=== PATIENT | male | born 1960 | race Caucasian/White ===

== ENCOUNTER 2017-10-14 10:36 | Inpatient (IN) | payer OTHER ==
[2017-10-14] MEDS ORDERED: RX INFO: IV CONTRAST WAS GIVEN 1 EACH MISC MISCELLANE PRN (13:31)
[2017-10-14 14:24] LABS: Basophils % (A) 0 %; Eosinophils # (A) 0.1 k/uL (0-0.7); Eosinophils % (A) 1 %; Hypochromasia Moderate; Lymphocytes % (A) 23 %; MCHC 31.2 g/dL (31.0-37.0); MCV 92.7 fL (80.0-100.0); Mean Platelet Volume 8.2; Monocytes # (A) 0.7 k/uL (0-1.0); Monocytes % (A) 8 %; Neutrophils # (A) 5.7 k/uL (1.3-7.7); Neutrophils % (A) 66 %; Platelet Count 235 k/uL (150-450); RBC 6.23 m/uL (4.30-5.90); RDW 14.4 % (11.5-15.5); WBC 8.7 k/uL (3.8-10.6)
[2017-10-14 14:26] LABS: HCT 57.7 % (39.0-53.0)
--- NOTE | 2017-10-14 15:08 | CT ---
EXAMINATION TYPE: CT chest w con DATE OF EXAM: 10/14/2017 COMPARISON: NONE HISTORY: SOB CT DLP: 818 mGycm Automated exposure control for dose reduction was used. CONTRAST: CT scan of the chest is performed with IV Contrast, patient injected with 100 mL of Isovue 300. FINDINGS: LUNGS: Scattered areas of patchy infiltrate within the right upper lobe as well as the lingula. Scatt ered groundglass infiltrates seen. Basilar compressive atelectasis. No pleural effusion or mass. MEDIASTINUM: 1.2 cm prevascular space lymph node noted. AP window lymph node measuring 9 mm. Low righ t paratracheal lymph node measuring 1.2 cm. Bilateral hilar adenopathy measuring 1.3 cm on the right and 1.1 cm on the left. Thoracic aorta is of normal caliber. The heart is not enlarged. UPPER ABDOMEN: No significant abnormality appreciated. OTHER: Adrenal glandular thickening noted on the left. IMPRESSION: 1. Scattered areas of infiltrate may reflect pneumonia. Correlate clinically. 2. Mediastinal and hilar adenopathy may be reactive in nature. Correlate clinically and consider prog ress studies. 3. Sliding-type hiatal hernia. 4. Nonspecific Adrenal glandular thickening on the left.
--- NOTE | 2017-10-14 16:00 | P.CNPUL ---
<Xiomara Montemayor E - Last Filed: 10/14/17 15:49> History of Present Illness Consult date: 10/14/17 Requesting physician: Irineo Mukherjee Reason for consult: pneumonia Chief complaint: shortness of breath History of present illness: This is a 57-year-old male patient being seen examined and evaluated for consultation. This patient is well-known to to our services. This patient comes in after direction from Dr. Tejada's office for having some significant hypoxia satting 72% on room air. He also has been complaining of a congested cough with yellow sputum. He is a half a pack to 1 pack per day smoker for approximately 25-30 years. Patient said on Saturday he also noticed some bilateral lower extremity swelling however denies any pain. Upon examination the patient's resting up in bed on 4 L of supplemental oxygen via nasal cannula. He is noted to have an elevated d-dimer of 0.61 and an elevated troponin of 0.042. BNP is 925. WBC is 8.7 and hemoglobin of 18. Patient is currently being transferred to the selective care unit. He did undergo a CT of the chest which did reveal scattered areas of infiltrates which may reflect pneumonia, mediastinal and hilar adenopathy which may be reactive nature, sliding type hiatal hernia and a nonspecific adrenal granular thickening on the left. Bilateral lower extremity Doppler has been ordered. A stat CMP has been ordered if the patient's kidney function is in normal range we will order a CTA at that time. Review of Systems 14 point review of systems was completed and is negative unless noted above in the HPI Past Medical History Past Medical History: COPD, Pneumonia Additional Past Medical History / Comment(s): Pt states prior to today, he was never diagnosed with copd, pneumonia 20 yrs ago, chronic back pain, R arm numbness/tingling and also involves R shoulder. History of Any Multi-Drug Resistant Organisms: None Reported Additional Past Surgical History / Comment(s): Colonoscopies with benign polypectomy, back injections. Past Anesthesia/Blood Transfusion Reactions: No Reported Reaction Smoking Status: Current every day smoker - Past Family History Father Family Medical History: COPD Additional Family Medical History / Comment(s): Father of copd at the age of 69yrs. He was a smoker. Mother Family Medical History: COPD, Hypertension Additional Family Medical History / Comment(s): Mother at the age of 78yrs. Medications and Allergies Home Medications Medication Instructions Recorded Confirmed Type Gabapentin [Neurontin] 300 mg PO BID 10/14/17 10/14/17 History Hydrocodone/Acetaminophen [[place] 1 tab PO TID PRN 10/14/17 10/14/17 History 10-325] Allergies Allergy/AdvReac Type Severity Reaction Status Date / Time No Known Allergies Allergy Verified 10/14/17 15:40 Physical Exam Vitals: Vital Signs Temp Pulse Resp BP Pulse Ox 10/14/17 14:15 97.9 F 81 18 130/78 90 L 10/14/17 12:31 98.0 F 73 18 141/85 91 L 10/14/17 12:22 98.0 F 91 18 141/85 91 L Intake and Output 10/14/17 10/14/17 10/14/17 06:59 14:59 22:59 Other: Weight 126.552 kg GENERAL EXAM: Alert, active, comfortable in no apparent distress. HEAD: Normocephalic. EYES: Normal reaction of pupils, equal size. NOSE: Clear with pink turbinates. THROAT: No erythema or exudates. NECK: No masses, no JVD. CHEST: No chest wall deformity. LUNGS: Poor air entry noted throughout with scattered end expiratory wheezes CVS: S1 and S2 normal with no audible mumurs, regular rhythm. ABDOMEN: No hepatosplenomegaly, normal bowel sounds, no guarding or rigidity. EXTREMITIES: +1 edema noted, pedal pulses palpable. CENTRAL NERVOUS SYSTEM: No focal deficits, tone is normal in all 4 extremities. Results - Laboratory Findings CBC and BMP: 10/14/17 13:45 PT/INR, D-dimer D-Dimer 0.61 mg/L FEU (<0.60) H 10/14/17 13:45 Abnormal lab findings: Abnormal Labs 10/14/17 10/14/17 10/14/17 13:45 13:45 13:45 RBC 6.23 H Hgb 18.0 H Hct 57.7 H D-Dimer 0.61 H Troponin I 0.042 H* - Diagnostic Findings CT scan - chest: report reviewed, image reviewed Assessment and Plan Assessment: Assessment Pneumonia Polycythemia likely related to chronic hypoxemia Elevated troponins Acute hypoxic respiratory failure requiring supplemental oxygen Nicotine dependence Bilateral lower extremity edema Mediastinal and hilar adenopathy on CT of the chest Sliding-type hiatal hernia on CT Suspect NOLA Plan Medications have been reviewed and will be continued as ordered. Antibiotics and steroids Mucinex, and Singulair DuoNeb and budesonide nebulizer treatments Smoking cessation Initiate and encourage incentive spirometer and flutter valve Obtain sputum culture Stat Doppler of the bilateral lower extremities Stat CMP if his kidney function within normal limits may obtain a CTA Labs: IgE, [place] ALLERGY panel, hypersensitivity pneumonitis, alpha-1 antitrypsin Continue with pulmonary hygiene, coughing and deep breathing exercises, and supportive care. Supplemental oxygen to maintain oxygen saturations of 92% or better. Continue nebulizer treatments. GI and DVT prophylaxis. Patient would benefit from a sleep study in the outpatient setting Cardiology on consult, echocardiogram will be obtained We will continue to monitor labs/results and adjust treatment as necessary. Further recommendations pending. Thank you for this consultation we will continue to follow this patient with you I performed an examination of the patient and discussed their management with the nurse practitioner. I have reviewed the nurse practitioner's note and agree with the documented findings and plan of care. <María Borjas - Last Filed: 10/14/17 16:29> Physical Exam Osteopathic Statement: *. No significant issues noted on an osteopathic structural exam other than those noted in the History and Physical/Consult. Vitals: Vital Signs Temp Pulse Resp BP Pulse Ox 10/14/17 14:15 97.9 F 81 18 130/78 90 L 10/14/17 12:31 98.0 F 73 18 141/85 91 L 10/14/17 12:22 98.0 F 91 18 141/85 91 L Intake and Output 10/14/17 10/14/17 10/14/17 06:59 14:59 22:59 Other: Weight 126.552 kg Results - Laboratory Findings CBC and BMP: 10/14/17 13:45 10/14/17 15:46 PT/INR, D-dimer D-Dimer 0.61 mg/L FEU (<0.60) H 10/14/17 13:45 Abnormal lab findings: Abnormal Labs 10/14/17 10/14/17 10/14/17 13:45 13:45 13:45 RBC 6.23 H Hgb 18.0 H Hct 57.7 H D-Dimer 0.61 H Carbon Dioxide BUN Creatinine Troponin I 0.042 H* LDL Cholesterol, Calc HDL Cholesterol 10/14/17 15:46 RBC Hgb Hct D-Dimer Carbon Dioxide 36 H BUN 8 L Creatinine 0.58 L Troponin I LDL Cholesterol, Calc 121 H HDL Cholesterol 34 L Assessment and Plan Assessment: Patient seen and examined. Patient with hypoxia. This is likely chronic as the patient does have polycythemia as well. Concern for underlying COPD as well as obstructive sleep apnea. CTA of the chest. IgE, ALLERGY panel, hypersensitivity pneumonitis panel, alpha-1 antitrypsin. Smoking cessation is highly recommended. Pulmicort and duo nebs. Singulair. Concern for possible HP as the patient did not have any signs or symptoms of pneumonia. Lower extremity Dopplers. Cardiology recommendations for elevated troponin. Echocardiogram pending. ~María Borjas DO
[2017-10-14 16:14] LABS: ALT 39 U/L (21-72); AST 18 U/L (17-59); Albumin 3.6 g/dL (3.5-5.0); Alkaline Phosphatase 48 U/L (38-126); Anion Gap 9 mmol/L; Blood Urea Nitrogen 8 mg/dL (9-20); Calcium 8.7 mg/dL (8.4-10.2); Carbon Dioxide 36 mmol/L (22-30); Chloride 100 mmol/L (98-107); Cholesterol 171 mg/dL (<200); Glucose 85 mg/dL (74-99); HDL Cholesterol 34 mg/dL (40-60); LDL Cholesterol,Calculated 121 mg/dL (0-99); Potassium 4.4 mmol/L (3.5-5.1); Sodium 145 mmol/L (137-145); Total Bilirubin 0.5 mg/dL (0.2-1.3); Total Protein 6.4 g/dL (6.3-8.2); Triglycerides 78 mg/dL (<150)
[2017-10-14] MEDS: LEVOFLOXACIN 500 MG TAB PO SCH (16:39)
--- NOTE | 2017-10-14 17:22 | US ---
EXAMINATION TYPE: US venous doppler duplex LE BI DATE OF EXAM: 10/14/2017 5:12 PM COMPARISON: NONE CLINICAL HISTORY: edema. Difficult exam due to patient body habitus SIDE PERFORMED: Bilateral TECHNIQUE: The lower extremity deep venous system is examined utilizing real time linear array sonog quinten with graded compression, doppler sonography and color-flow sonography. VESSELS IMAGED: External Iliac Vein (EIV) Common Femoral Vein Deep Femoral Vein Greater Saphenous Vein * Femoral Vein Popliteal Vein Small Saphenous Vein * Proximal Calf Veins (* superficial vessels) FINDINGS: Grayscale, color doppler, spectral doppler imaging performed of the deep veins of the lower extremities. There is normal flow, compressibility, vascular waveforms. IMPRESSION: RIGHT LOWER EXTREMITY: NEGATIVE FOR DVT. LEFT LOWER EXTREMITY: NEGATIVE FOR DVT.
[2017-10-14] MEDS: methylPREDNISolone SOD SUCCI 125 MG/2 ML VIAL IV SCH ×2 (17:45→23:22)
[2017-10-14] MEDS: HEPARIN SODIUM,PORCINE 5,000 UNIT/ML 1 ML VIAL SQ SCH ×2 (17:47→23:24)
[2017-10-14] MEDS: PANTOPRAZOLE 40 MG TABLET PO SCH (17:47)
[2017-10-14] MEDS: BUDESONIDE 0.5 MG/2 ML NEBU INHALATION SCH (19:24)
[2017-10-14] MEDS: IPRATROPIUM-ALBUTEROL 3 ML NEB INHALATION SCH (19:24)
[2017-10-14] MEDS: MONTELUKAST 10 MG TAB PO SCH (20:34)
[2017-10-14] MEDS: guaiFENesin 600 MG TABLET.ER PO SCH (20:34)
[2017-10-14 21:09] LABS: Glucose,Whole Blood 102 mg/dL (75-99)
[2017-10-14 22:59] LABS: Hemoglobin A1C 5.8 % (4.0-6.0)
[2017-10-14 23:00] LABS: Glucose,Whole Blood 112 mg/dL (75-99)
[2017-10-14 23:30] LABS: ABG Base Excess 8.5 mmol/L; ABG HCO3 35 mmol/L (21-25); ABG Oxygen Saturation 86.1 % (94-97); ABG PO2 55 mmHg (83-108); ABG TCO2 37 mmol/L (19-24)
[2017-10-14 23:37] LABS: ABG PCO2 71 mmHg (35-45)
[2017-10-15 02:48] LABS: Basophils % (A) 0 %; Eosinophils % (A) 0 %; HCT 54.5 % (39.0-53.0); HGB 16.8 gm/dL (13.0-17.5); Hypochromasia Marked; Lymphocytes # (A) 0.8 k/uL (1.0-4.8); Lymphocytes % (A) 9 %; MCH 29.1 pg (25.0-35.0); MCHC 30.8 g/dL (31.0-37.0); MCV 94.3 fL (80.0-100.0); Mean Platelet Volume 7.8; Monocytes # (A) 0.3 k/uL (0-1.0); Monocytes % (A) 3 %; Neutrophils # (A) 7.7 k/uL (1.3-7.7); Neutrophils % (A) 87 %; Platelet Count 235 k/uL (150-450); RBC 5.78 m/uL (4.30-5.90); RDW 14.2 % (11.5-15.5); WBC 8.8 k/uL (3.8-10.6)
[2017-10-15 02:49] LABS: ALT 37 U/L (21-72); AST 28 U/L (17-59); Albumin 3.7 g/dL (3.5-5.0); Alkaline Phosphatase 47 U/L (38-126); Anion Gap 11 mmol/L; Blood Urea Nitrogen 9 mg/dL (9-20); Carbon Dioxide 31 mmol/L (22-30); Chloride 100 mmol/L (98-107); Glucose 102 mg/dL (74-99); Potassium 5.5 mmol/L (3.5-5.1); Sodium 142 mmol/L (137-145); Total Bilirubin 0.7 mg/dL (0.2-1.3); Total Protein 6.5 g/dL (6.3-8.2)
[2017-10-15 06:09] LABS: Glucose,Whole Blood 101 mg/dL (75-99)
[2017-10-15] MEDS: PANTOPRAZOLE 40 MG TABLET PO SCH (06:23)
[2017-10-15] MEDS: methylPREDNISolone SOD SUCCI 125 MG/2 ML VIAL IV SCH ×4 (06:23→23:37)
[2017-10-15] MEDS: BUDESONIDE 0.5 MG/2 ML NEBU INHALATION SCH ×2 (07:53→20:37)
[2017-10-15] MEDS: IPRATROPIUM-ALBUTEROL 3 ML NEB INHALATION SCH ×3 (07:53→20:37)
[2017-10-15] MEDS: guaiFENesin 600 MG TABLET.ER PO SCH ×2 (09:03→20:09)
[2017-10-15] MEDS: HEPARIN SODIUM,PORCINE 5,000 UNIT/ML 1 ML VIAL SQ SCH ×3 (09:03→23:37)
--- NOTE | 2017-10-15 09:09 | HP ---
HISTORY AND PHYSICAL CHIEF COMPLAINT: This is a 57-year-old white male admitted for severe hypoxemia 72% on room air to 78% with cough with yellow sputum, half a pack of cigarettes for 25 to 30 years. He has gained 16 pounds in the last 2 months. He normally walks around on room air. He has never been saturating below 90% ever before. Never had shortness of breath like this before or swelling like this before. He had elevated D-dimer 0.61 and elevated troponin. BNP was 925. White count is 8.7, hemoglobin is 18. CT of the chest shows pneumonia, adenopathy, hiatal hernia. Dopplers of the lower legs were negative for blood clot. Will start him on some IV Lasix at this time as well as broad-spectrum antibiotics. REVIEW OF SYSTEM: Fourteen-point review is negative except for as mentioned in HPI. PAST MEDICAL HISTORY: Nicotine addiction, COPD, pneumonia, 20 years chronic back pain, right arm numbness, tingling. SURGERIES: Colonoscopy with benign polypectomy, back injections. FAMILY HISTORY: Father COPD, age 69, smoker. Mother has COPD, hypertension. HOME MEDICINES: Neurontin and [place]. ALLERGIES: No known drug allergies. PHYSICAL EXAMINATION: VITAL SIGNS: Temp 97.9, pulse 81, respiratory 16 to 18, blood pressure 130s over 80s, O2 is 90% on 4 L, on room air. Generally, he looks swollen, puffy everywhere. HEMATOLOGY: 2 to 3+ pedal edema bilaterally. ABDOMEN: Distended due to obesity. No hepatosplenomegaly. CARDIOVASCULAR: S1, S2. Lungs shows decreased breath sounds x4. CHEST: No chest wall abnormalities. Neck showed no JVD. Nose, clear picture of THROAT: No erythema, no exudate. [id number], hematocrit 57.7. D-dimer 0.61. Troponin 0.042. ASSESSMENT: 1. Community-acquired pneumonia secondary polycythemia secondary to chronic hypoxemia. 2. Elevated troponin, rule out myocardial infarction. 3. Nicotine addiction. 4. Acute hypoxemic respiratory distress. 5. Suspect right-sided heart failure secondary to chronic obstructive pulmonary disease. 6. Mediastinal hilar adenopathy on CAT scan of the chest. 7. Sliding hiatal hernia. 8. Suspect sleep apnea. Start him on IV antibiotics, IV steroids, IV Lasix. Echo was ordered. IV Lasix will be needed. Please see further orders. MMODL / IJN: [id number] /
[2017-10-15] MEDS: FUROSEMIDE 10 MG/ML 4 ML VIAL IV SCH ×2 (09:10→20:09)
--- NOTE | 2017-10-15 09:53 | P.PN ---
Subjective Progress Note Date: 10/15/17 HPI: This is a 57-year-old male patient being seen examined and evaluated for consultation. This patient is well-known to to our services. This patient comes in after direction from Dr. Tejada's office for having some significant hypoxia satting 72% on room air. He also has been complaining of a congested cough with yellow sputum. He is a half a pack to 1 pack per day smoker for approximately 25-30 years. Patient said on Saturday he also noticed some bilateral lower extremity swelling however denies any pain. Upon examination the patient's resting up in bed on 4 L of supplemental oxygen via nasal cannula. He is noted to have an elevated d-dimer of 0.61 and an elevated troponin of 0.042. BNP is 925. WBC is 8.7 and hemoglobin of 18. Patient is currently being transferred to the selective care unit. He did undergo a CT of the chest which did reveal scattered areas of infiltrates which may reflect pneumonia, mediastinal and hilar adenopathy which may be reactive nature, sliding type hiatal hernia and a nonspecific adrenal granular thickening on the left. Bilateral lower extremity Doppler has been ordered. A stat CMP has been ordered if the patient's kidney function is in normal range we will order a CTA at that time. Interval history 10/15/17- patient is being seen examined and evaluated today on rounds. Patient did undergo bilateral lower extremity Doppler yesterday which was negative. Overnight the patient did have some episodes of hypoxia and the nurse noted that the patient was blue. He was awoken and ABGs were drawn stat his pH was 7.3 pCO2 of 71, O2 55 and HCO3 was 35. BiPAP was ordered and the patient refused at that time and wanted to just use nasal cannula. His oxygen saturations did come up nicely while awake on supplemental oxygen. This was discussed with the patient that he could possibly be doing this chronically at home. And the importance of his sleep study is reiterated. Patient states he understands the risk of untreated severe sleep apnea and he would like to trial the BiPAP tonight. Upon examination is resting up in bed on supplemental oxygen via nasal cannula. States he does have some shortness of breath with exertion however feels better since admission. We'll obtain a CTA of the chest to rule out PE this is discussed with the patient and he is agreeable. Objective - Vital Signs Vital signs: Vital Signs Temp 97.4 F L 10/15/17 09:14 Pulse 90 10/15/17 09:15 Resp 20 10/15/17 09:15 BP 152/70 10/15/17 09:14 Pulse Ox 91 L 10/15/17 09:14 Intake & Output 10/14/17 10/15/17 10/15/17 18:59 06:59 18:59 Intake Total 240 150 100 Output Total 200 Balance 240 150 -100 Weight 126.552 kg 133.5 kg Intake: Oral 240 150 100 Output: Urine 200 Other: Voiding Method Toilet Toilet Toilet # Voids 1 1 - Exam GENERAL EXAM: Alert, active, comfortable in no apparent distress. HEAD: Normocephalic. EYES: Normal reaction of pupils, equal size. NOSE: Clear with pink turbinates. THROAT: No erythema or exudates. NECK: No masses, no JVD. CHEST: No chest wall deformity. LUNGS: Poor air entry noted throughout with scattered end expiratory wheezes CVS: S1 and S2 normal with no audible mumurs, regular rhythm. ABDOMEN: No hepatosplenomegaly, normal bowel sounds, no guarding or rigidity. EXTREMITIES: +1 edema noted, pedal pulses palpable. CENTRAL NERVOUS SYSTEM: No focal deficits, tone is normal in all 4 extremities. - Labs CBC & Chem 7: 10/15/17 01:02 10/15/17 01:02 Labs: Abnormal Lab Results - Last 24 Hours (Table) 10/14/17 10/14/17 10/14/17 Range/Units 13:45 13:45 13:45 RBC 6.23 H (4.30-5.90) m/uL Hgb 18.0 H (13.0-17.5) gm/dL Hct 57.7 H (39.0-53.0) % MCHC (31.0-37.0) g/dL Lymphocytes # (1.0-4.8) k/uL D-Dimer 0.61 H (<0.60) mg/L FEU ABG pH (7.35-7.45) ABG pCO2 (35-45) mmHg ABG pO2 (83-108) mmHg ABG HCO3 (21-25) mmol/L ABG Total CO2 (19-24) mmol/L ABG O2 Saturation (94-97) % Potassium (3.5-5.1) mmol/L Carbon Dioxide (22-30) mmol/L BUN (9-20) mg/dL Creatinine (0.66-1.25) mg/dL Glucose (74-99) mg/dL POC Glucose (mg/dL) (75-99) mg/dL Troponin I 0.042 H* (0.000-0.034) ng/mL LDL Cholesterol, Calc (0-99) mg/dL HDL Cholesterol (40-60) mg/dL 10/14/17 10/14/17 10/14/17 Range/Units 15:46 21:07 22:57 RBC (4.30-5.90) m/uL Hgb (13.0-17.5) gm/dL Hct (39.0-53.0) % MCHC (31.0-37.0) g/dL Lymphocytes # (1.0-4.8) k/uL D-Dimer (<0.60) mg/L FEU ABG pH (7.35-7.45) ABG pCO2 (35-45) mmHg ABG pO2 (83-108) mmHg ABG HCO3 (21-25) mmol/L ABG Total CO2 (19-24) mmol/L ABG O2 Saturation (94-97) % Potassium (3.5-5.1) mmol/L Carbon Dioxide 36 H (22-30) mmol/L BUN 8 L (9-20) mg/dL Creatinine 0.58 L (0.66-1.25) mg/dL Glucose (74-99) mg/dL POC Glucose (mg/dL) 102 H 112 H (75-99) mg/dL Troponin I (0.000-0.034) ng/mL LDL Cholesterol, Calc 121 H (0-99) mg/dL HDL Cholesterol 34 L (40-60) mg/dL 10/14/17 10/15/17 10/15/17 Range/Units 23:26 01:02 01:02 RBC (4.30-5.90) m/uL Hgb (13.0-17.5) gm/dL Hct 54.5 H (39.0-53.0) % MCHC 30.8 L (31.0-37.0) g/dL Lymphocytes # 0.8 L (1.0-4.8) k/uL D-Dimer (<0.60) mg/L FEU ABG pH 7.30 L (7.35-7.45) ABG pCO2 71 H* (35-45) mmHg ABG pO2 55 L (83-108) mmHg ABG HCO3 35 H (21-25) mmol/L ABG Total CO2 37 H (19-24) mmol/L ABG O2 Saturation 86.1 L (94-97) % Potassium 5.5 H (3.5-5.1) mmol/L Carbon Dioxide 31 H (22-30) mmol/L BUN (9-20) mg/dL Creatinine 0.60 L (0.66-1.25) mg/dL Glucose 102 H (74-99) mg/dL POC Glucose (mg/dL) (75-99) mg/dL Troponin I (0.000-0.034) ng/mL LDL Cholesterol, Calc (0-99) mg/dL HDL Cholesterol (40-60) mg/dL 10/15/17 Range/Units 06:07 RBC (4.30-5.90) m/uL Hgb (13.0-17.5) gm/dL Hct (39.0-53.0) % MCHC (31.0-37.0) g/dL Lymphocytes # (1.0-4.8) k/uL D-Dimer (<0.60) mg/L FEU ABG pH (7.35-7.45) ABG pCO2 (35-45) mmHg ABG pO2 (83-108) mmHg ABG HCO3 (21-25) mmol/L ABG Total CO2 (19-24) mmol/L ABG O2 Saturation (94-97) % Potassium (3.5-5.1) mmol/L Carbon Dioxide (22-30) mmol/L BUN (9-20) mg/dL Creatinine (0.66-1.25) mg/dL Glucose (74-99) mg/dL POC Glucose (mg/dL) 101 H (75-99) mg/dL Troponin I (0.000-0.034) ng/mL LDL Cholesterol, Calc (0-99) mg/dL HDL Cholesterol (40-60) mg/dL Microbiology - Last 24 Hours (Table) 10/14/17 20:41 Gram Stain - Preliminary Sputum Sputum Culture - Preliminary Assessment and Plan Assessment: Assessment Possible Pneumonia, vs possible hypersensitivity pneumonitis Polycythemia likely related to chronic hypoxemia Elevated troponins Acute hypoxic respiratory failure requiring supplemental oxygen Suspect underlying COPD Nicotine dependence Bilateral lower extremity edema Mediastinal and hilar adenopathy on CT of the chest Sliding-type hiatal hernia on CT Suspect [place] Plan Medications have been reviewed and will be continued as ordered. Antibiotics and steroids Mucinex, and Singulair DuoNeb and budesonide nebulizer treatments Smoking cessation Initiate and encourage incentive spirometer and flutter valve Obtain sputum culture Stat Doppler of the bilateral lower extremities, negative Obtain a CTA of the chest Labs: IgE, [place] ALLERGY panel, hypersensitivity pneumonitis, alpha-1 antitrypsin, pending Continue with pulmonary hygiene, coughing and deep breathing exercises, and supportive care. Supplemental oxygen to maintain oxygen saturations of 92% or better. Continue nebulizer treatments. GI and DVT prophylaxis. Patient would benefit from a sleep study in the outpatient setting Cardiology on consult, echocardiogram will be obtained We will continue to monitor labs/results and adjust treatment as necessary. Further recommendations pending. Thank you for this consultation we will continue to follow this patient with you I performed an examination of the patient and discussed their management with the nurse practitioner. I have reviewed the nurse practitioner's note and agree with the documented findings and plan of care.
--- NOTE | 2017-10-15 12:01 | ECHOF ---
Referral Reason:Sinus Arrhythmia on EKG MEASUREMENTS -------- HEIGHT: 175.3 cm WEIGHT: 126.6 kg BP: 141/85 RVIDd: 3.4 cm (< 3.3) IVSd: 1.5 cm (0.6 - 1.1) LVIDd: 3.3 cm (3.9 - 5.3) LVPWd: 1.3 cm (0.6 - 1.1) IVSs: 1.9 cm LVIDs: 2.3 cm LVPWs: 1.6 cm LAESV Index (A-L): 22.74 ml/m Ao Diam: 3.8 cm (2.0 - 3.7) AV Cusp: 1.8 cm (1.5 - 2.6) LA Diam: 3.4 cm (2.7 - 3.8) MV E [place]: 1.01 m/s MV DecT: 198 ms MV A [place]: 0.88 m/s MV E/A Ratio: 1.14 RAP: 15.00 mmHg RVSP: 24.93 mmHg FINDINGS -------- Sinus rhythm. This was a technically adequate study. The left ventricular size is normal. There is moderate concentric left ventricular hypertrophy. O verall left ventricular systolic function is normal with, an EF between 55 - 60 %. The right ventricle is mildly enlarged. Normal LA size by volume 22+/-6 ml/m2. The right atrium is normal in size. The aortic valve was not well visualized. The mitral valve is normal. Mild mitral regurgitation is present. Trace tricuspid regurgitation present. Right ventricular systolic pressure is normal at < 35 mmHg. There is no evidence of pulmonary hypertension. The pulmonic valve was not well visualized. There is no pulmonic regurgitation present. The aortic root size is normal. The inferior vena cava is dilated with no significant inspiratory collapse which is consistent estima carmine right atrial pressure of >20 mmHg. There is no pericardial effusion. CONCLUSIONS -------- 1. Sinus rhythm. 2. This was a technically adequate study. 3. The left ventricular size is normal. 4. There is moderate concentric left ventricular hypertrophy. 5. Overall left ventricular systolic function is normal with, an EF between 55 - 60 %. 6. The right ventricle is mildly enlarged. 7. Normal LA size by volume 22+/-6 ml/m2. 8. The aortic valve was not well visualized. 9. Mild mitral regurgitation is present. 10. Trace tricuspid regurgitation present. 11. Right ventricular systolic pressure is normal at < 35 mmHg. 12. The pulmonic valve was not well visualized. 13. There is no pulmonic regurgitation present. 14. The aortic root size is normal. 15. The inferior vena cava is dilated with no significant inspiratory collapse which is consistent es timated right atrial pressure of >20 mmHg. 16. There is no pericardial effusion. DIE KEEPER: Paco Hampton RDCS
[2017-10-15 12:07] LABS: Glucose,Whole Blood 108 mg/dL (75-99)
--- NOTE | 2017-10-15 16:02 | P.CRDCN ---
History of Present Illness History of present illness: Mr. Russell is a pleasant 57-year-old male with no significant past medical history. He states he has never been diagnosed with COPD in the past. He has chronic nicotine dependence. He denies history of coronary artery disease and has never seen a lottery manager for any reason. We've been asked to see him in consultation secondary to sinus arrhythmia. He apparently went to see him PCP for symptoms of cough and lower extremity swelling. He states over the previous few months he has noticed his legs swelling more and more which has become increasing uncomfortable to tolerate. His oxygen saturation at the office a 70% to percent on room air. For this reason he was sent to the hospital. Upon arrival a CT of his chest was ordered and revealed scattered areas of infiltrate reflective of pneumonia, mediastinal and hilar adenopathy possibly reactive in nature, sliding hiatal hernia and nonspecific adrenal glandular thickening on the left. An echocardiogram was obtained which revealed preserved left ventricular systolic function with ejection fraction 55- 60%, mildly enlarged right ventricle, mild MR, no evidence of pulmonary hypertension with an RVSP of less than 35 mmHg. Bilateral lower extremity Dopplers were negative for DVT. He is currently being treated with IV Lasix, Mucinex, breathing treatment, IV levofloxacin and IV steroids. Last night he had an acute Hypoxic event in which time the nurses checked on him and is coloring was blue, ABG was obtained and BiPAP was ordered. He refused to wear the BiPAP. Pulmonary has seen the patient and has highly recommended a sleep study. He states his breathing seems mildly better since admission. He denies ever having had symptoms of chest pain, palpitations, dizziness, nausea, vomiting or diaphoresis. He denies PND or orthopnea. There is no EKG to evaluate, one will be ordered now. Laboratory data reviewed, hemoglobin 16.8, platelets 235, sodium 142, potassium 5.5, troponin on admission 0.042, 0.030, 0.020, TSH 1.33, proBNP 925. Review of Systems At the time my exam: CONSTITUTIONAL: Denies fever. Denies chills. EYES: Denies blurred vision. Denies vision changes. Denies eye pain. EARS, NOSE, MOUTH & THROAT: Denies headache. Denies sore throat. Denies ear pain. CARDIOVASCULAR: Denies chest pain. Denies shortness of breath. Denies orthopnea. Denies PND. Denies palpitations. RESPIRATORY: Denies cough. GASTROINTESTINAL: Denies abdominal pain. Denies diarrhea. Denies constipation. Denies nausea. Denies vomiting. MUSCULOSKELETAL: Denies myalgias. INTEGUMENTARY: Denies pruitis. Denies rash. NEUROLOGIC: Denies numbness. Denies tingling. Denies weakness. PSYCHIATRIC: Denies anxiety. Denies depression. ENDOCRINE: Denies fatigue. Denies weight change. Denies polydipsia. Denies polyurina. GENITOURINARY: Denies burning, hematuria or urgency with micturation. HEMATOLOGIC: Denies history of anemia. Denies bleeding. Past Medical History Past Medical History: COPD, Pneumonia Additional Past Medical History / Comment(s): Pt states prior to today, he was never diagnosed with copd, pneumonia 20 yrs ago, chronic back pain, R arm numbness/tingling and also involves R shoulder. History of Any Multi-Drug Resistant Organisms: None Reported Additional Past Surgical History / Comment(s): Colonoscopies with benign polypectomy, back injections. Past Anesthesia/Blood Transfusion Reactions: No Reported Reaction Smoking Status: Current every day smoker - Past Family History Father Family Medical History: COPD Additional Family Medical History / Comment(s): Father of copd at the age of 69yrs. He was a smoker. Mother Family Medical History: COPD, Hypertension Additional Family Medical History / Comment(s): Mother at the age of 78yrs. Medications and Allergies Home Medications Medication Instructions Recorded Confirmed Type Gabapentin [Neurontin] 300 mg PO BID 10/14/17 10/14/17 History Hydrocodone/Acetaminophen [[place] 1 tab PO TID PRN 10/14/17 10/14/17 History 10-325] Allergies Allergy/AdvReac Type Severity Reaction Status Date / Time No Known Allergies Allergy Verified 10/14/17 15:40 Physical Exam Vitals: Vital Signs Temp Pulse Pulse Resp BP Pulse Ox 10/15/17 12:56 76 10/15/17 12:50 76 10/15/17 11:24 97.3 F L 72 20 138/69 92 L 10/15/17 09:15 90 20 10/15/17 09:14 97.4 F L 90 20 152/70 91 L 10/15/17 08:15 62 10/15/17 07:55 63 91 L 10/15/17 03:53 98.2 F 76 20 146/70 91 L 10/15/17 00:00 97.3 F L 71 20 140/70 92 L 10/14/17 20:00 97.3 F L 70 20 148/68 91 L 10/14/17 19:43 72 10/14/17 19:27 72 10/14/17 17:33 73 22 10/14/17 17:32 97.0 F L 73 22 160/78 93 L Intake and Output 10/15/17 10/15/17 10/15/17 06:59 14:59 22:59 Intake Total 150 340 Output Total 200 Balance 150 140 Intake: Oral 150 340 Output: Urine 200 Other: Voiding Method Toilet Toilet # Voids 1 Weight 133.5 kg Blood pressure 138/69 heart rate 72 afebrile maintaining oxygen saturation on nasal cannula GENERAL: This is a 57-year-old male in no apparent distress at the time of my examination. HEENT: Head is atraumatic, normocephalic. Pupils are equal, round. Sclerae anicteric. Conjunctivae are clear. Mucous membranes of the mouth are moist. Neck is supple. There is no jugular venous distention. No carotid bruit is heard. LUNGS: Diminished bilaterally with expiratory wheezes noted. No rales or rhonchi. No chest wall tenderness is noted on palpation or with deep breathing. HEART: Regular rate and rhythm without murmurs, rubs or gallops. S1 and S2 heard. ABDOMEN: Soft, nontender. Bowel sounds are heard. No organomegaly noted. EXTREMITIES: 1+ bilateral lower extremity pitting edema and no calf tenderness noted. VASCULAR: Radial and dorsalis pedis pulses palpated, no evidence of clubbing. NEUROLOGIC: Patient is awake, alert and oriented x3. Results 10/15/17 01:02 10/15/17 01:02 Cardiac Enzymes 10/14/17 10/14/17 10/15/17 Range/Units 15:46 19:21 01:02 AST 18 (17-59) U/L Troponin I 0.030 0.020 (0.000-0.034) ng/mL 10/15/17 Range/Units 01:02 AST 28 (17-59) U/L Troponin I (0.000-0.034) ng/mL Lipids 10/14/17 Range/Units 15:46 Triglycerides 78 (<150) mg/dL Cholesterol 171 (<200) mg/dL HDL Cholesterol 34 L (40-60) mg/dL CBC 10/15/17 Range/Units 01:02 WBC 8.8 (3.8-10.6) k/uL RBC 5.78 (4.30-5.90) m/uL Hgb 16.8 (13.0-17.5) gm/dL Hct 54.5 H (39.0-53.0) % Plt Count 235 (150-450) k/uL Comprehensive Metabolic Panel 10/14/17 10/15/17 Range/Units 15:46 01:02 Sodium 145 142 (137-145) mmol/L Potassium 4.4 5.5 H (3.5-5.1) mmol/L Chloride 100 100 (98-107) mmol/L Carbon Dioxide 36 H 31 H (22-30) mmol/L BUN 8 L 9 (9-20) mg/dL Creatinine 0.58 L 0.60 L (0.66-1.25) mg/dL Glucose 85 102 H (74-99) mg/dL Calcium 8.7 9.0 (8.4-10.2) mg/dL AST 18 28 (17-59) U/L ALT 39 37 (21-72) U/L Alkaline Phosphatase 48 47 (38-126) U/L Total Protein 6.4 6.5 (6.3-8.2) g/dL Albumin 3.6 3.7 (3.5-5.0) g/dL Current Medications Generic Name Dose Route Start Last Admin Trade Name Freq PRN Reason Stop Dose Admin Albuterol/Ipratropium 3 ml 10/14/17 20:00 10/15/17 12:48 Duoneb 0.5 Mg-3 Mg/3 Ml Soln INHALATION 3 ml RT-TID ARY Administration Budesonide 0.5 mg 10/14/17 20:00 10/15/17 07:53 Pulmicort INHALATION 0.5 mg RT-BID ARY Administration Furosemide 40 mg 10/15/17 09:00 10/15/17 09:10 Lasix IV 40 mg Q12HR ARY Administration Guaifenesin 1,200 mg 10/14/17 21:00 10/15/17 09:03 Mucinex PO 1,200 mg Q12HR ARY Administration Heparin Sodium (Porcine) 5,000 unit 10/14/17 16:15 10/15/17 09:03 Heparin SQ 5,000 unit Q8HR ARY Administration Levofloxacin 500 mg 10/14/17 17:00 10/14/17 16:39 Levaquin PO 500 mg Q24H ARY Administration Methylprednisolone Sodium Succinate 60 mg 10/14/17 18:00 10/15/17 11:57 Solu-Medrol IV 60 mg Q6HR ARY Administration Miscellaneous Information 1 each 10/14/17 13:31 Rx Info: Iv Contrast Was Given MISCELLANE 10/16/17 13:31 DAILY PRN Per Protocol Montelukast Sodium 10 mg 10/14/17 21:00 10/14/17 20:34 Singulair PO 10 mg HS ARY Administration Pantoprazole Sodium 40 mg 10/14/17 16:15 10/15/17 06:23 Protonix PO 40 mg [id number] ARY Administration Intake and Output 10/15/17 10/15/17 10/15/17 06:59 14:59 22:59 Intake Total 150 340 Output Total 200 Balance 150 140 Intake: Oral 150 340 Output: Urine 200 Other: Voiding Method Toilet Toilet # Voids 1 Weight 133.5 kg 10/15/17 01:02 10/15/17 01:02 Assessment and Plan Assessment: ASSESSMENT 1. Pneumonia, community acquired. On IV antibiotics and steroids. 2. Acute hypoxic respiratory failure secondary to COPD 3. Mild troponin leak not indicative of an acute coronary event possibly secondary to an acute oxygen supply and demand mismatch 4. Mild diastolic heart failure, acute. Elevated proBNP and b/l lower extremity swelling with shortness of breath. 5. Chronic nicotine dependence 6. Suspect COPD 7. Suspect sleep apnea PLAN CT angio of the chest is pending to rule out pulmonary embolism. Mild troponin leak not indicative of an acute coronary event. We will obtain an EKG to evaluate for sinus arrhythmia. Continue with diuresis, follow kidney function and electrolytes daily. Daily weights and intake and output to accurately assess diuresis. Further recommendations to follow based on clinical course. Thank you kindly for this consultation. Nurse Practitioner note has been reviewed, I agree with a documented findings and plan of care. Patient was seen and examined.
[2017-10-15 16:32] LABS: Glucose,Whole Blood 231 mg/dL (75-99)
[2017-10-15] MEDS: INSULIN ASPART 100 UNIT/ML 1 ML 10 ML VIAL SQ SCH ×2 (17:19→21:50)
[2017-10-15] MEDS: LEVOFLOXACIN 500 MG TAB PO SCH (17:20)
[2017-10-15] MEDS: MONTELUKAST 10 MG TAB PO SCH (20:09)
[2017-10-15 20:53] LABS: Glucose,Whole Blood 91 mg/dL (75-99)
--- NOTE | 2017-10-15 21:53 | CT ---
CT CHEST FOR PULMONARY EMBOLISM. EXAMINATION TYPE: CT angio chest DATE OF EXAM: 10/15/2017 INDICATION: R/O PE CT DLP: 767.4 mGycm, Automated exposure control for dose reduction was used. CONTRAST: Patient injected with 70 mL of Isovue 370. COMPARISON: NONE TECHNIQUE: CT of the chest is performed on a spiral scan at 2 mm thick sections. Study is performed with intravenous contrast timed for evaluation for pulmonary embolism. This will limit additional po rtions of the evaluation. 3-D MIP images reconstructed by the technologist are reviewed on the compu ter in the coronal and sagittal planes. FINDINGS: No persistent filling defects are evident to suggest an acute pulmonary embolism. Scattered small lymph nodes are present. Enlarged lymph nodes by CT criteria are not evident. The as cending aorta diameter at the level of the main pulmonary artery is 3.9 cm. The main pulmonary arter y diameter at the bifurcation is 3.5 cm. Emphysematous changes are present. Pneumonitis changes within the lingula. Correlate for atelectasis. There is some linear opacities to the right middle lobe. Correlate for atelectasis. Bibasilar infilt rates are present most likely atelectasis. Follow-up chest studies can be performed to confirm resolu tion. There is some compressive atelectasis dependent portions of the lung bases bilaterally. Limited CT sections are obtained through the upper abdomen. Left adrenal gland is slightly prominent at 1.5 cm. Consider follow-up. IMPRESSIONS: 1. No acute pulmonary embolism. 2. Probable atelectasis within the lung bases. Follow-up chest CT in 6 months can be performed to con firm resolution. 3. Mild diffuse prominence through the left adrenal gland. Consider follow-up.
[2017-10-16 06:01] LABS: Glucose,Whole Blood 120 mg/dL (75-99)
[2017-10-16] MEDS: INSULIN ASPART 100 UNIT/ML 1 ML 10 ML VIAL SQ SCH ×4 (06:19→21:05)
[2017-10-16] MEDS: methylPREDNISolone SOD SUCCI 125 MG/2 ML VIAL IV SCH (06:25)
[2017-10-16] MEDS: PANTOPRAZOLE 40 MG TABLET PO SCH (06:25)
[2017-10-16 06:27] LABS: Basophils % (A) 0 %; Eosinophils # (A) 0.1 k/uL (0-0.7); Eosinophils % (A) 1 %; HCT 54.9 % (39.0-53.0); HGB 17.3 gm/dL (13.0-17.5); Hypochromasia Slight; Lymphocytes # (A) 0.8 k/uL (1.0-4.8); Lymphocytes % (A) 7 %; MCH 28.9 pg (25.0-35.0); MCHC 31.5 g/dL (31.0-37.0); MCV 91.6 fL (80.0-100.0); Mean Platelet Volume 7.1; Monocytes # (A) 0.4 k/uL (0-1.0); Monocytes % (A) 4 %; Neutrophils # (A) 11.3 k/uL (1.3-7.7); Neutrophils % (A) 89 %; Platelet Count 248 k/uL (150-450); RBC 5.99 m/uL (4.30-5.90); RDW 14.3 % (11.5-15.5); WBC 12.8 k/uL (3.8-10.6)
[2017-10-16 06:39] LABS: ALT 35 U/L (21-72); AST 17 U/L (17-59); Albumin 3.8 g/dL (3.5-5.0); Alkaline Phosphatase 46 U/L (38-126); Anion Gap 11 mmol/L; Blood Urea Nitrogen 16 mg/dL (9-20); Calcium 9.3 mg/dL (8.4-10.2); Carbon Dioxide 35 mmol/L (22-30); Chloride 94 mmol/L (98-107); Glucose 130 mg/dL (74-99); Potassium 4.8 mmol/L (3.5-5.1); Sodium 140 mmol/L (137-145); Total Bilirubin 0.6 mg/dL (0.2-1.3); Total Protein 6.6 g/dL (6.3-8.2)
[2017-10-16] MEDS: IPRATROPIUM-ALBUTEROL 3 ML NEB INHALATION SCH ×3 (08:07→20:32)
[2017-10-16] MEDS: BUDESONIDE 0.5 MG/2 ML NEBU INHALATION SCH ×2 (08:07→20:31)
[2017-10-16] MEDS: guaiFENesin 600 MG TABLET.ER PO SCH ×2 (08:52→21:09)
[2017-10-16] MEDS: HEPARIN SODIUM,PORCINE 5,000 UNIT/ML 1 ML VIAL SQ SCH ×3 (08:52→23:45)
[2017-10-16] MEDS: FUROSEMIDE 10 MG/ML 4 ML VIAL IV SCH ×2 (08:53→21:09)
--- NOTE | 2017-10-16 11:28 | P.PN ---
<Xiomara Montemayor E - Last Filed: 10/16/17 11:24> Subjective Progress Note Date: 10/16/17 HPI: This is a 57-year-old male patient being seen examined and evaluated for consultation. This patient is well-known to to our services. This patient comes in after direction from Dr. Tejada's office for having some significant hypoxia satting 72% on room air. He also has been complaining of a congested cough with yellow sputum. He is a half a pack to 1 pack per day smoker for approximately 25-30 years. Patient said on Saturday he also noticed some bilateral lower extremity swelling however denies any pain. Upon examination the patient's resting up in bed on 4 L of supplemental oxygen via nasal cannula. He is noted to have an elevated d-dimer of 0.61 and an elevated troponin of 0.042. BNP is 925. WBC is 8.7 and hemoglobin of 18. Patient is currently being transferred to the selective care unit. He did undergo a CT of the chest which did reveal scattered areas of infiltrates which may reflect pneumonia, mediastinal and hilar adenopathy which may be reactive nature, sliding type hiatal hernia and a nonspecific adrenal granular thickening on the left. Bilateral lower extremity Doppler has been ordered. A stat CMP has been ordered if the patient's kidney function is in normal range we will order a CTA at that time. Interval history 10/15/17- patient is being seen examined and evaluated today on rounds. Patient did undergo bilateral lower extremity Doppler yesterday which was negative. Overnight the patient did have some episodes of hypoxia and the nurse noted that the patient was blue. He was awoken and ABGs were drawn stat his pH was 7.3 pCO2 of 71, O2 55 and HCO3 was 35. BiPAP was ordered and the patient refused at that time and wanted to just use nasal cannula. His oxygen saturations did come up nicely while awake on supplemental oxygen. This was discussed with the patient that he could possibly be doing this chronically at home. And the importance of his sleep study is reiterated. Patient states he understands the risk of untreated severe sleep apnea and he would like to trial the BiPAP tonight. Upon examination is resting up in bed on supplemental oxygen via nasal cannula. States he does have some shortness of breath with exertion however feels better since admission. We'll obtain a CTA of the chest to rule out PE this is discussed with the patient and he is agreeable. 10/16/17- patient is being seen examined and evaluated today on rounds. He is resting up in bed on 2 L of supplemental oxygen via nasal cannula. The patient did utilize his BiPAP overnight and did very well with it. The patient states he felt up feeling like a new man. He has been using his incentive spirometer. Feels his breathing is getting better. We will start to taper down the steroids. CTA was completed yesterday and was negative for any PE. Objective - Vital Signs Vital signs: Vital Signs Temp 97.8 F 10/16/17 08:00 Pulse 72 10/16/17 08:29 Resp 18 10/16/17 08:00 BP 143/74 10/16/17 08:00 Pulse Ox 91 L 10/16/17 08:00 Intake & Output 10/15/17 10/16/17 10/16/17 18:59 06:59 18:59 Intake Total 930 180 Output Total 575 650 Balance 355 -470 Weight 132.2 kg Intake: Oral 930 180 Output: Urine 575 650 Other: Voiding Method Toilet Toilet # Voids 1 1 - Exam GENERAL EXAM: Alert, active, comfortable in no apparent distress. HEAD: Normocephalic. EYES: Normal reaction of pupils, equal size. NOSE: Clear with pink turbinates. THROAT: No erythema or exudates. NECK: No masses, no JVD. CHEST: No chest wall deformity. LUNGS: Poor air entry noted throughout with scattered end expiratory wheezes CVS: S1 and S2 normal with no audible mumurs, regular rhythm. ABDOMEN: No hepatosplenomegaly, normal bowel sounds, no guarding or rigidity. EXTREMITIES: +1 edema noted, pedal pulses palpable. CENTRAL NERVOUS SYSTEM: No focal deficits, tone is normal in all 4 extremities. - Labs CBC & Chem 7: 10/16/17 06:12 10/16/17 06:12 Labs: Abnormal Lab Results - Last 24 Hours (Table) 10/15/17 10/15/17 10/16/17 Range/Units 11:30 16:15 05:59 WBC (3.8-10.6) k/uL RBC (4.30-5.90) m/uL Hct (39.0-53.0) % Neutrophils # (1.3-7.7) k/uL Lymphocytes # (1.0-4.8) k/uL Chloride (98-107) mmol/L Carbon Dioxide (22-30) mmol/L Glucose (74-99) mg/dL POC Glucose (mg/dL) 108 H 231 H 120 H (75-99) mg/dL 18 10/16/17 Range/Units 06:12 06:12 WBC 12.8 H (3.8-10.6) k/uL RBC 5.99 H (4.30-5.90) m/uL Hct 54.9 H (39.0-53.0) % Neutrophils # 11.3 H (1.3-7.7) k/uL Lymphocytes # 0.8 L (1.0-4.8) k/uL Chloride 94 L (98-107) mmol/L Carbon Dioxide 35 H (22-30) mmol/L Glucose 130 H (74-99) mg/dL POC Glucose (mg/dL) (75-99) mg/dL Assessment and Plan Assessment: Assessment Possible Pneumonia, vs possible hypersensitivity pneumonitis Polycythemia likely related to chronic hypoxemia Elevated troponins Acute hypoxic respiratory failure requiring supplemental oxygen Suspect underlying COPD Nicotine dependence Bilateral lower extremity edema Mediastinal and hilar adenopathy on CT of the chest Sliding-type hiatal hernia on CT Suspect [place] Plan Medications have been reviewed and will be continued as ordered. BiPAP at night and when necessary Antibiotics and steroids tapered Mucinex, and Singulair DuoNeb and budesonide nebulizer treatments Smoking cessation Initiate and encourage incentive spirometer and flutter valve Obtain sputum culture Stat Doppler of the bilateral lower extremities, negative CTA of the chest, reviewed negative for PE Labs: IgE, [place] ALLERGY panel, hypersensitivity pneumonitis, alpha-1 antitrypsin, pending Continue with pulmonary hygiene, coughing and deep breathing exercises, and supportive care. Supplemental oxygen to maintain oxygen saturations of 92% or better. Patient will need a home oxygen assessment prior to discharge Continue nebulizer treatments. GI and DVT prophylaxis. Patient would benefit from a sleep study in the outpatient setting Cardiology on consult, echocardiogram will be obtained We will continue to monitor labs/results and adjust treatment as necessary. Further recommendations pending. Thank you for this consultation we will continue to follow this patient with you I performed an examination of the patient and discussed their management with the nurse practitioner. I have reviewed the nurse practitioner's note and agree with the documented findings and plan of care. <María Borjas A - Last Filed: 10/16/17 11:40> Objective - Vital Signs Vital signs: Vital Signs Temp 97.8 F 10/16/17 08:00 Pulse 72 10/16/17 08:29 Resp 18 10/16/17 08:00 BP 143/74 10/16/17 08:00 Pulse Ox 91 L 10/16/17 08:00 Intake & Output 10/15/17 10/16/17 10/16/17 18:59 06:59 18:59 Intake Total 930 180 Output Total 575 650 Balance 355 -470 Weight 132.2 kg Intake: Oral 930 180 Output: Urine 575 650 Other: Voiding Method Toilet Toilet # Voids 1 1 - Labs CBC & Chem 7: 10/16/17 06:12 10/16/17 06:12 Labs: Abnormal Lab Results - Last 24 Hours (Table) 10/15/17 10/15/17 10/16/17 Range/Units 11:30 16:15 05:59 WBC (3.8-10.6) k/uL RBC (4.30-5.90) m/uL Hct (39.0-53.0) % Neutrophils # (1.3-7.7) k/uL Lymphocytes # (1.0-4.8) k/uL Chloride (98-107) mmol/L Carbon Dioxide (22-30) mmol/L Glucose (74-99) mg/dL POC Glucose (mg/dL) 108 H 231 H 120 H (75-99) mg/dL 10/16/17 10/16/17 Range/Units 06:12 06:12 WBC 12.8 H (3.8-10.6) k/uL RBC 5.99 H (4.30-5.90) m/uL Hct 54.9 H (39.0-53.0) % Neutrophils # 11.3 H (1.3-7.7) k/uL Lymphocytes # 0.8 L (1.0-4.8) k/uL Chloride 94 L (98-107) mmol/L Carbon Dioxide 35 H (22-30) mmol/L Glucose 130 H (74-99) mg/dL POC Glucose (mg/dL) (75-99) mg/dL Assessment and Plan Assessment: No PE. Elevated IgE. RAST and HP panel pending. Would benefit from home bipap. Will consult case management to help arrange. AM ABG and over night pulse ox study to qualify patient before discharge. Steroid taper. Outpatient PFT and PSG. ~María Borjas DO
[2017-10-16 11:54] LABS: Glucose,Whole Blood 99 mg/dL (75-99)
[2017-10-16 13:19] LABS: Alt. alternata IgE Class CLASS 0; Alternaria alternata IgE <0.35 kU/L (<0.35); Asperg. fumagatus IgE <0.35 kU/L (<0.35); Asperg. fumagatus IgE Class CLASS 0; Bermuda Grass IgE <0.35 kU/L (<0.35); Birch(Com.Silvr) IgE <0.35 kU/L (<0.35); Birch(Com.Silvr) IgE Class CLASS 0; Cat Epith & Dander IgE <0.35 kU/L (<0.35); Cat Epith & Dander IgE Class CLASS 0; Clad herbarum IgE <0.35 kU/L (<0.35); Cockroach IgE <0.35 kU/L (<0.35); Cottonwood IgE <0.35 kU/L (<0.35); Dermato. Pteronyssinus IgE <0.35 kU/L (<0.35); Dermato. farinae IgE <0.35 kU/L (<0.35); Dermato. farinae IgE Class CLASS 0; Dog Dander IgE <0.35 kU/L (<0.35); Elm IgE <0.35 kU/L (<0.35); Maple (Box Elder) IgE <0.35 kU/L (<0.35); Maple (Box Elder) IgE Class CLASS 0; Mountain Cedar IgE <0.35 kU/L (<0.35); Mountain Cedar IgE Class CLASS 0; Mouse Urine IgE Class CLASS 0; Nettle IgE <0.35 kU/L (<0.35); Nettle IgE Class CLASS 0; Oak IgE <0.35 kU/L (<0.35); Penicillium notatum IgE Class CLASS 0; Rough Marshelder IgE <0.35 kU/L (<0.35); Rough Marshelder IgE Class CLASS 0; Timothy Grass IgE <0.35 kU/L (<0.35); White Ash IgE Class CLASS 0
[2017-10-16] MEDS: methylPREDNISolone SOD SUCCI 40 MG/ML 1 ML VIAL IV SCH ×2 (16:06→23:46)
[2017-10-16] MEDS: LEVOFLOXACIN 500 MG TAB PO SCH (16:07)
[2017-10-16 16:34] LABS: Glucose,Whole Blood 116 mg/dL (75-99)
--- NOTE | 2017-10-16 17:46 | PN ---
PROGRESS NOTE SUBJECTIVE: 57-year-old white male with COPD exacerbation, CHF, possible diastolic heart failure. Echocardiogram shows ejection fraction 55-60%, LVH stays pretty much as he is breathing better with a CPAP at night and 4 L of oxygen during the day. He has got right-sided heart failure and COPD/asthma exacerbation. We will switch him to oral medicines and possible discharge home tomorrow on oral medications, 2-4 days oxygen at home. Long-term care. CPAP at night. Wean off his oxygen at home over the next few weeks after this. MMODL / IJN: [id number] /
--- NOTE | 2017-10-16 18:16 | PN ---
PROGRESS NOTE Mr. Russell is doing much better today. This gentleman's breathing is very good. He has no chest pain or shortness of breath. He may have underlying sleep apnea syndrome, and this is going to be looked into by the iv technician involved. His laboratory data reveal unremarkable troponins. He is comfortable resting, has no chest pain or shortness of breath. The troponin elevation does not represent a myocardial injury. It may be related to some oxygen demand/supply mismatch. Vitals are stable. There is no JVD. S1, S2 heard normally. Heart sounds are distant. Lungs reveal improved air entry. Abdomen and lower extremity exam unchanged. Plan is to continue current medications, and we will see him as needed from a cardiac standpoint. MMODL / IJN: [id number] /
[2017-10-16 20:31] LABS: Glucose,Whole Blood 124 mg/dL (75-99)
[2017-10-16] MEDS: MONTELUKAST 10 MG TAB PO SCH (21:09)
[2017-10-17 06:33] VITALS: BP 180/97; RESP 24; TEMP 98.5
[2017-10-17] MEDS: INSULIN ASPART 100 UNIT/ML 1 ML 10 ML VIAL SQ SCH ×2 (07:59→12:25)
[2017-10-17 08:05] LABS: Glucose,Whole Blood 103 mg/dL (75-99)
[2017-10-17] MEDS: methylPREDNISolone SOD SUCCI 40 MG/ML 1 ML VIAL IV SCH (08:23)
[2017-10-17] MEDS: guaiFENesin 600 MG TABLET.ER PO SCH (08:23)
[2017-10-17] MEDS: PANTOPRAZOLE 40 MG TABLET PO SCH (08:23)
[2017-10-17] MEDS: HEPARIN SODIUM,PORCINE 5,000 UNIT/ML 1 ML VIAL SQ SCH (08:23)
[2017-10-17] MEDS: FUROSEMIDE 10 MG/ML 4 ML VIAL IV SCH (08:23)
[2017-10-17] MEDS: IPRATROPIUM-ALBUTEROL 3 ML NEB INHALATION SCH ×2 (08:30→12:41)
[2017-10-17] MEDS: BUDESONIDE 0.5 MG/2 ML NEBU INHALATION SCH (08:30)
[2017-10-17 08:56] LABS: Basophils # (A) 0.1 k/uL (0-0.2); Basophils % (A) 1 %; Eosinophils % (A) 0 %; Hypochromasia Moderate; Lymphocytes # (A) 1.4 k/uL (1.0-4.8); Lymphocytes % (A) 10 %; MCHC 31.4 g/dL (31.0-37.0); MCV 92.3 fL (80.0-100.0); Mean Platelet Volume 7.2; Monocytes # (A) 0.8 k/uL (0-1.0); Monocytes % (A) 6 %; Neutrophils # (A) 10.9 k/uL (1.3-7.7); Neutrophils % (A) 82 %; Platelet Count 264 k/uL (150-450); RBC 6.22 m/uL (4.30-5.90); RDW 14.3 % (11.5-15.5); WBC 13.2 k/uL (3.8-10.6)
[2017-10-17 08:59] LABS: HCT 57.4 % (39.0-53.0)
[2017-10-17 09:13] LABS: ALT 33 U/L (21-72); AST 21 U/L (17-59); Albumin 3.9 g/dL (3.5-5.0); Alkaline Phosphatase 44 U/L (38-126); Blood Urea Nitrogen 17 mg/dL (9-20); Calcium 9.3 mg/dL (8.4-10.2); Chloride 90 mmol/L (98-107); Glucose 121 mg/dL (74-99); Potassium 4.7 mmol/L (3.5-5.1); Sodium 138 mmol/L (137-145); Total Bilirubin 0.7 mg/dL (0.2-1.3); Total Protein 6.9 g/dL (6.3-8.2)
[2017-10-17 09:20] LABS: Anion Gap 7 mmol/L
[2017-10-17 09:36] LABS: Carbon Dioxide 41 mmol/L (22-30)
--- NOTE | 2017-10-17 11:13 | P.PN ---
Subjective Progress Note Date: 10/17/17 HPI: This is a 57-year-old male patient being seen examined and evaluated for consultation. This patient is well-known to to our services. This patient comes in after direction from Dr. Tejada's office for having some significant hypoxia satting 72% on room air. He also has been complaining of a congested cough with yellow sputum. He is a half a pack to 1 pack per day smoker for approximately 25-30 years. Patient said on Saturday he also noticed some bilateral lower extremity swelling however denies any pain. Upon examination the patient's resting up in bed on 4 L of supplemental oxygen via nasal cannula. He is noted to have an elevated d-dimer of 0.61 and an elevated troponin of 0.042. BNP is 925. WBC is 8.7 and hemoglobin of 18. Patient is currently being transferred to the selective care unit. He did undergo a CT of the chest which did reveal scattered areas of infiltrates which may reflect pneumonia, mediastinal and hilar adenopathy which may be reactive nature, sliding type hiatal hernia and a nonspecific adrenal granular thickening on the left. Bilateral lower extremity Doppler has been ordered. A stat CMP has been ordered if the patient's kidney function is in normal range we will order a CTA at that time. Interval history 10/15/17- patient is being seen examined and evaluated today on rounds. Patient did undergo bilateral lower extremity Doppler yesterday which was negative. Overnight the patient did have some episodes of hypoxia and the nurse noted that the patient was blue. He was awoken and ABGs were drawn stat his pH was 7.3 pCO2 of 71, O2 55 and HCO3 was 35. BiPAP was ordered and the patient refused at that time and wanted to just use nasal cannula. His oxygen saturations did come up nicely while awake on supplemental oxygen. This was discussed with the patient that he could possibly be doing this chronically at home. And the importance of his sleep study is reiterated. Patient states he understands the risk of untreated severe sleep apnea and he would like to trial the BiPAP tonight. Upon examination is resting up in bed on supplemental oxygen via nasal cannula. States he does have some shortness of breath with exertion however feels better since admission. We'll obtain a CTA of the chest to rule out PE this is discussed with the patient and he is agreeable. 10/16/17- patient is being seen examined and evaluated today on rounds. He is resting up in bed on 2 L of supplemental oxygen via nasal cannula. The patient did utilize his BiPAP overnight and did very well with it. The patient states he felt up feeling like a new man. He has been using his incentive spirometer. Feels his breathing is getting better. We will start to taper down the steroids. CTA was completed yesterday and was negative for any PE. 10/17/17- patient is being seen examined and evaluated today on rounds and he is resting up in bed on supplemental oxygen via nasal cannula. States he has been told he is being discharged today. He did have a home oxygen evaluation and will qualify for home oxygen at 2 L. He did utilize the BiPAP overnight and states it works very well for him. He is being set up for possible home BiPAP. Outpatient sleep study to be completed Objective - Vital Signs Vital signs: Vital Signs Temp 98.5 F 10/17/17 06:32 Pulse 92 10/17/17 09:44 Resp 24 10/17/17 06:32 BP 180/97 10/17/17 06:32 Pulse Ox 94 L 10/17/17 09:44 Intake & Output 10/16/17 10/17/17 10/17/17 18:59 06:59 18:59 Intake Total 600 240 Output Total 650 Balance -50 240 Weight 130.5 kg Intake: Oral 600 240 Output: Urine 650 Other: Voiding Method Toilet - Exam GENERAL EXAM: Alert, active, comfortable in no apparent distress. HEAD: Normocephalic. EYES: Normal reaction of pupils, equal size. NOSE: Clear with pink turbinates. THROAT: No erythema or exudates. NECK: No masses, no JVD. CHEST: No chest wall deformity. LUNGS: Poor air entry noted throughout with scattered end expiratory wheezes, improved CVS: S1 and S2 normal with no audible mumurs, regular rhythm. ABDOMEN: No hepatosplenomegaly, normal bowel sounds, no guarding or rigidity. EXTREMITIES: +1 edema noted, pedal pulses palpable. CENTRAL NERVOUS SYSTEM: No focal deficits, tone is normal in all 4 extremities. - Labs CBC & Chem 7: 10/17/17 08:24 10/17/17 08:24 Labs: Abnormal Lab Results - Last 24 Hours (Table) 10/16/17 10/16/17 10/17/17 Range/Units 16:32 20:30 07:21 WBC (3.8-10.6) k/uL RBC (4.30-5.90) m/uL Hgb (13.0-17.5) gm/dL Hct (39.0-53.0) % Neutrophils # (1.3-7.7) k/uL Chloride (98-107) mmol/L Carbon Dioxide (22-30) mmol/L Glucose (74-99) mg/dL POC Glucose (mg/dL) 116 H 124 H 103 H (75-99) mg/dL 18 10/17/17 Range/Units 08:24 08:24 WBC 13.2 H (3.8-10.6) k/uL RBC 6.22 H (4.30-5.90) m/uL Hgb 18.0 H (13.0-17.5) gm/dL Hct 57.4 H (39.0-53.0) % Neutrophils # 10.9 H (1.3-7.7) k/uL Chloride 90 L (98-107) mmol/L Carbon Dioxide 41 H* (22-30) mmol/L Glucose 121 H (74-99) mg/dL POC Glucose (mg/dL) (75-99) mg/dL Microbiology - Last 24 Hours (Table) 10/14/17 20:41 Gram Stain - Final Sputum Sputum Culture - Final Assessment and Plan Assessment: Assessment Possible Pneumonia, vs possible hypersensitivity pneumonitis Polycythemia likely related to chronic hypoxemia Elevated troponins Acute hypoxic respiratory failure requiring supplemental oxygen Suspect underlying COPD Nicotine dependence Bilateral lower extremity edema Mediastinal and hilar adenopathy on CT of the chest Sliding-type hiatal hernia on CT Suspect [place] Plan Patient cleared for discharge from pulmonary standpoint Medications have been reviewed and will be continued as ordered. BiPAP at night and when necessary Antibiotics and steroids tapered Mucinex, and Singulair DuoNeb and budesonide nebulizer treatments Smoking cessation Initiate and encourage incentive spirometer and flutter valve sputum culture, Stat Doppler of the bilateral lower extremities, negative CTA of the chest, reviewed negative for PE Labs: IgE, [place] ALLERGY panel, hypersensitivity pneumonitis, alpha-1 antitrypsin, pending Continue with pulmonary hygiene, coughing and deep breathing exercises, and supportive care. Supplemental oxygen to maintain oxygen saturations of 92% or better. Patient will need a home oxygen assessment prior to discharge Continue nebulizer treatments. GI and DVT prophylaxis. Patient would benefit from a sleep study in the outpatient setting Cardiology on consult, echocardiogram will be obtained We will continue to monitor labs/results and adjust treatment as necessary. Further recommendations pending. Thank you for this consultation we will continue to follow this patient with you I performed an examination of the patient and discussed their management with the nurse practitioner. I have reviewed the nurse practitioner's note and agree with the documented findings and plan of care.
[2017-10-17 12:22] LABS: Glucose,Whole Blood 105 mg/dL (75-99)
[2017-10-17 13:06] VITALS: PULSE 96
[2017-10-17 14:00] LABS: Alpha 1 Anti-Trypsin 145 mg/dL (90 - 200)
== END 2017-10-17 15:08 | disposition home or self-care (01) | DRG 193 ==
LOC: 5MS5E 11:05 → 6SEL 17:08 → 4MS4W 10-16 23:21
PROVIDERS: ADMIT Family Medicine; ATTEND Family Medicine
DX: J18.9 Pneumonia, unspecified organism (principal); I50.31 Acute diastolic (congestive) heart failure; J96.01 Acute respiratory failure with hypoxia; J96.02 Acute respiratory failure with hypercapnia; J44.0 Chronic obstructive pulmonary disease with (acute) lower respiratory infection; J44.1 Chronic obstructive pulmonary disease with (acute) exacerbation; J45.901 Unspecified asthma with (acute) exacerbation; D75.1 Secondary polycythemia; F17.210 Nicotine dependence, cigarettes, uncomplicated; K44.9 Diaphragmatic hernia without obstruction or gangrene; R79.1 Abnormal coagulation profile; Z79.899 Other long term (current) drug therapy; Z82.49 Family history of ischemic heart disease and other diseases of the circulatory system; Z82.5 Family history of asthma and other chronic lower respiratory diseases; Z99.81 Dependence on supplemental oxygen; R77.8 Other specified abnormalities of plasma proteins; G47.33 Obstructive sleep apnea (adult) (pediatric); R59.0 Localized enlarged lymph nodes
CPT/HCPCS: 36600; 71260; 71275; 80053; 80061; 82103; 82104; 82785; 82805; 83036; 83880; 84443; 84484; 85025; 85379; 86001; 86003; 86606; 86609; 87070; 87205; 93306; 93970; 94640; 94660; 94667; 94760; 94762

== ENCOUNTER 2020-08-17 17:54 | Inpatient (IN) | payer MEDICARE, OTHER ==
[2020-08-17 18:30] LABS: Basophils # (A) 0.1 k/uL (0-0.2); Basophils % (A) 1 %; Eosinophils # (A) 0.1 k/uL (0-0.7); Eosinophils % (A) 1 %; HCT 42.3 % (39.0-53.0); HGB 13.6 gm/dL (13.0-17.5); Hypochromasia Moderate; Lymphocytes % (A) 11 %; MCH 30.1 pg (25.0-35.0); MCHC 32.2 g/dL (31.0-37.0); MCV 93.5 fL (80.0-100.0); Mean Platelet Volume 7.4; Monocytes # (A) 0.7 k/uL (0-1.0); Monocytes % (A) 7 %; Neutrophils # (A) 7.3 k/uL (1.3-7.7); Neutrophils % (A) 79 %; Platelet Count 342 k/uL (150-450); RBC 4.53 m/uL (4.30-5.90); RDW 13.2 % (11.5-15.5); WBC 9.2 k/uL (3.8-10.6)
[2020-08-17 18:40] LABS: ALT 17 U/L (4-49); AST 24 U/L (17-59); African American GFR (CKD) >90 (>60 ml/min/1.73 sqM); Albumin 3.9 g/dL (3.5-5.0); Alkaline Phosphatase 59 U/L (38-126); Blood Urea Nitrogen 11 mg/dL (9-20); Calcium 8.9 mg/dL (8.4-10.2); Chloride 93 mmol/L (98-107); Glucose 128 mg/dL (74-99); Magnesium 2.2 mg/dL (1.6-2.3); Non-African American GFR(CKD) >90 (>60 ml/min/1.73 sqM); Potassium 5.4 mmol/L (3.5-5.1); Sodium 140 mmol/L (137-145); Total Bilirubin 0.4 mg/dL (0.2-1.3); Total Protein 7.2 g/dL (6.3-8.2)
[2020-08-17 18:46] LABS: Anion Gap 3 mmol/L
[2020-08-17 18:48] LABS: INR 0.9 (<1.2); Partial Thromboplastin Time 23.4 sec (22.0-30.0); Prothrombin Time 9.7 sec (9.0-12.0)
[2020-08-17 18:57] LABS: Carbon Dioxide 44 mmol/L (22-30)
[2020-08-17 19:10] LABS: D-Dimer 1.27 mg/L FEU (<0.60)
--- NOTE | 2020-08-17 19:46 | XR ---
EXAMINATION TYPE: XR chest 2V DATE OF EXAM: 08/17/2020 COMPARISON: 04/28/2020. HISTORY: Shortness of breath. TECHNIQUE: Frontal and lateral views of the chest are obtained. FINDINGS: The lung bases are partially obscured, limiting evaluation. There is moderate interstitial edema with associated hazy and streaky opacities, greater in the left lower. Small posterior pleural effusions. No pneumothorax seen. Cardiomegaly. The osseous structures are intact. IMPRESSION: CHF with superimposed infiltrates not excluded.
[2020-08-17] MEDS ORDERED: INSULIN REGULAR 100 UNIT/ML VIAL IV ONE (20:26)
[2020-08-17] MEDS ORDERED: ALBUTEROL NEBULIZED 2.5 MG/3 ML INHALATION STA (20:26)
[2020-08-17] MEDS ORDERED: DEXTROSE 50% SYRINGE 50 ML IVP STA (20:26)
--- NOTE | 2020-08-17 20:46 | ED ---
SOB HPI - General Chief Complaint: Shortness of Breath Stated Complaint: TRAVIS Time Seen by Provider: 08/17/20 18:00 Source: EMS Mode of arrival: EMS Limitations: no limitations - History of Present Illness Initial Comments: DD 10-year-old male past medical history of COPD presents emergency Department with reported worsening hypoxia. Patient is normally on 4 L of oxygen at home. Patient's family called Dr. Mukherjee as he was having increasing shortness of breath. No report of any fevers or chills. No productive cough. No cold exposure. Patient denies any chest pain. No previous history of cardiac disease. Denies any lower extremity swelling. Patient does have a nebulizer at home however did not use it today. Patient denies any nausea or vomiting. No other alleviating, precipitating or modifying factors - Related Data Home Medications Medication Instructions Recorded Confirmed Gabapentin [Neurontin] 300 mg PO DAILY 10/14/17 08/17/20 Hydrocodone/Acetaminophen [[place] 1 tab PO TID PRN 10/14/17 08/17/20 10-325] Diclofenac Sodium Gel [Voltaren 1 gm TOPICAL QID PRN 08/17/20 08/17/20 Gel] Otc Water Pill (Unknown) 1 dose PO DAILY 08/17/20 08/17/20 Sulfamethoxazole/Trimethoprim 1 tab PO BID 08/17/20 08/17/20 [Bactrim DS 800-160 mg] Tiotropium 2.5 Mcg/Puff [Spiriva 2 puff INHALATION RT-DAILY 08/17/20 08/17/20 Respimat 2.5 Mcg] Allergies Allergy/AdvReac Type Severity Reaction Status Date / Time No Known Allergies Allergy Verified 08/17/20 21:02 Review of Systems ROS Statement: Those systems with pertinent positive or pertinent negative responses have been documented in the HPI. ROS Other: All systems not noted in ROS Statement are negative. Past Medical History Past Medical History: COPD, Pneumonia Additional Past Medical History / Comment(s): Pt states prior to today, he was never diagnosed with copd, pneumonia 20 yrs ago, chronic back pain, R arm numbness/tingling and also involves R shoulder. History of Any Multi-Drug Resistant Organisms: None Reported Additional Past Surgical History / Comment(s): Colonoscopies with benign polypectomy, back injections. Past Anesthesia/Blood Transfusion Reactions: No Reported Reaction Past Psychological History: No Psychological Hx Reported Smoking Status: Former smoker Past Alcohol Use History: None Reported Past Drug Use History: None Reported - Past Family History Father Family Medical History: COPD Additional Family Medical History / Comment(s): Father of copd at the age of 69yrs. He was a smoker. Mother Family Medical History: COPD, Hypertension Additional Family Medical History / Comment(s): Mother at the age of 78yrs. General Exam Limitations: no limitations General appearance: alert, obese Head exam: Present: atraumatic, normocephalic, normal inspection Eye exam: Present: normal appearance, PERRL, EOMI. Absent: scleral icterus, conjunctival injection, periorbital swelling ENT exam: Present: normal exam, mucous membranes moist Neck exam: Present: normal inspection. Absent: tenderness, meningismus, lymphadenopathy Respiratory exam: Present: wheezes, decreased breath sounds, other (converstional dyspnea). Absent: respiratory distress, rales, rhonchi, stridor Cardiovascular Exam: Present: regular rate, normal rhythm, normal heart sounds. Absent: systolic murmur, diastolic murmur, rubs, gallop, clicks GI/Abdominal exam: Present: soft, normal bowel sounds. Absent: distended, tenderness, guarding, rebound, rigid Extremities exam: Present: normal inspection, full ROM, normal capillary refill. Absent: tenderness, pedal edema, joint swelling, calf tenderness Back exam: Present: normal inspection Neurological exam: Present: alert, oriented X3, CN II-XII intact Psychiatric exam: Present: normal affect, normal mood Skin exam: Present: warm, dry, intact, normal color. Absent: rash Course Vital Signs 08/17/20 08/17/20 08/17/20 18:02 19:09 21:10 Temperature 98.0 F Pulse Rate 75 79 85 Respiratory 19 18 Rate Blood Pressure 119/61 135/55 O2 Sat by Pulse 89 L 91 L Oximetry 08/17/20 08/17/20 21:35 22:20 Temperature Pulse Rate 88 80 Respiratory 18 Rate Blood Pressure 134/82 O2 Sat by Pulse 88 L Oximetry Medical Decision Making - Medical Decision Making Upon arrival patient is placed in a trauma bay 3. Patient is saturating 89% on 6 L. EMS did find the patient has house saturating 69%. Patient states that symptoms are chronic for him however the patient is notably hypoxic with increased work of breathing. IV is established. Laboratory studies were conducted, 12-lead EKG was performed in the patient for chest x-ray. Laboratory studies demonstrated potassium of 5.4. He was given 10 units of insulin, an amp of dextrose. potassium will be repeated at midnight. D-dimer is 1.27. Covid is not detected. CT is performed which demonstrates possible filling defect in the left upper lobe pulmonary artery for which acute embolus cannot be excluded however no central PE. Chronic appearing diffuse ground glass opacities with mild patchy areas. Pattern suggestive of underlying COPD. These results are discussed with the patient. He is given magnesium and Solu-Medrol. Because of the patient's significant hypoxia did recommend hospital admission for which the patient did agree to. Spoke with Dr. Mukherjee who agreed to admit the patient. Patient awaiting a bed on the floor - Lab Data Result diagrams: 08/18/20 04:30 08/18/20 20:09 Lab Results 08/17/20 08/17/20 08/17/20 Range/Units 18:18 18:18 18:18 WBC 9.2 (3.8-10.6) k/uL RBC 4.53 (4.30-5.90) m/uL Hgb 13.6 (13.0-17.5) gm/dL Hct 42.3 (39.0-53.0) % MCV 93.5 (80.0-100.0) fL MCH 30.1 (25.0-35.0) pg MCHC 32.2 (31.0-37.0) g/dL RDW 13.2 (11.5-15.5) % Plt Count 342 (150-450) k/uL MPV 7.4 Neutrophils % 79 % Lymphocytes % 11 % Monocytes % 7 % Eosinophils % 1 % Basophils % 1 % Neutrophils # 7.3 (1.3-7.7) k/uL Lymphocytes # 1.0 (1.0-4.8) k/uL Monocytes # 0.7 (0-1.0) k/uL Eosinophils # 0.1 (0-0.7) k/uL Basophils # 0.1 (0-0.2) k/uL Hypochromasia Moderate PT 9.7 (9.0-12.0) sec INR 0.9 (<1.2) APTT 23.4 (22.0-30.0) sec D-Dimer 1.27 H (<0.60) mg/L FEU Sodium 140 (137-145) mmol/L Potassium 5.4 H (3.5-5.1) mmol/L Chloride 93 L (98-107) mmol/L Carbon Dioxide 44 H* (22-30) mmol/L Anion Gap 3 mmol/L BUN 11 (9-20) mg/dL Creatinine 0.58 L (0.66-1.25) mg/dL Est GFR (CKD-EPI)AfAm >90 (>60 ml/min/1.73 sqM) Est GFR (CKD-EPI)NonAf >90 (>60 ml/min/1.73 sqM) Glucose 128 H (74-99) mg/dL Plasma Lactic Acid Km (0.7-2.0) mmol/L Calcium 8.9 (8.4-10.2) mg/dL Magnesium 2.2 (1.6-2.3) mg/dL Total Bilirubin 0.4 (0.2-1.3) mg/dL AST 24 (17-59) U/L ALT 17 (4-49) U/L Alkaline Phosphatase 59 (38-126) U/L Troponin I (0.000-0.034) ng/mL NT-Pro-B Natriuret Pep pg/mL Total Protein 7.2 (6.3-8.2) g/dL Albumin 3.9 (3.5-5.0) g/dL Coronavirus (PCR) (Not Detectd) 08/17/20 08/17/20 08/17/20 Range/Units 18:18 18:18 18:18 WBC (3.8-10.6) k/uL RBC (4.30-5.90) m/uL Hgb (13.0-17.5) gm/dL Hct (39.0-53.0) % MCV (80.0-100.0) fL MCH (25.0-35.0) pg MCHC (31.0-37.0) g/dL RDW (11.5-15.5) % Plt Count (150-450) k/uL MPV Neutrophils % % Lymphocytes % % Monocytes % % Eosinophils % % Basophils % % Neutrophils # (1.3-7.7) k/uL Lymphocytes # (1.0-4.8) k/uL Monocytes # (0-1.0) k/uL Eosinophils # (0-0.7) k/uL Basophils # (0-0.2) k/uL Hypochromasia PT (9.0-12.0) sec INR (<1.2) APTT (22.0-30.0) sec D-Dimer (<0.60) mg/L FEU Sodium (137-145) mmol/L Potassium (3.5-5.1) mmol/L Chloride (98-107) mmol/L Carbon Dioxide (22-30) mmol/L Anion Gap mmol/L BUN (9-20) mg/dL Creatinine (0.66-1.25) mg/dL Est GFR (CKD-EPI)AfAm (>60 ml/min/1.73 sqM) Est GFR (CKD-EPI)NonAf (>60 ml/min/1.73 sqM) Glucose (74-99) mg/dL Plasma Lactic Acid Km 1.7 (0.7-2.0) mmol/L Calcium (8.4-10.2) mg/dL Magnesium (1.6-2.3) mg/dL Total Bilirubin (0.2-1.3) mg/dL AST (17-59) U/L ALT (4-49) U/L Alkaline Phosphatase (38-126) U/L Troponin I 0.027 (0.000-0.034) ng/mL NT-Pro-B Natriuret Pep 123 pg/mL Total Protein (6.3-8.2) g/dL Albumin (3.5-5.0) g/dL Coronavirus (PCR) (Not Detectd) 08/17/20 Range/Units 18:18 WBC (3.8-10.6) k/uL RBC (4.30-5.90) m/uL Hgb (13.0-17.5) gm/dL Hct (39.0-53.0) % MCV (80.0-100.0) fL MCH (25.0-35.0) pg MCHC (31.0-37.0) g/dL RDW (11.5-15.5) % Plt Count (150-450) k/uL MPV Neutrophils % % Lymphocytes % % Monocytes % % Eosinophils % % Basophils % % Neutrophils # (1.3-7.7) k/uL Lymphocytes # (1.0-4.8) k/uL Monocytes # (0-1.0) k/uL Eosinophils # (0-0.7) k/uL Basophils # (0-0.2) k/uL Hypochromasia PT (9.0-12.0) sec INR (<1.2) APTT (22.0-30.0) sec D-Dimer (<0.60) mg/L FEU Sodium (137-145) mmol/L Potassium (3.5-5.1) mmol/L Chloride (98-107) mmol/L Carbon Dioxide (22-30) mmol/L Anion Gap mmol/L BUN (9-20) mg/dL Creatinine (0.66-1.25) mg/dL Est GFR (CKD-EPI)AfAm (>60 ml/min/1.73 sqM) Est GFR (CKD-EPI)NonAf (>60 ml/min/1.73 sqM) Glucose (74-99) mg/dL Plasma Lactic Acid Km (0.7-2.0) mmol/L Calcium (8.4-10.2) mg/dL Magnesium (1.6-2.3) mg/dL Total Bilirubin (0.2-1.3) mg/dL AST (17-59) U/L ALT (4-49) U/L Alkaline Phosphatase (38-126) U/L Troponin I (0.000-0.034) ng/mL NT-Pro-B Natriuret Pep pg/mL Total Protein (6.3-8.2) g/dL Albumin (3.5-5.0) g/dL Coronavirus (PCR) Not Detected (Not Detectd) - EKG Data EKG Comments: EKG demonstrates a sinus rhythm with a ventricular rate of 72.. 164. QRS 90. QTC of 400. No acute ST segment elevations or depressions Disposition Clinical Impression: COPD (chronic obstructive pulmonary disease), Hypoxia Disposition: ADMITTED IP TO THIS HOSP Condition: Stable Is patient prescribed a controlled substance at d/c from ED?: No Decision to Admit Reason: Admit from EC Decision Date: 08/17/20 Decision Time: 21:03
--- NOTE | 2020-08-17 20:55 | CT ---
EXAMINATION TYPE: CT chest angio for PE DATE OF EXAM: 08/17/2020 COMPARISON: CT 10/15/2017. Same-day radiographs. HISTORY: Shortness of breath x's years CT DLP: 1221.8 mGycm Automated exposure control for dose reduction was used. CONTRAST: CT Chest for pulmonary embolism performed with with IV Contrast, patient injected with 100 mL of Isov ue 370. FINDINGS: LUNGS: There is redemonstration of bilateral diffuse groundglass opacities with mild patchy areas in the upper lobes, similar to prior CT. There are small bilateral pleural effusions with adjacent small consolidations. No pneumothorax. The airways are patent. There is background of moderate centrilobul ar emphysema. MEDIASTINUM: There is suboptimal evaluation of the pulmonary artery subsegmental branches. There is q uestionable filling defects in the left upper lobe pulmonary artery subsegmental branches. No signifi cant filling defects elsewhere. There are scattered mildly enlarged mediastinal and hilar lymph nodes , may be reactive. No pericardial effusion is seen. OTHER: Stable left adrenal gland thickening. No acute osseous abnormality. IMPRESSION: Questionable filling defects in the left upper lobe pulmonary artery subsegmental branches, for which acute embolus cannot be excluded. However no evidence of central PE. Chronic appearing diffuse ground glass opacities with mild patchy areas, similar to 2018 CT. Pattern is suggestive of underlying COPD with acute exacerbation in the appropriate clinical setting. However superimposed infiltrate cannot be entirely excluded. Small pleural effusion with adjacent atelectasis. Findings were discussed with caring physician by me at the time of dictation.
[2020-08-17] MEDS ORDERED: IPRATROPIUM-ALBUTEROL 3 ML NEB INHALATION STA (21:00)
[2020-08-17] MEDS ORDERED: methylPREDNISolone SOD SUCCI 125 MG/2 ML VIAL IV STA (21:00)
[2020-08-17] MEDS ORDERED: MAGNESIUM SULFATE-D5W PMX 1 GM in DEXTROSE/WATER 1 100ML.BAG IVPB ONE (21:00)
[2020-08-17] MEDS ORDERED: NALOXONE 0.4 MG/ML 1 ML VIAL IV PRN (21:04)
[2020-08-17] MEDS ORDERED: IPRATROPIUM-ALBUTEROL 3 ML NEB INHALATION PRN (22:19)
--- NOTE | 2020-08-17 22:19 | HP ---
HISTORY AND PHYSICAL This is a 60-year-old white male who normally takes 3 L of oxygen at home. He came into the emergency room after being sent by myself due to altered mental status and confusion requiring high amounts of oxygen at home up to 6 L, saturating in the 70s to 80s, and he was acting weird with delirium, at which time we sent him to the emergency room. HOME MEDICATIONS: Home medications include [place] 10 [facility]d. [facility], Neurontin 300 b.i.d. from the [facility], Singulair 10 mg daily, Protonix 40 mg daily, Mucinex b.i.d., DuoNeb updrafts t.i.d., Pulmicort b.i.d. REVIEW OF SYSTEMS: Fourteen-point review of systems otherwise has been negative. PAST MEDICAL HISTORY: Pneumonia, COPD. He wears 3 L of oxygen at home all the time. He has morbid obesity, possibly right-sided heart failure. Former smoker. FAMILY HISTORY: Father with COPD in his 60s . Mother with COPD, hypertension, at 78. Temperature 98, pulse 75 to 79, respiratory rate 18 to 19, blood pressures 119 to 135 over 50s to 60s, O2 saturation 89% to 91% on 6 L. He has a CO2 of 44. Sodium 140, potassium 5.4, BUN 11, creatinine 0.38. EKG shows sinus rhythm. ASSESSMENT: 1. Chronic obstructive pulmonary disease exacerbation. 2. Hypoxemia. 3. Possible subsegmental pulmonary embolism. Wait for pulmonary consult. Put him on some subcutaneous heparin, steroids, updrafts. Please see further orders. Prognosis guarded. Unsure why he has required more oxygen except for his COPD exacerbation and possible subsegmental PE. Wait for Pulmonary. MMODL / IJN: [id number] /
[2020-08-17] MEDS: methylPREDNISolone SOD SUCCI 40 MG/ML 1 ML VIAL IV SCH (23:49)
[2020-08-17] MEDS: HEPARIN SODIUM,PORCINE/PF 5,000 UNIT/0.5 ML SYRINGE SQ SCH (23:49)
[2020-08-17] MEDS: GABAPENTIN 300 MG CAP PO SCH (23:50)
[2020-08-18] MEDS ORDERED: IPRATROPIUM-ALBUTEROL 3 ML NEB INHALATION SCH
[2020-08-18 05:31] LABS: Basophils % (A) 0 %; Eosinophils # (A) 0.1 k/uL (0-0.7); Eosinophils % (A) 1 %; HGB 13.9 gm/dL (13.0-17.5); Hypochromasia Marked; Lymphocytes # (A) 0.7 k/uL (1.0-4.8); Lymphocytes % (A) 7 %; MCH 29.8 pg (25.0-35.0); MCHC 31.6 g/dL (31.0-37.0); MCV 94.3 fL (80.0-100.0); Mean Platelet Volume 7.8; Monocytes # (A) 0.1 k/uL (0-1.0); Monocytes % (A) 1 %; Neutrophils % (A) 90 %; Platelet Count 319 k/uL (150-450); RBC 4.66 m/uL (4.30-5.90); RDW 13.2 % (11.5-15.5); WBC 8.9 k/uL (3.8-10.6)
[2020-08-18 05:43] LABS: African American GFR (CKD) >90 (>60 ml/min/1.73 sqM); Anion Gap 6 mmol/L; Blood Urea Nitrogen 11 mg/dL (9-20); Carbon Dioxide 39 mmol/L (22-30); Chloride 94 mmol/L (98-107); Glucose 186 mg/dL (74-99); Non-African American GFR(CKD) >90 (>60 ml/min/1.73 sqM); Potassium 5.7 mmol/L (3.5-5.1); Sodium 139 mmol/L (137-145)
[2020-08-18 07:04] LABS: Glucose,Whole Blood 145 mg/dL (75-99)
[2020-08-18] MEDS: IPRATROPIUM-ALBUTEROL 3 ML NEB INHALATION SCH ×4 (07:17→18:54)
[2020-08-18] MEDS: methylPREDNISolone SOD SUCCI 40 MG/ML 1 ML VIAL IV SCH ×3 (07:24→23:07)
[2020-08-18] MEDS: INSULIN ASPART (NovoLOG) 100 UNIT/ML VIAL SQ SCH ×4 (07:24→21:06)
[2020-08-18] MEDS: HEPARIN SODIUM,PORCINE/PF 5,000 UNIT/0.5 ML SYRINGE SQ SCH ×3 (07:24→23:08)
[2020-08-18] MEDS: GABAPENTIN 300 MG CAP PO SCH (07:25)
--- NOTE | 2020-08-18 11:01 | ECHOF ---
Referral Reason:dyspnea MEASUREMENTS -------- HEIGHT: 175.3 cm WEIGHT: 145.1 kg BP: 164/69 IVSd: 1.7 cm (0.6 - 1.1) LVIDd: 5.6 cm (3.9 - 5.3) LVPWd: 1.8 cm (0.6 - 1.1) EDV(Teich): 154 ml IVSs: 2.1 cm LVIDs: 3.6 cm LVPWs: 2.1 cm %IVS Thck: 23 % ESV(Teich): 55 ml EF(Teich): 64 % %FS: 35 % SV(Teich): 98 ml RVIDd: 3.7 cm (< 3.3) LALs A4C: 7.1 cm LAAs A4C: 30.3 cm LAESV A-L A4C: 110 ml LAESV MOD A4C: 104 ml Ao Diam: 3.9 cm (2.0 - 3.7) LA Diam: 4.7 cm (2.7 - 3.8) AV Cusp: 2.6 cm (1.5 - 2.6) MV E [place]: 1.09 m/s MV DecT: 207 ms MV Dec [place]: 5.3 m/s MV A [place]: 0.97 m/s MV E/A Ratio: 1.12 MV PHT: 60 ms LVOT Vmax: 0.63 m/s LVOT maxP.59 mmHg AV Vmax: 1.50 m/s AV maxP.05 mmHg TR Vmax: 2.76 m/s TR maxP.57 mmHg RAP: 5.00 mmHg RVSP: 35.57 mmHg FINDINGS -------- Sinus rhythm. This was a technically difficult study with suboptimal views. The left ventricular size is normal. There is moderate concentric left ventricular hypertrophy. O verall left ventricular systolic function is normal with, an EF between 55 - 60 %. The right ventricle is mildly enlarged. The left atrium is moderately dilated. The right atrium was not well visualized. 5.0mg of Lumason was utilized for enhancement of images Interatrial and interventricular septum intact. The aortic valve was not well visualized. There is no evidence of aortic regurgitation. There is no evidence of aortic stenosis. Mild mitral regurgitation is present. Mild tricuspid regurgitation present. There is mild pulmonary hypertension. The right ventricular systolic pressure, as measured by Doppler, is 35.57mmHg. The pulmonic valve was not well visualized. There is no pulmonic regurgitation present. The aortic root size is normal. IVC Not well visulized. There is no pericardial effusion. CONCLUSIONS -------- 1. The left ventricular size is normal. 2. There is moderate concentric left ventricular hypertrophy. 3. Overall left ventricular systolic function is normal with, an EF between 55 - 60 %. 4. The right ventricle is mildly enlarged. 5. The left atrium is moderately dilated. 6. Mild mitral regurgitation is present. 7. Mild tricuspid regurgitation present. 8. There is mild pulmonary hypertension. 9. The right ventricular systolic pressure, as measured by Doppler, is 35.57mmHg. CREDIT ADJUSTER: Abby Hong RDCS
[2020-08-18 11:40] LABS: Glucose,Whole Blood 131 mg/dL (75-99)
[2020-08-18] MEDS ORDERED: SODIUM POLYSTYRENE SULFONATE 15 GM/60 ML BOTTLE PO STA (16:23)
--- NOTE | 2020-08-18 16:25 | P.CNPUL ---
History of Present Illness Consult date: 08/18/20 Requesting physician: Maria Luisa Tai Reason for consult: dyspnea, hypoxemia Chief complaint: Acute on chronic hypoxia, shortness of breath History of present illness: This is 60-year-old white male patient was known to our practice from previous admissions related to complications secondary to COPD, underlying obstructive sleep apnea and chronic diastolic congestive heart failure, patient follows with Dr. Goff in the office. He normally wears 4 L of oxygen on a regular basis, he does have underlying history of obstructive sleep apnea, he recently received a new device 2 months ago however it is still sitting on his stable and he has not worn it. He states he is claustrophobic, he is trying to gradually start wearing it for several hours at a time. Denies any fever or chills, he was more confused at home, his having a mild cough, and at times producing some yellow phlegm. His chest x-ray showed bilateral infiltrates, his d-dimer was 1.27, and CTA chest was completed showing to multiple filling defects in the left upper lobe pulmonary artery subsegmental branches and acute embolus could not be entirely excluded. There were diffuse bilateral groundglass opacities with mild patchy areas in the upper lobes similar to the prior CT, and small bilateral pleural effusions with adjacent small consolidations. Patient has history of chronic diastolic CHF, however he denies any worsening swelling in his lower extremities, he takes Lasix on a regular basis 40 mg daily, however his states his abdomen seems to be more distended. His labs have been reviewed, CBC on admission was within normal limits, d-dimer was 1.7 as mentioned above, sodium is 140, potassium is 5.4, chloride was 93, CO2 is 44, B1 is 11 creatinine 0.58, LFTs were within normal limits, BNP was 123, troponin was 0.027. COVID 19 was negative. Patient was started on IV steroids, breathing treatments. Echocardiogram shows left ventricular systolic function with an EF of 55-60%, mildly enlarged right ventricle, mild MR, mild TR, mild pulmonary hypertension, and PA systolic of 35.5 mmHg. At the time of my evaluation he is up in the chair, is currently on 10 L of oxygen pulse ox is 90%, he seems to be comfortable, lung sounds reveal diffuse crackles bilaterally, mild swelling in his lower extremities. Review of Systems All systems: negative Constitutional: Denies chills, Denies fever Eyes: denies blurred vision, denies pain Ears, nose, mouth and throat: Denies headache, Denies sore throat Cardiovascular: Reports dyspnea on exertion, Reports edema, Reports leg edema, Denies chest pain, Denies shortness of breath Respiratory: Reports dyspnea, Reports home oxygen, Reports respiratory infections, Denies cough Gastrointestinal: Denies abdominal pain, Denies diarrhea, Denies nausea, Denies vomiting Musculoskeletal: Denies myalgias Integumentary: Denies pruritus, Denies rash Neurological: Denies numbness, Denies weakness Psychiatric: Denies anxiety, Denies depression Endocrine: Denies fatigue, Denies weight change Past Medical History Past Medical History: COPD, Pneumonia Additional Past Medical History / Comment(s): Pt states prior to today, he was never diagnosed with copd, pneumonia 20 yrs ago, chronic back pain, R arm numbness/tingling and also involves R shoulder. History of Any Multi-Drug Resistant Organisms: None Reported Additional Past Surgical History / Comment(s): Colonoscopies with benign polypectomy, back injections. Past Anesthesia/Blood Transfusion Reactions: No Reported Reaction Past Psychological History: No Psychological Hx Reported Smoking Status: Former smoker Past Alcohol Use History: None Reported Past Drug Use History: None Reported - Past Family History Father Family Medical History: COPD Additional Family Medical History / Comment(s): Father of copd at the age of 69yrs. He was a smoker. Mother Family Medical History: COPD, Hypertension Additional Family Medical History / Comment(s): Mother at the age of 78yrs. Medications and Allergies Home Medications Medication Instructions Recorded Confirmed Type Gabapentin [Neurontin] 300 mg PO DAILY 10/14/17 08/17/20 History Hydrocodone/Acetaminophen [[place] 1 tab PO TID PRN 10/14/17 08/17/20 History 10-325] Diclofenac Sodium Gel [Voltaren 1 gm TOPICAL QID PRN 08/17/20 08/17/20 History Gel] Otc Water Pill (Unknown) 1 dose PO DAILY 08/17/20 08/17/20 History Sulfamethoxazole/Trimethoprim 1 tab PO BID 08/17/20 08/17/20 History [Bactrim DS 800-160 mg] Tiotropium 2.5 Mcg/Puff [Spiriva 2 puff INHALATION RT-DAILY 08/17/20 08/17/20 History Respimat 2.5 Mcg] Allergies Allergy/AdvReac Type Severity Reaction Status Date / Time No Known Allergies Allergy Verified 08/17/20 21:02 Physical Exam Vitals: Vital Signs Temp Pulse Pulse Resp BP BP Pulse Ox 08/18/20 15:23 92 08/18/20 15:12 90 08/18/20 13:37 98.3 F 110 H 20 192/82 90 L 08/18/20 10:46 92 08/18/20 10:39 90 08/18/20 08:00 96 21 08/18/20 07:41 98.3 F 96 21 154/66 90 L 08/18/20 07:28 64 08/18/20 07:19 64 08/18/20 04:08 60 20 164/69 91 L 08/18/20 01:49 98.5 F 65 191/68 94 L 08/17/20 23:50 70 20 08/17/20 23:28 99 F 80 18 134/70 90 L 08/17/20 22:20 80 18 134/82 88 L 08/17/20 21:35 88 08/17/20 21:10 85 08/17/20 19:09 79 18 135/55 91 L 08/17/20 18:02 98.0 F 75 19 119/61 89 L Intake and Output 08/18/20 08/18/20 08/18/20 06:59 14:59 22:59 Other: Voiding Method Urinal Urinal # Voids 1 GENERAL EXAM: Alert, pleasant, 60-year-old white male, on 10 L of oxygen with a pulse ox of 90%, comfortable in no apparent distress. HEAD: Normocephalic/atraumatic. EYES: Normal reaction of pupils, equal size. Conjunctiva pink, sclera white. NOSE: Clear with pink turbinates. THROAT: No erythema or exudates. NECK: No masses, no JVD, no thyroid enlargement, no adenopathy. CHEST: No chest wall deformity. Symmetrical expansion. LUNGS: Equal air entry with diffuse crackles CVS: Regular rate and rhythm, normal S1 and S2, no gallops, no murmurs, no rubs ABDOMEN: Soft, nontender. No hepatosplenomegaly, normal bowel sounds, no guarding or rigidity. EXTREMITIES: No clubbing, mild lower extremity edema no cyanosis, 2+ pulses and upper and lower extremities. MUSCULOSKELETAL: Muscle strength and tone normal. SPINE: No scoliosis or deformity SKIN: No rashes CENTRAL NERVOUS SYSTEM: Alert and oriented -3. No focal deficits, tone is normal in all 4 extremities. PSYCHIATRIC: Alert and oriented -3. Appropriate affect. Intact judgment and insight. Results - Laboratory Findings CBC and BMP: 08/18/20 04:30 08/18/20 04:30 PT/INR, D-dimer PT 9.7 sec (9.0-12.0) 08/17/20 18:18 INR 0.9 (<1.2) 08/17/20 18:18 D-Dimer 1.27 mg/L FEU (<0.60) H 08/17/20 18:18 Abnormal lab findings: Abnormal Labs 08/17/20 08/17/20 08/18/20 18:18 18:18 04:30 Neutrophils # 8.0 H Lymphocytes # 0.7 L D-Dimer 1.27 H Potassium 5.4 H Chloride 93 L Carbon Dioxide 44 H* Creatinine 0.58 L Glucose 128 H POC Glucose (mg/dL) 08/18/20 08/18/20 08/18/20 04:30 07:03 11:36 Neutrophils # Lymphocytes # D-Dimer Potassium 5.7 H Chloride 94 L Carbon Dioxide 39 H Creatinine 0.60 L Glucose 186 H POC Glucose (mg/dL) 145 H 131 H - Diagnostic Findings Chest x-ray: report reviewed, image reviewed CT scan - chest: report reviewed, image reviewed Additional studies: EKG reviewed Assessment and Plan Plan: Assessment: #1. Acute on chronic hypoxemic respiratory failure related to acute exacerb ation of COPD, and possibly mild fluid overload, negative for COVID 19 #2. Elevated d-dimer with questionable filling defect in left upper lobe pulmonary artery subsegmental branches, possibly a small pulmonary embolism #3. History of COPD, on home oxygen usually wears 4 L on a regular basis #4. History of obstructive sleep apnea noncompliant with CPAP #5. Chronic cor pulmonale #6. Former smoker #7. Chronic back pain #8. Chronic hypercapnic respiratory failure related to underlying COPD #9. Hyperkalemia, potassium is 5.7 on today's labs, we'll give the patient dose of Kayexalate Plan: We'll give the patient Kayexalate, follow-up lab work in 4 hours, continue breathing treatments, IV Solu-Medrol, heparin for DVT prophylaxis, CTA chest has been reviewed showing questionable small pulmonary embolism in the left upper lobe. We'll check lower extremity Dopplers for possibility of DVT, for now continue with current dose subcu heparin. Patient was counseled on compliance w ith CPAP device, he states he is claustrophobic, he wants to start wearing his home device when he returns home, he is hoping to improve enough in the next couple days and return home and start wearing his CPAP for at least 4 hours every night as Dr. Goff recommended. I offered to order CPAP device from the hospital at bedtime but he refused it because he stated that he had previously a bad experience with the hospital CPAP. Wean FiO2, avoid sedatives and narcotics, which are patient's level of consciousness, will be placed on CPAP or BiPAP support should his breathing get worse or he becomes more lethargic. I performed a history & physical examination of the patient and discussed their management with my nurse practitioner, Sumaya Mohan. I reviewed the nurse practitioner's note and agree with the documented findings and plan of care. Lung sounds are positive for bilateral crackles. The findings and the impression was discussed with the patient. I attest to the documentation by the nurse practitioner. Time with Patient: Greater than 30
[2020-08-18 16:40] LABS: Glucose,Whole Blood 107 mg/dL (75-99)
[2020-08-18] MEDS: HYDROcodone/APAP 10-325MG 1 EACH TAB PO PRN (16:41)
[2020-08-18 20:38] LABS: Glucose,Whole Blood 137 mg/dL (75-99)
[2020-08-18 21:04] LABS: African American GFR (CKD) >90 (>60 ml/min/1.73 sqM); Blood Urea Nitrogen 21 mg/dL (9-20); Chloride 88 mmol/L (98-107); Glucose 146 mg/dL (74-99); Non-African American GFR(CKD) >90 (>60 ml/min/1.73 sqM); Potassium 4.7 mmol/L (3.5-5.1); Sodium 134 mmol/L (137-145)
[2020-08-18 21:19] LABS: Anion Gap 7 mmol/L
[2020-08-18 21:22] LABS: Carbon Dioxide 39 mmol/L (22-30)
[2020-08-19 07:12] LABS: Glucose,Whole Blood 123 mg/dL (75-99)
[2020-08-19] MEDS: INSULIN ASPART (NovoLOG) 100 UNIT/ML VIAL SQ SCH ×4 (07:29→20:39)
[2020-08-19] MEDS: HEPARIN SODIUM,PORCINE/PF 5,000 UNIT/0.5 ML SYRINGE SQ SCH ×3 (08:38→23:11)
[2020-08-19] MEDS: methylPREDNISolone SOD SUCCI 40 MG/ML 1 ML VIAL IV SCH ×2 (08:39→15:36)
[2020-08-19] MEDS: GABAPENTIN 300 MG CAP PO SCH ×2 (08:52→20:03)
[2020-08-19] MEDS: HYDROcodone/APAP 10-325MG 1 EACH TAB PO PRN ×2 (08:55→20:10)
[2020-08-19] MEDS: IPRATROPIUM-ALBUTEROL 3 ML NEB INHALATION SCH ×4 (09:30→22:31)
[2020-08-19 11:39] LABS: Glucose,Whole Blood 120 mg/dL (75-99)
[2020-08-19] MEDS ORDERED: FUROSEMIDE 10 MG/ML 4 ML VIAL IV STA (15:56)
--- NOTE | 2020-08-19 16:04 | P.PN ---
Subjective Progress Note Date: 08/19/20 Principal diagnosis: Acute on chronic hypoxic respiratory failure related to COPD This is 60-year-old white male patient was known to our practice from previous admissions related to complications secondary to COPD, underlying obstructive sleep apnea and chronic diastolic congestive heart failure, patient follows with Dr. Goff in the office. He normally wears 4 L of oxygen on a regular basis, he does have underlying history of obstructive sleep apnea, he recently received a new device 2 months ago however it is still sitting on his stable and he has not worn it. He states he is claustrophobic, he is trying to gradually start wearing it for several hours at a time. Denies any fever or chills, he was more confused at home, his having a mild cough, and at times producing some yellow phlegm. His chest x-ray showed bilateral infiltrates, his d-dimer was 1.27, and CTA chest was completed showing to multiple filling defects in the left upper lobe pulmonary artery subsegmental branches and acute embolus could not be entirely excluded. There were diffuse bilateral groundglass opacities with mild patchy areas in the upper lobes similar to the prior CT, and small bilateral pleural effusions with adjacent small consolidations. Patient has history of chronic diastolic CHF, however he denies any worsening swelling in his lower extremities, he takes Lasix on a regular basis 40 mg daily, however his states his abdomen seems to be more distended. His labs have been reviewed, CBC on admission was within normal limits, d-dimer was 1.7 as mentioned above, s odium is 140, potassium is 5.4, chloride was 93, CO2 is 44, B1 is 11 creatinine 0.58, LFTs were within normal limits, BNP was 123, troponin was 0.027. COVID 19 was negative. Patient was started on IV steroids, breathing treatments. Echocardiogram shows left ventricular systolic function with an EF of 55-60%, mildly enlarged right ventricle, mild MR, mild TR, mild pulmonary hypertension, and PA systolic of 35.5 mmHg. At the time of my evaluation he is up in the chair, is currently on 10 L of oxygen pulse ox is 90%, he seems to be comfortable, lung sounds reveal diffuse crackles bilaterally, mild swelling in his lower extremities. On 08/19/2020 patient seen in follow-up on medical surgical floor, still remains on high flow oxygen currently at 12 L, and pulse ox is 94% subsequently his FiO2 was cut back to 10 L. Patient is continuing to refuse CPAP, his states that she will not even bring it and because she knows for sure that the patient will not wear it. he is up to the bathroom, tolerated ambulation fairly well, he is awake and alert, no altered mentation, he is answering questions appropriately, he is afebrile, does get exertional dyspnea, recovers. No repeat chest x-ray today, echocardiogram of 55-60% LV function, with moderate concentric LVH. Mild pulmonary hypertension with right-sided pressures of 35.5 mmHg. Objective - Vital Signs Vital signs: Vital Signs Temp 98.5 F 08/19/20 08:00 Pulse 80 08/19/20 13:10 Resp 18 08/19/20 10:24 BP 131/84 08/19/20 08:00 Pulse Ox 94 L 08/19/20 08:00 Intake & Output 08/18/20 08/19/20 08/19/20 18:59 06:59 18:59 Intake Total 200 Balance 200 Intake: Oral 200 Other: Voiding Method Urinal Urinal Urinal # Voids 2 - Exam GENERAL EXAM: Alert, pleasant, 60-year-old white male, on 10 L of oxygen with a pulse ox of 90%, comfortable in no apparent distress. HEAD: Normocephalic/atraumatic. EYES: Normal reaction of pupils, equal size. Conjunctiva pink, sclera white. NOSE: Clear with pink turbinates. THROAT: No erythema or exudates. NECK: No masses, no JVD, no thyroid enlargement, no adenopathy. CHEST: No chest wall deformity. Symmetrical expansion. LUNGS: Equal air entry with diffuse crackles CVS: Regular rate and rhythm, normal S1 and S2, no gallops, no murmurs, no rubs ABDOMEN: Soft, nontender. No hepatosplenomegaly, normal bowel sounds, no guarding or rigidity. EXTREMITIES: No clubbing, mild lower extremity edema no cyanosis, 2+ pulses and upper and lower extremities. MUSCULOSKELETAL: Muscle strength and tone normal. SPINE: No scoliosis or deformity SKIN: No rashes CENTRAL NERVOUS SYSTEM: Alert and oriented -3. No focal deficits, tone is no rmal in all 4 extremities. PSYCHIATRIC: Alert and oriented -3. Appropriate affect. Intact judgment and insight. - Labs CBC & Chem 7: 08/18/20 04:30 08/18/20 20:09 Labs: Abnormal Lab Results - Last 24 Hours (Table) 08/18/20 08/18/20 08/18/20 Range/Units 16:39 20:09 20:37 Sodium 134 L (137-145) mmol/L Chloride 88 L (98-107) mmol/L Carbon Dioxide 39 H (22-30) mmol/L BUN 21 H (9-20) mg/dL Glucose 146 H (74-99) mg/dL POC Glucose (mg/dL) 107 H 137 H (75-99) mg/dL 08/19/20 08/19/20 Range/Units 07:11 11:38 Sodium (137-145) mmol/L Chloride (98-107) mmol/L Carbon Dioxide (22-30) mmol/L BUN (9-20) mg/dL Glucose (74-99) mg/dL POC Glucose (mg/dL) 123 H 120 H (75-99) mg/dL Assessment and Plan Plan: Assessment: #1. Acute on chronic hypoxemic respiratory failure related to acute exacerba tion of COPD, and possibly mild fluid overload, negative for COVID 19 #2. Elevated d-dimer with questionable filling defect in left upper lobe pulmonary artery subsegmental branches, possibly a small pulmonary embolism #3. History of COPD, on home oxygen usually wears 4 L on a regular basis #4. History of obstructive sleep apnea noncompliant with CPAP #5. Chronic cor pulmonale #6. Former smoker #7. Chronic back pain #8. Chronic hypercapnic respiratory failure related to underlying COPD #9. Hyperkalemia, potassium is 5.7 on today's labs, down to 4.7 after after Kayexalate today Plan: Continue current medical treatment, we will add Pulmicort and Perforomist, continue DuoNeb, increase IV Solu-Medrol to 60 every 6 hours, we'll give the patient a dose of IV Lasix, repeat chest x-ray in the morning, wean FiO2 to maintain O2 saturation between 89-90%, patient still refuses to wear CPAP. We'll continue to follow I performed a history & physical examination of the patient and discussed their management with my nurse practitioner, Sumaya Mohan. I reviewed the nurse practitioner's note and agree with the documented findings and plan of care. Lung sounds are positive for bilateral crackles. The findings and the impression was discussed with the patient. I attest to the documentation by the nurse practitioner. Time with Patient: Less than 30
[2020-08-19 16:46] LABS: Glucose,Whole Blood 122 mg/dL (75-99)
--- NOTE | 2020-08-19 16:48 | US ---
EXAMINATION TYPE: US venous doppler duplex LE BI DATE OF EXAM: 08/19/2020 4:40 PM COMPARISON: 10/14/2017 CLINICAL HISTORY: rule out DVt. SIDE PERFORMED: Bilateral TECHNIQUE: The lower extremity deep venous system is examined utilizing real time linear array sonog quinten with graded compression, doppler sonography and color-flow sonography. VESSELS IMAGED: Common Femoral Vein Deep Femoral Vein Greater Saphenous Vein * Femoral Vein Popliteal Vein Small Saphenous Vein * Proximal Calf Veins (* superficial vessels) Right Leg: Technical limitations due to patient's body habitus. unable to visualize lower femoral ve in for compression. no evidence of DVT as visualized. Anechoic area right popliteal fossa = 5.4cm, Ba ker's cyst Left Leg: Technical limitations due to patient's body habitus. unable to visualize lower femoral vei n for compression. no evidence of DVT as visualized IMPRESSION: 1. Examination is very limited due to body habitus. 2. No deep venous thrombosis lower extremities identified. 3. Popliteal cyst right popliteal space
[2020-08-19] MEDS: methylPREDNISolone SOD SUCCI 125 MG/2 ML VIAL IV SCH ×2 (17:02→23:10)
--- NOTE | 2020-08-19 17:57 | PN ---
PROGRESS NOTE This patient was admitted with COPD exacerbation, up to 6 L of oxygen. He is set up for BiPAP at home. He states his breathing is a little bit better today, even though he is on 6 L. He is refusing CPAP here, although he says he is going to at home. says he will not. Echo shows his heart is pumping normal with moderate LVH setting of 6-10 L of oxygen. Pulse ox is only 90. Head is normocephalic, atraumatic. Pupils equal, round, reactive. Lungs are fairly clear. GI: Soft. ENDOCRINE: Morbid obesity. NEUROLOGIC: Alert and oriented x3. BUN is 21, creatinine 0.69, sodium 134, potassium 4.7. ASSESSMENT: 1. Acute on chronic hypoxemic respiratory failure secondary to chronic obstructive pulmonary disease exacerbation, mild fluid overload. Negative for COVID. 2. Elevated D-dimer. 3. Questionable subsegmental pulmonary emboli. 4. Chronic obstructive pulmonary disease. 5. Sleep apnea. 6. Cor pulmonale. 7. Nicotine addiction. Continue Pulmicort, Perforomist, Medardo, Solu-Medrol IV, IV Lasix. Wean FiO2 to maintain O2 saturation between 89 and 90. Prognosis extremely guarded . MMODL / IJN: [id number] /
[2020-08-19 20:37] LABS: Glucose,Whole Blood 136 mg/dL (75-99)
[2020-08-19] MEDS: FORMOTEROL FUMARATE 20 MCG/2 ML NEBU INHALATION SCH (22:31)
[2020-08-19] MEDS: BUDESONIDE 1 MG/2 ML NEBU INHALATION SCH (22:31)
[2020-08-20] MEDS: methylPREDNISolone SOD SUCCI 125 MG/2 ML VIAL IV SCH ×4 (05:05→22:51)
[2020-08-20] MEDS: HYDROcodone/APAP 10-325MG 1 EACH TAB PO PRN ×2 (05:12→22:50)
[2020-08-20 07:32] LABS: Glucose,Whole Blood 153 mg/dL (75-99)
--- NOTE | 2020-08-20 07:35 | XR ---
EXAMINATION TYPE: XR chest 1V portable DATE OF EXAM: 08/20/2020 COMPARISON: 08/17/2020 INDICATION: Dyspnea TECHNIQUE: Single frontal view of the chest is obtained. FINDINGS: The heart size is enlarged. The pulmonary vasculature is normal. Bibasilar infiltrates are present, similar to comparison. Small pleural effusion may be present. IMPRESSION: 1. Cardiomegaly. 2. Bibasilar stable infiltrates. 3. Small pleural effusion
[2020-08-20] MEDS: INSULIN ASPART (NovoLOG) 100 UNIT/ML VIAL SQ SCH ×4 (08:03→22:49)
[2020-08-20] MEDS: HEPARIN SODIUM,PORCINE/PF 5,000 UNIT/0.5 ML SYRINGE SQ SCH (08:03)
[2020-08-20 08:14] LABS: Basophils % (A) 0 %; Eosinophils # (A) 0.1 k/uL (0-0.7); Eosinophils % (A) 1 %; HCT 43.5 % (39.0-53.0); HGB 14.3 gm/dL (13.0-17.5); Lymphocytes # (A) 0.9 k/uL (1.0-4.8); Lymphocytes % (A) 10 %; MCH 29.9 pg (25.0-35.0); MCHC 32.9 g/dL (31.0-37.0); MCV 90.8 fL (80.0-100.0); Mean Platelet Volume 7.5; Monocytes # (A) 0.2 k/uL (0-1.0); Monocytes % (A) 3 %; Neutrophils # (A) 7.6 k/uL (1.3-7.7); Neutrophils % (A) 86 %; Platelet Count 361 k/uL (150-450); RDW 13.5 % (11.5-15.5); WBC 8.9 k/uL (3.8-10.6)
[2020-08-20 08:34] LABS: ALT 18 U/L (4-49); AST 25 U/L (17-59); African American GFR (CKD) >90 (>60 ml/min/1.73 sqM); Albumin 4.3 g/dL (3.5-5.0); Albumin/Globulin Ratio 1.3; Alkaline Phosphatase 53 U/L (38-126); Anion Gap 8 mmol/L; Blood Urea Nitrogen 22 mg/dL (9-20); Calcium 9.3 mg/dL (8.4-10.2); Carbon Dioxide 36 mmol/L (22-30); Chloride 90 mmol/L (98-107); Globulin 3.4 g/dL; Glucose 183 mg/dL (74-99); Non-African American GFR(CKD) >90 (>60 ml/min/1.73 sqM); Potassium 4.9 mmol/L (3.5-5.1); Sodium 134 mmol/L (137-145); Total Bilirubin 0.5 mg/dL (0.2-1.3); Total Protein 7.7 g/dL (6.3-8.2)
[2020-08-20] MEDS: FORMOTEROL FUMARATE 20 MCG/2 ML NEBU INHALATION SCH ×2 (08:55→21:02)
[2020-08-20] MEDS: BUDESONIDE 1 MG/2 ML NEBU INHALATION SCH ×2 (08:55→21:02)
[2020-08-20] MEDS: IPRATROPIUM-ALBUTEROL 3 ML NEB INHALATION SCH ×4 (08:55→21:05)
[2020-08-20 11:31] LABS: Glucose,Whole Blood 127 mg/dL (75-99)
--- NOTE | 2020-08-20 11:49 | P.PN ---
Subjective Progress Note Date: 08/20/20 Principal diagnosis: Acute on chronic hypoxic respiratory failure secondary to acute exacerbation of COPD. This is 60-year-old white male patient was known to our practice from previous admissions related to complications secondary to COPD, underlying obstructive sleep apnea and chronic diastolic congestive heart failure, patient follows with Dr. Goff in the office. He normally wears 4 L of oxygen on a regular basis, he does have underlying history of obstructive sleep apnea, he recently received a new device 2 months ago however it is still sitting on his stable and he has not worn it. He states he is claustrophobic, he is trying to gradually start wearing it for several hours at a time. Denies any fever or chills, he was more confused at home, his having a mild cough, and at times producing some yellow phlegm. His chest x-ray showed bilateral infiltrates, his d-dimer was 1.27, and CTA chest was completed showing to multiple filling defects in the left upper lobe pulmonary artery subsegmental branches and acute embolus could not be entirely excluded. There were diffuse bilateral groundglass opacities with mild patchy areas in the upper lobes similar to the prior CT, and small bilateral pleural effusions with adjacent small consolidations. Patient has history of chronic diastolic CHF, however he denies any worsening swelling in his lower extremities, he takes Lasix on a regular basis 40 mg daily, however his states his abdomen seems to be more distended. His labs have been reviewed, CBC on admission was within normal limits, d-dimer was 1.7 as mentioned above, sodium is 140, potassium is 5.4, chloride was 93, CO2 is 44, B1 is 11 creatinine 0.58, LFTs were within normal limits, BNP was 123, troponin was 0.027. COVID 19 was negative. Patient was started on IV steroids, breathing treatments. Echocardiogram shows left ventricular systolic function with an EF of 55-60%, mildly enlarged right ventricle, mild MR, mild TR, mild pulmonary hypertension, and PA systolic of 35.5 mmHg. At the time of my evaluation he is up in the chair, is currently on 10 L of oxygen pulse ox is 90%, he seems to be comfortable, lung sounds reveal diffuse crackles bilaterally, mild swelling in his lower extremities. On 08/19/2020 patient seen in follow-up on medical surgical floor, still remains on high flow oxygen currently at 12 L, and pulse ox is 94% subsequently his FiO2 was cut back to 10 L. Patient is continuing to refuse CPAP, his states that she will not even bring it and because she knows for sure that the patient will not wear it. he is up to the bathroom, tolerated ambulation fairly well, he is awake and alert, no altered mentation, he is answering questions appropriately, he is afebrile, does get exertional dyspnea, recovers. No repeat chest x-ray today, echocardiogram of 55-60% LV function, with moderate concentric LVH. Mild pulmonary hypertension with right-sided pressures of 35.5 mmHg. Was reevaluated today on 08/20/2020, patient is feeling much better today, breathing a lot easier. Hardly any cough no wheezing no shortness of breath. Patient is presently on room air. Labs were basically unremarkable including CBC and basic metabolic profile, bicarb is 36. His CT angiogram of the chest showed questionable filling defect in the left upper pulmonary artery subsegmental branches hence acute pulmonary embolism could not be excluded. Venous Doppler was negative for DVT. D-dimer was elevated at 1.27. Objective - Vital Signs Vital signs: Vital Signs Temp 98.3 F 08/20/20 07:59 Pulse 64 08/20/20 11:29 Resp 18 08/20/20 07:59 BP 190/79 08/20/20 07:59 Pulse Ox 90 L 08/20/20 07:59 Intake & Output 08/19/20 08/20/20 08/20/20 18:59 06:59 18:59 Intake Total 400 Balance 400 Intake: Oral 400 Other: Voiding Method Urinal Urinal # Voids 2 - Exam Physical Exam: Revealed a 60-year-old white male, in no distress. Head: Atraumatic, normocephalic. HEENT:[Neck is supple.] [No neck masses.] [No thyromegaly.] [No JVD.] Chest: [Symmetrical chest expansion, diminished breath sounds at the bases no rhonchi and no wheezes. Cardiac Exam: [Normal S1 and S2, no S3 gallop, no murmur.] Abdomen: [Soft, nontender, no megaly, no rebound, no guarding, normal bowel sounds.] Extremities: [No clubbing, no edema, no cyanosis.] Neurological Exam: [No focal neurologic deficit.] Alert and oriented 3. Psychiatric: Normal mood affect and normal mental status examination. Musculoskeletal: No deformities noted limitation in range of motion. - Labs CBC & Chem 7: 08/20/20 07:44 08/20/20 07:44 Labs: Abnormal Lab Results - Last 24 Hours (Table) 08/19/20 08/19/20 08/20/20 Range/Units 16:44 20:35 07:31 Lymphocytes # (1.0-4.8) k/uL Sodium (137-145) mmol/L Chloride (98-107) mmol/L Carbon Dioxide (22-30) mmol/L BUN (9-20) mg/dL Creatinine (0.66-1.25) mg/dL Glucose (74-99) mg/dL POC Glucose (mg/dL) 122 H 136 H 153 H (75-99) mg/dL 08/20/20 08/20/20 08/20/20 Range/Units 07:44 07:44 11:30 Lymphocytes # 0.9 L (1.0-4.8) k/uL Sodium 134 L (137-145) mmol/L Chloride 90 L (98-107) mmol/L Carbon Dioxide 36 H (22-30) mmol/L BUN 22 H (9-20) mg/dL Creatinine 0.60 L (0.66-1.25) mg/dL Glucose 183 H (74-99) mg/dL POC Glucose (mg/dL) 127 H (75-99) mg/dL Assessment and Plan Assessment: Impression: Acute on chronic hypoxic and hypercapnic respiratory failure secondary to COPD exacerbation. Abnormal CT angiogram of the chest, questioning the possibility of pulmonary embolism. Hence would recommend at least a 6 months course of oral anticoagulation therapy History of COPD and chronic hypoxic respiratory failure normally on 4 L nasal cannula History of obstructive sleep apnea syndrome. Chronic cor pulmonale. Former smoker. Chronic hypercapnic respiratory failure secondary to COPD and obstructive sleep apnea. Recommendation: Continue present course of bronchodilators. Continue oxygen and titrate accordingly. Continue CPAP, patient refuses to use it. Continue anticoagulation therapy. Follow-up on outpatient basis with Dr. KUMAR post discharge Time with Patient: Less than 30
[2020-08-20] MEDS: RIVAROXABAN 15 MG TAB PO SCH ×2 (12:25→18:19)
[2020-08-20 16:27] LABS: Glucose,Whole Blood 141 mg/dL (75-99)
[2020-08-20] MEDS ORDERED: FUROSEMIDE 10 MG/ML 2 ML VIAL IV ONE (19:45)
[2020-08-20 20:36] LABS: Glucose,Whole Blood 118 mg/dL (75-99)
[2020-08-20] MEDS: GABAPENTIN 300 MG CAP PO SCH (20:40)
--- NOTE | 2020-08-21 05:17 | PN ---
PROGRESS NOTE 58-year-old white male, morbid obesity, obstructive sleep apnea, COPD exacerbation, possible subsegmental PE. Remains on 6-8 L oxygen. The patient is not improving. Waiting for pulmonology recommendations. He had increased blood pressure tonight and some third-spacing fluid. We will start him on Lasix 20 mg IV tonight. Cardiovascular S1-S2. Lungs show rales at the base. Endocrine: Morbid obesity. Psych: Fair mood and affect. ASSESSMENT: 1. Chronic obstructive pulmonary disease exacerbation. 2. Obstructive sleep apnea. 3. Tracheobronchitis. 4. Fluid overload. 5. Possible right-sided heart failure. Started Lasix 20 mg daily. Continue on 6 L oxygen, try to titrate down. Wait for Pulmonary recommendations. MMODL / IJN: [id number] /
[2020-08-21] MEDS: methylPREDNISolone SOD SUCCI 125 MG/2 ML VIAL IV SCH (05:22)
[2020-08-21 07:08] LABS: Glucose,Whole Blood 147 mg/dL (75-99)
[2020-08-21] MEDS: HYDROcodone/APAP 10-325MG 1 EACH TAB PO PRN ×3 (07:28→22:50)
[2020-08-21] MEDS: INSULIN ASPART (NovoLOG) 100 UNIT/ML VIAL SQ SCH ×4 (07:28→21:46)
[2020-08-21] MEDS: RIVAROXABAN 15 MG TAB PO SCH ×2 (07:30→17:05)
[2020-08-21] MEDS: BUDESONIDE 1 MG/2 ML NEBU INHALATION SCH ×2 (08:18→20:07)
[2020-08-21] MEDS: FORMOTEROL FUMARATE 20 MCG/2 ML NEBU INHALATION SCH ×2 (08:18→20:07)
[2020-08-21] MEDS: IPRATROPIUM-ALBUTEROL 3 ML NEB INHALATION SCH ×4 (08:18→20:07)
--- NOTE | 2020-08-21 10:53 | PN ---
PROGRESS NOTE The patient remains on Xarelto for subsegmental PE. He remains on IV Solu-Medrol 60 q.6h for COPD exacerbation, Medardo shelby. He is on high-flow oxygen at 8 L at this time. Normally wears 5 at home. He is not showing a whole lot of improvement. He had some fluid overload. I gave him 20 of Lasix yesterday. He is sitting up in the chair. He is afebrile. Echo shows normal ejection fraction recently. Bicarb is 35. CT angiogram of the chest shows subsegmental branches, possible PE. Venous Doppler was negative. D-dimer is elevated. Temperature 98.3, blood pressure is 170s to 90s over 60s to 80s, pulse 64, respiratory rate 18 to 20. Extremities showed generalized anasarca type changes, obesity changes. Heart is S1, S2. Lungs show mild wheezes x4. Psych fair mood and affect. ASSESSMENT: 1. Acute on chronic hypoxemic hypercapnic respiratory failure secondary to chronic obstructive pulmonary disease exacerbation, possible subsegmental pulmonary embolism, on oral anticoagulation for 6 months. 2. History of chronic obstructive pulmonary disease. 3. Chronic respiratory failure. 4. Sleep apnea. 5. Cor pulmonale. 6. Former smoker. Bronchodilators, oxygen, CPAP. Continue Xarelto. Possible discharge home when the patient feels ready. MMODL / IJN: [id number] /
[2020-08-21 11:29] LABS: Glucose,Whole Blood 141 mg/dL (75-99)
[2020-08-21] MEDS: FUROSEMIDE 10 MG/ML 4 ML VIAL IV SCH (14:51)
--- NOTE | 2020-08-21 15:26 | P.PN ---
Subjective Progress Note Date: 08/21/20 Principal diagnosis: Acute on chronic hypoxic respiratory failure related to COPD This is 60-year-old white male patient was known to our practice from previous admissions related to complications secondary to COPD, underlying obstructive sleep apnea and chronic diastolic congestive heart failure, patient follows with Dr. Goff in the office. He normally wears 4 L of oxygen on a regular basis, he does have underlying history of obstructive sleep apnea, he recently received a new device 2 months ago however it is still sitting on his stable and he has not worn it. He states he is claustrophobic, he is trying to gradually start wearing it for several hours at a time. Denies any fever or chills, he was more confused at home, his having a mild cough, and at times producing some yellow phlegm. His chest x-ray showed bilateral infiltrates, his d-dimer was 1.27, and CTA chest was completed showing to multiple filling defects in the left upper lobe pulmonary artery subsegmental branches and acute embolus could not be entirely excluded. There were diffuse bilateral groundglass opacities with mild patchy areas in the upper lobes similar to the prior CT, and small bilateral pleural effusions with adjacent small consolidations. Patient has history of chronic diastolic CHF, however he denies any worsening swelling in his lower extremities, he takes Lasix on a regular basis 40 mg daily, however his states his abdomen seems to be more distended. His labs have been reviewed, CBC on admission was within normal limits, d-dimer was 1.7 as mentioned above, s odium is 140, potassium is 5.4, chloride was 93, CO2 is 44, B1 is 11 creatinine 0.58, LFTs were within normal limits, BNP was 123, troponin was 0.027. COVID 19 was negative. Patient was started on IV steroids, breathing treatments. Echocardiogram shows left ventricular systolic function with an EF of 55-60%, mildly enlarged right ventricle, mild MR, mild TR, mild pulmonary hypertension, and PA systolic of 35.5 mmHg. At the time of my evaluation he is up in the chair, is currently on 10 L of oxygen pulse ox is 90%, he seems to be comfortable, lung sounds reveal diffuse crackles bilaterally, mild swelling in his lower extremities. On 08/19/2020 patient seen in follow-up on medical surgical floor, still remains on high flow oxygen currently at 12 L, and pulse ox is 94% subsequently his FiO2 was cut back to 10 L. Patient is continuing to refuse CPAP, his states that she will not even bring it and because she knows for sure that the patient will not wear it. he is up to the bathroom, tolerated ambulation fairly well, he is awake and alert, no altered mentation, he is answering questions appropriately, he is afebrile, does get exertional dyspnea, recovers. No repeat chest x-ray today, echocardiogram of 55-60% LV function, with moderate concentric LVH. Mild pulmonary hypertension with right-sided pressures of 35.5 mmHg. On 08/21/2020 patient seen in follow-up on medical surgical floor, he is currently on 8 L of oxygen pulse ox is 91%, last night he was having increasing confusion and agitation, and his Solu-Medrol was switched over to prednisone, he continues on several tone, he did wear his CPAP last night for 4 hours, and ambulating to the bathroom, still has lower extremity edema, he was given a dose of 20 mg of Lasix yesterday, he continues on breathing treatments, obtain follow-up chest x-ray in the morning. No acute events overnight. No chest pain. Objective - Vital Signs Vital signs: Vital Signs Temp 98.1 F 08/21/20 14:02 Pulse 87 08/21/20 14:02 Resp 19 08/21/20 14:02 BP 143/65 08/21/20 14:02 Pulse Ox 94 L 08/21/20 14:02 Intake & Output 08/20/20 08/21/20 08/21/20 18:59 06:59 18:59 Weight 161 kg Other: Voiding Method Urinal Urinal # Voids 3 - Exam GENERAL EXAM: Alert, pleasant, 60-year-old white male, on 8 L of oxygen with a pulse ox of 94%, comfortable in no apparent distress. HEAD: Normocephalic/atraumatic. EYES: Normal reaction of pupils, equal size. Conjunctiva pink, sclera white. NOSE: Clear with pink turbinates. THROAT: No erythema or exudates. NECK: No masses, no JVD, no thyroid enlargement, no adenopathy. CHEST: No chest wall deformity. Symmetrical expansion. LUNGS: Equal air entry with diffuse crackles CVS: Regular rate and rhythm, normal S1 and S2, no gallops, no murmurs, no rubs ABDOMEN: Soft, nontender. No hepatosplenomegaly, normal bowel sounds, no guarding or rigidity. EXTREMITIES: No clubbing, mild lower extremity edema no cyanosis, 2+ pulses and upper and lower extremities. MUSCULOSKELETAL: Muscle strength and tone normal. SPINE: No scoliosis or deformity SKIN: No rashes CENTRAL NERVOUS SYSTEM: Alert and oriented -3. No focal deficits, tone is normal in all 4 extremities. PSYCHIATRIC: Alert and oriented -3. Appropriate affect. Intact judgment and insight. - Labs CBC & Chem 7: 08/20/20 07:44 08/20/20 07:44 Labs: Abnormal Lab Results - Last 24 Hours (Table) 08/20/20 08/20/20 08/21/20 Range/Units 16:18 20:35 07:07 POC Glucose (mg/dL) 141 H 118 H 147 H (75-99) mg/dL 08/21/20 Range/Units 11:26 POC Glucose (mg/dL) 141 H (75-99) mg/dL Assessment and Plan Plan: Assessment: #1. Acute on chronic hypoxemic respiratory failure related to acute exacerbation of COPD, and possibly mild fluid overload, negative for COVID 19 #2. Elevated d-dimer with questionable filling defect in left upper lobe pulmo nary artery subsegmental branches, possibly a small pulmonary embolism, and patient was started on Xarelto #3. History of COPD, on home oxygen usually wears 4 L on a regular basis #4. History of obstructive sleep apnea noncompliant with CPAP #5. Chronic cor pulmonale #6. Former smoker #7. Chronic back pain #8. Chronic hypercapnic respiratory failure related to underlying COPD #9. Hyperkalemia, potassium is 5.7 on today's labs, down to 4.7 after after Kayexalate today Plan: Continue current medical treatment, continue weaning FiO2 to keep O2 sat between 89-90%, patient actually did wear his CPAP last night tolerated for 4 hours, encourage CPAP use at night and as needed during the day, continue weaning FiO2, we will add daily dose of Lasix 40 mg IV push daily, follow-up chest x-ray in the morning, follow-up blood work electrolytes and renal profile. I performed a history & physical examination of the patient and discussed their management with my nurse practitioner, Sumaya Mohan. I reviewed the nurse practitioner's note and agree with the documented findings and plan of care. Lung sounds are positive for bilateral crackles. The findings and the impression was discussed with the patient. I attest to the documentation by the nurse practitioner. Time with Patient: Less than 30
[2020-08-21 16:26] LABS: Glucose,Whole Blood 104 mg/dL (75-99)
[2020-08-21 21:20] LABS: Glucose,Whole Blood 98 mg/dL (75-99)
[2020-08-21] MEDS: GABAPENTIN 300 MG CAP PO SCH (22:50)
[2020-08-22] MEDS ORDERED: LORazepam 2 MG/ML INJ IV PRN (02:03)
[2020-08-22 07:04] LABS: Glucose,Whole Blood 113 mg/dL (75-99)
[2020-08-22] MEDS: INSULIN ASPART (NovoLOG) 100 UNIT/ML VIAL SQ SCH ×4 (07:17→20:36)
[2020-08-22] MEDS: RIVAROXABAN 15 MG TAB PO SCH ×2 (07:19→17:13)
[2020-08-22] MEDS: FUROSEMIDE 10 MG/ML 4 ML VIAL IV SCH (07:19)
[2020-08-22 07:20] LABS: African American GFR (CKD) >90 (>60 ml/min/1.73 sqM); Blood Urea Nitrogen 27 mg/dL (9-20); Calcium 9.1 mg/dL (8.4-10.2); Chloride 90 mmol/L (98-107); Glucose 86 mg/dL (74-99); Non-African American GFR(CKD) >90 (>60 ml/min/1.73 sqM); Potassium 4.2 mmol/L (3.5-5.1); Sodium 137 mmol/L (137-145)
[2020-08-22 07:27] LABS: Anion Gap 6 mmol/L
[2020-08-22 07:43] LABS: Carbon Dioxide 41 mmol/L (22-30)
--- NOTE | 2020-08-22 07:48 | XR ---
EXAMINATION TYPE: XR chest 1V portable DATE OF EXAM: 08/22/2020 CLINICAL HISTORY: Difficulty breathing and COPD progress study. TECHNIQUE: Single AP portable upright view of the chest is obtained. COMPARISON: Chest x-ray from 2 days earlier and older studies. CTA chest August 17, 2020. FINDINGS: Exam suboptimal due to portable technique and patient's large body habitus. Persistent car diomegaly with bibasilar opacities and slightly more prominent mild central vascular congestion. Mild Diffuse tracheal narrowing redemonstrated. Osseous structures are intact. IMPRESSION: Correlate for persistent CHF exacerbation as there is cardiomegaly with small to tiny jenna ateral pleural effusions and suspected mild central vascular congestion.
[2020-08-22] MEDS: FORMOTEROL FUMARATE 20 MCG/2 ML NEBU INHALATION SCH ×3 (07:52→20:21)
[2020-08-22] MEDS: IPRATROPIUM-ALBUTEROL 3 ML NEB INHALATION SCH ×4 (07:52→20:21)
[2020-08-22] MEDS: BUDESONIDE 1 MG/2 ML NEBU INHALATION SCH ×2 (07:52→20:21)
[2020-08-22] MEDS: predniSONE 20 MG TAB PO SCH (07:57)
[2020-08-22 11:31] LABS: Glucose,Whole Blood 124 mg/dL (75-99)
--- NOTE | 2020-08-22 11:45 | P.PN ---
Subjective Progress Note Date: 08/22/20 This is 60-year-old white male patient was known to our practice from previous admissions related to complications secondary to COPD, underlying obstructive sleep apnea and chronic diastolic congestive heart failure, patient follows with Dr. Goff in the office. He normally wears 4 L of oxygen on a regular basis, he does have underlying history of obstructive sleep apnea, he recently received a new device 2 months ago however it is still sitting on his stable and he has not worn it. He states he is claustrophobic, he is trying to gradually start wearing it for several hours at a time. Denies any fever or chills, he was more confused at home, his having a mild cough, and at times producing some yellow phlegm. His chest x-ray showed bilateral infiltrates, his d-dimer was 1.27, and CTA chest was completed showing to multiple filling defects in the left upper lobe pulmonary artery subsegmental branches and acute embolus could not be entirely excluded. There were diffuse bilateral groundglass opacities with mild patchy areas in the upper lobes similar to the prior CT, and small bilateral pleural effusions with adjacent small consolidations. Patient has history of chronic diastolic CHF, however he denies any worsening swelling in his lower extremities, he takes Lasix on a regular basis 40 mg daily, however his states his abdomen seems to be more distended. His labs have been reviewed, CBC on admission was within normal limits, d-dimer was 1.7 as mentioned above, sodium is 140, potassium is 5.4, chloride was 93, CO2 is 44, B1 is 11 creatinine 0.58, LFTs were within normal limits, BNP was 123, troponin was 0.027. COVID 19 was negative. Patient was started on IV steroids, breathing treatments. Echocardiogram shows left ventricular systolic function with an EF of 55-60%, mildly enlarged right ventricle, mild MR, mild TR, mild pulmonary hypertension, and PA systolic of 35.5 mmHg. At the time of my evaluation he is up in the chair, is currently on 10 L of oxygen pulse ox is 90%, he seems to be comfortable, lung sounds reveal diffuse crackles bilaterally, mild swelling in his lower extremities. On 08/19/2020 patient seen in follow-up on medical surgical floor, still remains on high flow oxygen currently at 12 L, and pulse ox is 94% subsequently his FiO2 was cut back to 10 L. Patient is continuing to refuse CPAP, his states that she will not even bring it and because she knows for sure that the patient will not wear it. he is up to the bathroom, tolerated ambulation fairly well, he is awake and alert, no altered mentation, he is answering questions appropriately, he is afebrile, does get exertional dyspnea, recovers. No repeat chest x-ray today, echocardiogram of 55-60% LV function, with moderate concentric LVH. Mild pulmonary hypertension with right-sided pressures of 35.5 mmHg. On 08/21/2020 patient seen in follow-up on medical surgical floor, he is currently on 8 L of oxygen pulse ox is 91%, last night he was having increasing confusion and agitation, and his Solu-Medrol was switched over to prednisone, he continues on several tone, he did wear his CPAP last night for 4 hours, and ambulating to the bathroom, still has lower extremity edema, he was given a dose of 20 mg of Lasix yesterday, he continues on breathing treatments, obtain follow-up chest x-ray in the morning. No acute events overnight. No chest pain. 08/22/2020 the patient is being seen for a follow-up. The patient became obtunded and lethargic and hard to arouse. I think he went into acute hypercapnic respiratory failure. He has a VPAP are that is sitting at his bedside which is set at a pressure minimal for a maximum of 25 with a pressure support of 14 I checked the compliance data from his machine and the patient has been barely using the machine over the past month. He currently has a Quintanilla catheter. He was being all over the place while being on IV Lasix. He is also on IV Solu-Medrol. He is arousable. He goes back to sleep and he snores quite loudly when left unstimulated. No focal neurological deficit. Is moving all 4 extremities symmetrically. No seizure activity has been noted. Blood gases to follow. The chest x-ray showing CHF and cardiomegaly and tiny small bilateral pleural effusion. The patient needs to go on daily Lasix doses 40 mg every 12 hours. The blood work from today shows a serum bicarb of 41 with a BUN of 27 and a creatinine of 0.9. Objective - Vital Signs Vital signs: Vital Signs Temp 98.7 F 08/22/20 06:21 Pulse 92 04/12/21 08:04 Resp 20 08/22/20 08:00 BP 188/77 08/22/20 06:21 Pulse Ox 98 08/22/20 06:21 Intake & Output 08/21/20 08/22/20 08/22/20 18:59 06:59 18:59 Weight 161 kg Other: Voiding Method Urinal Urinal # Voids 1 - Exam GENERAL EXAM: Alert, pleasant, 60-year-old white male, on 8 L of oxygen with a pulse ox of 94%, comfortable in no apparent distress. The patient was also given 100% nonrebreather facemask at a time of his diminished level of consciousness. HEAD: Normocephalic/atraumatic. EYES: Normal reaction of pupils, equal size. Conjunctiva pink, sclera white. NOSE: Clear with pink turbinates. THROAT: No erythema or exudates. NECK: No masses, no JVD, no thyroid enlargement, no adenopathy. CHEST: No chest wall deformity. Symmetrical expansion. LUNGS: Equal air entry with diffuse crackles CVS: Regular rate and rhythm, normal S1 and S2, no gallops, no murmurs, no rubs ABDOMEN: Soft, nontender. No hepatosplenomegaly, normal bowel sounds, no guarding or rigidity. EXTREMITIES: No clubbing, mild lower extremity edema no cyanosis, 2+ pulses and upper and lower extremities. MUSCULOSKELETAL: Muscle strength and tone normal. SPINE: No scoliosis or deformity SKIN: No rashes CENTRAL NERVOUS SYSTEM: Alert and oriented -3. No focal deficits, tone is normal in all 4 extremities. PSYCHIATRIC: Alert and oriented -3. Appropriate affect. Intact judgment and insight. - Labs CBC & Chem 7: 08/20/20 07:44 08/22/20 05:35 Labs: Abnormal Lab Results - Last 24 Hours (Table) 08/21/20 08/22/20 08/22/20 Range/Units 16:24 05:35 06:55 Chloride 90 L (98-107) mmol/L Carbon Dioxide 41 H* (22-30) mmol/L BUN 27 H (9-20) mg/dL POC Glucose (mg/dL) 104 H 113 H (75-99) mg/dL 08/22/20 Range/Units 11:29 Chloride (98-107) mmol/L Carbon Dioxide (22-30) mmol/L BUN (9-20) mg/dL POC Glucose (mg/dL) 124 H (75-99) mg/dL Assessment and Plan Plan: #1. Acute on chronic hypoxemic respiratory failure related to acute exacerbation of COPD, and possibly mild fluid overload, negative for COVID 19 100 patient also has chronic hypoxic and hypercapnic respiratory failure in addition to obstructive sleep apnea and possibly obesity events hypoventilation syndrome The patient was quite hypoxic. The patient was somnolent and sleepy at a time it my evaluation. The patient was immediately placed back on his original BiPAP machine. Blood gases to be followed. Chest x-rays also to follow. #2. Elevated d-dimer with questionable filling defect in left upper lobe pulmonary artery subsegmental branches, possibly a small pulmonary embolism, and patient was started on Xarelto #3. History of COPD, on home oxygen usually wears 4 L on a regular basis #4. History of obstructive sleep apnea noncompliant with CPAP #5. Chronic cor pulmonale #6. Former smoker #7. Chronic back pain #8. Chronic hypercapnic respiratory failure related to underlying COPD #9. Hyperkalemia, potassium is 5.7 on today's labs, potassium level improved and the patient is currently having some metabolic alkalosis. Plan: Restart VPAP at a pressure minimal 4 maximum of 25 with a pressure support of 4 Titrate FiO2 to his BiPAP machine to maintain a saturation above 90% Continue IV Lasix Obtain a blood gas Monitor mental status and anticipate some improvement in his mentation with BiPAP therapy Monitor electrolytes continue Xarelto We'll continue to follow
[2020-08-22 12:08] LABS: ABG Base Excess 18.3 mmol/L; ABG Oxygen Saturation 94.5 % (94-97); ABG PH 7.33 (7.35-7.45); ABG PO2 80 mmHg (83-108); ABG TCO2 47 mmol/L (19-24); Allen Test Performed? Yes
[2020-08-22 12:12] LABS: ABG PCO2 84 mmHg (35-45)
[2020-08-22 12:13] LABS: ABG HCO3 44 mmol/L (21-25)
[2020-08-22 16:53] LABS: Glucose,Whole Blood 103 mg/dL (75-99)
[2020-08-22 20:09] LABS: Glucose,Whole Blood 103 mg/dL (75-99)
[2020-08-22] MEDS: HYDROcodone/APAP 10-325MG 1 EACH TAB PO PRN (20:44)
[2020-08-22] MEDS: GABAPENTIN 300 MG CAP PO SCH (23:48)
[2020-08-23 06:55] LABS: Glucose,Whole Blood 94 mg/dL (75-99)
[2020-08-23] MEDS: BUDESONIDE 1 MG/2 ML NEBU INHALATION SCH ×2 (08:13→20:04)
[2020-08-23] MEDS: INSULIN ASPART (NovoLOG) 100 UNIT/ML VIAL SQ SCH ×4 (08:13→21:12)
[2020-08-23] MEDS: IPRATROPIUM-ALBUTEROL 3 ML NEB INHALATION SCH ×4 (08:13→20:04)
[2020-08-23] MEDS: FORMOTEROL FUMARATE 20 MCG/2 ML NEBU INHALATION SCH ×2 (08:13→20:04)
[2020-08-23] MEDS: FUROSEMIDE 10 MG/ML 4 ML VIAL IV SCH (08:26)
[2020-08-23] MEDS: RIVAROXABAN 15 MG TAB PO SCH ×2 (08:27→17:54)
[2020-08-23] MEDS: predniSONE 20 MG TAB PO SCH (08:27)
[2020-08-23 11:30] LABS: Glucose,Whole Blood 133 mg/dL (75-99)
--- NOTE | 2020-08-23 12:13 | P.PN ---
Subjective Progress Note Date: 08/23/20 This is 60-year-old white male patient was known to our practice from previous admissions related to complications secondary to COPD, underlying obstructive sleep apnea and chronic diastolic congestive heart failure, patient follows with Dr. Goff in the office. He normally wears 4 L of oxygen on a regular basis, he does have underlying history of obstructive sleep apnea, he recently received a new device 2 months ago however it is still sitting on his stable and he has not worn it. He states he is claustrophobic, he is trying to gradually start wearing it for several hours at a time. Denies any fever or chills, he was more confused at home, his having a mild cough, and at times producing some yellow phlegm. His chest x-ray showed bilateral infiltrates, his d-dimer was 1.27, and CTA chest was completed showing to multiple filling defects in the left upper lobe pulmonary artery subsegmental branches and acute embolus could not be entirely excluded. There were diffuse bilateral groundglass opacities with mild patchy areas in the upper lobes similar to the prior CT, and small bilateral pleural effusions with adjacent small consolidations. Patient has history of chronic diastolic CHF, however he denies any worsening swelling in his lower extremities, he takes Lasix on a regular basis 40 mg daily, however his states his abdomen seems to be more distended. His labs have been reviewed, CBC on admission was within normal limits, d-dimer was 1.7 as mentioned above, sodium is 140, potassium is 5.4, chloride was 93, CO2 is 44, B1 is 11 creatinine 0.58, LFTs were within normal limits, BNP was 123, troponin was 0.027. COVID 19 was negative. Patient was started on IV steroids, breathing treatments. Echocardiogram shows left ventricular systolic function with an EF of 55-60%, mildly enlarged right ventricle, mild MR, mild TR, mild pulmonary hypertension, and PA systolic of 35.5 mmHg. At the time of my evaluation he is up in the chair, is currently on 10 L of oxygen pulse ox is 90%, he seems to be comfortable, lung sounds reveal diffuse crackles bilaterally, mild swelling in his lower extremities. On 08/19/2020 patient seen in follow-up on medical surgical floor, still remains on high flow oxygen currently at 12 L, and pulse ox is 94% subsequently his FiO2 was cut back to 10 L. Patient is continuing to refuse CPAP, his states that she will not even bring it and because she knows for sure that the patient will not wear it. he is up to the bathroom, tolerated ambulation fairly well, he is awake and alert, no altered mentation, he is answering questions appropriately, he is afebrile, does get exertional dyspnea, recovers. No repeat chest x-ray today, echocardiogram of 55-60% LV function, with moderate concentric LVH. Mild pulmonary hypertension with right-sided pressures of 35.5 mmHg. On 08/21/2020 patient seen in follow-up on medical surgical floor, he is currently on 8 L of oxygen pulse ox is 91%, last night he was having increasing confusion and agitation, and his Solu-Medrol was switched over to prednisone, he continues on several tone, he did wear his CPAP last night for 4 hours, and ambulating to the bathroom, still has lower extremity edema, he was given a dose of 20 mg of Lasix yesterday, he continues on breathing treatments, obtain follow-up chest x-ray in the morning. No acute events overnight. No chest pain. 08/22/2020 the patient is being seen for a follow-up. The patient became obtunded and lethargic and hard to arouse. I think he went into acute hypercapnic respiratory failure. He has a VPAP are that is sitting at his bedside which is set at a pressure minimal for a maximum of 25 with a pressure support of 14 I checked the compliance data from his machine and the patient has been barely using the machine over the past month. He currently has a Quintanilla catheter. He was being all over the place while being on IV Lasix. He is also on IV Solu-Medrol. He is arousable. He goes back to sleep and he snores quite loudly when left unstimulated. No focal neurological deficit. Is moving all 4 extremities symmetrically. No seizure activity has been noted. Blood gases to follow. The chest x-ray showing CHF and cardiomegaly and tiny small bilateral pleural effusion. The patient needs to go on daily Lasix doses 40 mg every 12 hours. The blood work from today shows a serum bicarb of 41 with a BUN of 27 and a creatinine of 0.9. On today's evaluation of 08/23/2020 the patient is wide awake. His mental status improved completely and he is back to normal. His communicating and is very argumentative. He is still on VPAP. I do not see that he uses overnight. Based on the compliance data, the patient has used the machine only 4 hours yesterday he remains on IV Lasix. He is a negative fluid balance. He was on IV Solu-Medrol and he was switched to a prednisone burst taper. The blood. This was done yesterday showed a chronic hypercapnic respiratory failure with a pH of 7.33 with a pCO2 of 84 and pO2 of 80 and this blood gas was done while him being on BiPAP. The chest x-ray was showing smaller lung volumes. No evidence of any infiltration or pneumonia. He is tolerating his diet. No nausea. No vomiting. No diarrhea. No abdominal pain. Objective - Vital Signs Vital signs: Vital Signs Temp 98.6 F 08/23/20 07:14 Pulse 82 08/23/20 11:56 Resp 20 08/23/20 07:14 BP 174/80 08/23/20 07:14 Pulse Ox 94 L 08/23/20 07:14 Intake & Output 08/22/20 08/23/20 08/23/20 18:59 06:59 18:59 Output Total 1999 3400 Balance -1999 -3400 Weight 140.5 kg Output: Urine 1999 3400 Other: Voiding Method Indwelling Catheter # Voids 1 - Exam GENERAL EXAM: Alert, pleasant, 60-year-old white male, on 6 L of oxygen by nasal cannula HEAD: Normocephalic/atraumatic. EYES: Normal reaction of pupils, equal size. Conjunctiva pink, sclera white. NOSE: Clear with pink turbinates. THROAT: No erythema or exudates. NECK: No masses, no JVD, no thyroid enlargement, no adenopathy. CHEST: No chest wall deformity. Symmetrical expansion. LUNGS: Equal air entry with diffuse crackles CVS: Regular rate and rhythm, normal S1 and S2, no gallops, no murmurs, no rubs ABDOMEN: Soft, nontender. No hepatosplenomegaly, normal bowel sounds, no guarding or rigidity. EXTREMITIES: No clubbing, mild lower extremity edema no cyanosis, 2+ pulses and upper and lower extremities. MUSCULOSKELETAL: Muscle strength and tone normal. SPINE: No scoliosis or deformity SKIN: No rashes CENTRAL NERVOUS SYSTEM: Alert and oriented -3. No focal deficits, tone is normal in all 4 extremities. PSYCHIATRIC: Alert and oriented -3. Appropriate affect. Intact judgment and insight. - Labs CBC & Chem 7: 08/20/20 07:44 08/22/20 05:35 Labs: Abnormal Lab Results - Last 24 Hours (Table) 08/22/20 08/22/20 08/22/20 Range/Units 12:03 16:48 20:08 ABG pH 7.33 L (7.35-7.45) ABG pCO2 84 H* (35-45) mmHg ABG pO2 80 L (83-108) mmHg ABG HCO3 44 H* (21-25) mmol/L ABG Total CO2 47 H (19-24) mmol/L POC Glucose (mg/dL) 103 H 103 H (75-99) mg/dL 08/23/20 Range/Units 11:27 ABG pH (7.35-7.45) ABG pCO2 (35-45) mmHg ABG pO2 (83-108) mmHg ABG HCO3 (21-25) mmol/L ABG Total CO2 (19-24) mmol/L POC Glucose (mg/dL) 133 H (75-99) mg/dL Assessment and Plan Plan: #1. Acute on chronic hypoxemic respiratory failure related to acute exacerbation of COPD, and possibly mild fluid overload, negative for COVID 19, the patient had CO2 narcosis yesterday and this was treated with a BiPAP and currently his mental status is improved. His blood gases from yesterday showing chronic hypercapnic respiratory failure. He remains on a combination of diure tics and bronchodilators and steroids. He is currently on a prednisone burst taper. He remains on IV Lasix. He is utilizing his BiPAP on and off and he is to wear a cast the overnight. #2. Elevated d-dimer with questionable filling defect in left upper lobe pulmonary artery subsegmental branches, possibly a small pulmonary embolism, and patient was started on Xarelto #3. History of COPD, on home oxygen usually wears 4 L on a regular basis #4. History of obstructive sleep apnea noncompliant with CPAP #5. Chronic cor pulmonale #6. Former smoker #7. Chronic back pain #8. Chronic hypercapnic respiratory failure related to underlying COPD #9. Hyperkalemia, potassium is 5.7 on today's labs, potassium level improved and the patient is currently having some metabolic alkalosis. Plan: Continue using VPAP at a pressure minimal 4 maximum of 25 with a pressure support of 4 Titrate FiO2 to his BiPAP machine to maintain a saturation above 90%, currently on 6 L Continue IV Lasix Prednisone burst taper Monitor mental status and he has improvement in his mentation with BiPAP therapy Monitor electrolytes continue Scott We'll continue to follow
[2020-08-23 12:48] LABS: African American GFR (CKD) >90 (>60 ml/min/1.73 sqM); Anion Gap 6 mmol/L; Blood Urea Nitrogen 19 mg/dL (9-20); Calcium 8.6 mg/dL (8.4-10.2); Carbon Dioxide 39 mmol/L (22-30); Chloride 90 mmol/L (98-107); Glucose 91 mg/dL (74-99); Non-African American GFR(CKD) >90 (>60 ml/min/1.73 sqM); Potassium 3.5 mmol/L (3.5-5.1); Sodium 135 mmol/L (137-145)
[2020-08-23 16:48] LABS: Glucose,Whole Blood 116 mg/dL (75-99)
--- NOTE | 2020-08-23 17:04 | PN ---
PROGRESS NOTE DATE OF SERVICE: 08/22/2020 This is a 60-year-old white male. He is still having periods of encephalopathy and confusion when he takes off his oxygen. He is saturating on 6 to 9 L in low to mid 90s. He has refused to wear his BiPAP. He remains on blood thinners to treat subsegmental PE. CARDIOVASCULAR: S1, S2. LUNGS: Scattered rhonchi and wheeze. NEUROLOGIC: Cranial nerves are intact. PSYCH: He appears sleepy, lethargic and saying stuff that is not true, off the wall kind of type things at time. ASSESSMENT: 1. Acute hypoxemic respiratory distress. 2. Chronic carbon dioxide narcosis. 3. Chronic obstructive pulmonary disease exacerbation. 4. Subsegmental pulmonary embolism. Continue with Xarelto. Get him off steroids due to confusion. Switch him to oral. IV fluids. Wait for Pulmonary's recommendations. MMODL / IJN: [id number] /
[2020-08-23] MEDS: HYDROcodone/APAP 10-325MG 1 EACH TAB PO PRN (17:54)
[2020-08-23 20:46] LABS: Glucose,Whole Blood 130 mg/dL (75-99)
[2020-08-23] MEDS: GABAPENTIN 300 MG CAP PO SCH (22:50)
[2020-08-24 07:05] LABS: Glucose,Whole Blood 110 mg/dL (75-99)
[2020-08-24 08:02] LABS: Basophils % (A) 0 %; Eosinophils # (A) 0.2 k/uL (0-0.7); Eosinophils % (A) 2 %; HGB 14.7 gm/dL (13.0-17.5); Lymphocytes # (A) 1.9 k/uL (1.0-4.8); Lymphocytes % (A) 17 %; MCH 29.8 pg (25.0-35.0); MCHC 32.7 g/dL (31.0-37.0); MCV 91.3 fL (80.0-100.0); Mean Platelet Volume 7.6; Monocytes # (A) 1.1 k/uL (0-1.0); Monocytes % (A) 10 %; Neutrophils # (A) 7.6 k/uL (1.3-7.7); Neutrophils % (A) 70 %; Platelet Count 255 k/uL (150-450); RBC 4.93 m/uL (4.30-5.90); RDW 13.2 % (11.5-15.5); WBC 10.9 k/uL (3.8-10.6)
[2020-08-24] MEDS: INSULIN ASPART (NovoLOG) 100 UNIT/ML VIAL SQ SCH ×3 (08:02→16:55)
[2020-08-24 08:09] VITALS: BP 155/80
[2020-08-24] MEDS: predniSONE 20 MG TAB PO SCH (08:14)
[2020-08-24] MEDS: RIVAROXABAN 15 MG TAB PO SCH ×2 (08:14→17:22)
[2020-08-24] MEDS: FUROSEMIDE 10 MG/ML 4 ML VIAL IV SCH (08:14)
[2020-08-24] MEDS: HYDROcodone/APAP 10-325MG 1 EACH TAB PO PRN (08:22)
[2020-08-24] MEDS: IPRATROPIUM-ALBUTEROL 3 ML NEB INHALATION SCH ×3 (09:12→17:13)
[2020-08-24] MEDS: FORMOTEROL FUMARATE 20 MCG/2 ML NEBU INHALATION SCH (09:12)
[2020-08-24] MEDS: BUDESONIDE 1 MG/2 ML NEBU INHALATION SCH (09:12)
[2020-08-24 09:15] VITALS: RESP 18
[2020-08-24 11:46] LABS: Glucose,Whole Blood 109 mg/dL (75-99)
--- NOTE | 2020-08-24 11:50 | XR ---
EXAMINATION TYPE: XR chest 1V portable DATE OF EXAM: 08/24/2020 COMPARISON: 08/23/2019 INDICATION: CHF TECHNIQUE: Single frontal view of the chest is obtained. FINDINGS: The heart size is normal. The pulmonary vasculature is normal. Mild bibasilar infiltrates present. Findings are improving. IMPRESSION: 1. Mild bibasilar infiltrates which are nonspecific. Atelectasis may be within the differential. Reso lving congestive heart failure and atypical pulmonary edema could be considered.
[2020-08-24 14:19] VITALS: PULSE 82; TEMP 99.2
--- NOTE | 2020-08-24 14:31 | P.PN ---
Subjective Progress Note Date: 08/24/20 Principal diagnosis: Acute on chronic hypoxic respiratory failure related to COPD This is 60-year-old white male patient was known to our practice from previous admissions related to complications secondary to COPD, underlying obstructive sleep apnea and chronic diastolic congestive heart failure, patient follows with Dr. Goff in the office. He normally wears 4 L of oxygen on a regular basis, he does have underlying history of obstructive sleep apnea, he recently received a new device 2 months ago however it is still sitting on his stable and he has not worn it. He states he is claustrophobic, he is trying to gradually start wearing it for several hours at a time. Denies any fever or chills, he was more confused at home, his having a mild cough, and at times producing some yellow phlegm. His chest x-ray showed bilateral infiltrates, his d-dimer was 1.27, and CTA chest was completed showing to multiple filling defects in the left upper lobe pulmonary artery subsegmental branches and acute embolus could not be entirely excluded. There were diffuse bilateral groundglass opacities with mild patchy areas in the upper lobes similar to the prior CT, and small bilateral pleural effusions with adjacent small consolidations. Patient has history of chronic diastolic CHF, however he denies any worsening swelling in his lower extremities, he takes Lasix on a regular basis 40 mg daily, however his states his abdomen seems to be more distended. His labs have been reviewed, CBC on admission was within normal limits, d-dimer was 1.7 as mentioned above, s odium is 140, potassium is 5.4, chloride was 93, CO2 is 44, B1 is 11 creatinine 0.58, LFTs were within normal limits, BNP was 123, troponin was 0.027. COVID 19 was negative. Patient was started on IV steroids, breathing treatments. Echocardiogram shows left ventricular systolic function with an EF of 55-60%, mildly enlarged right ventricle, mild MR, mild TR, mild pulmonary hypertension, and PA systolic of 35.5 mmHg. At the time of my evaluation he is up in the chair, is currently on 10 L of oxygen pulse ox is 90%, he seems to be comfortable, lung sounds reveal diffuse crackles bilaterally, mild swelling in his lower extremities. On 08/19/2020 patient seen in follow-up on medical surgical floor, still remains on high flow oxygen currently at 12 L, and pulse ox is 94% subsequently his FiO2 was cut back to 10 L. Patient is continuing to refuse CPAP, his states that she will not even bring it and because she knows for sure that the patient will not wear it. he is up to the bathroom, tolerated ambulation fairly well, he is awake and alert, no altered mentation, he is answering questions appropriately, he is afebrile, does get exertional dyspnea, recovers. No repeat chest x-ray today, echocardiogram of 55-60% LV function, with moderate concentric LVH. Mild pulmonary hypertension with right-sided pressures of 35.5 mmHg. On 08/21/2020 patient seen in follow-up on medical surgical floor, he is currently on 8 L of oxygen pulse ox is 91%, last night he was having increasing confusion and agitation, and his Solu-Medrol was switched over to prednisone, he continues on several tone, he did wear his CPAP last night for 4 hours, and ambulating to the bathroom, still has lower extremity edema, he was given a dose of 20 mg of Lasix yesterday, he continues on breathing treatments, obtain follow-up chest x-ray in the morning. No acute events overnight. No chest pain. On 08/24/2020 patient seen in follow-up, doing much better today, on 2 L of oxygen and the pulse ox of 94%, afebrile, he is much more alert and awake today, patient has been diuresing, net fluid balance is difficult to estimate as the patient has been using the urinal, there is no weight in the computer from today. Awake and alert, no agitation, no confusion, he has been wearing his BiPAP support. He is being considered for discharge home today, no acute events overnight, no cognitive chest pain, lung sounds are diminished, no rhonchi or wheezing. Objective - Vital Signs Vital signs: Vital Signs Temp 98.0 F 08/24/20 08:07 Pulse 91 08/24/20 11:43 Resp 18 08/24/20 11:43 BP 155/80 08/24/20 08:07 Pulse Ox 91 L 08/24/20 09:14 Intake & Output 08/23/20 08/24/20 08/24/20 18:59 06:59 18:59 Intake Total 400 Output Total 4400 985 1700 Balance -4400 -985 -1300 Weight 135.5 kg Intake: Oral 400 Output: Urine 4400 985 1700 Other: Voiding Method External Catheter - Exam GENERAL EXAM: Alert, pleasant, 60-year-old white male, on 2 L of oxygen with a pulse ox of 94%, comfortable in no apparent distress. HEAD: Normocephalic/atraumatic. EYES: Normal reaction of pupils, equal size. Conjunctiva pink, sclera white. NOSE: Clear with pink turbinates. THROAT: No erythema or exudates. NECK: No masses, no JVD, no thyroid enlargement, no adenopathy. CHEST: No chest wall deformity. Symmetrical expansion. LUNGS: Equal air entry with diffuse crackles CVS: Regular rate and rhythm, normal S1 and S2, no gallops, no murmurs, no rubs ABDOMEN: Soft, nontender. No hepatosplenomegaly, normal bowel sounds, no guarding or rigidity. EXTREMITIES: No clubbing, mild lower extremity edema no cyanosis, 2+ pulses and upper and lower extremities. MUSCULOSKELETAL: Muscle strength and tone normal. SPINE: No scoliosis or deformity SKIN: No rashes CENTRAL NERVOUS SYSTEM: Alert and oriented -3. No focal deficits, tone is normal in all 4 extremities. PSYCHIATRIC: Alert and oriented -3. Appropriate affect. Intact judgment and insight. - Labs CBC & Chem 7: 08/24/20 07:10 08/23/20 04:28 Labs: Abnormal Lab Results - Last 24 Hours (Table) 08/23/20 08/23/20 08/24/20 Range/Units 16:46 20:39 07:03 WBC (3.8-10.6) k/uL Monocytes # (0-1.0) k/uL POC Glucose (mg/dL) 116 H 130 H 110 H (75-99) mg/dL 08/24/20 08/24/20 Range/Units 07:10 11:33 WBC 10.9 H (3.8-10.6) k/uL Monocytes # 1.1 H (0-1.0) k/uL POC Glucose (mg/dL) 109 H (75-99) mg/dL Assessment and Plan Plan: Assessment: #1. Acute on chronic hypoxemic respiratory failure related to acute exacerbation of COPD, and possibly mild fluid overload, negative for COVID 19 #2. Elevated d-dimer with questionable filling defect in left upper lobe pulmonary artery subsegmental branches, possibly a small pulmonary embolism, and patient was started on Xarelto #3. History of COPD, on home oxygen usually wears 4 L on a regular basis #4. History of obstructive sleep apnea noncompliant with CPAP #5. Chronic cor pulmonale #6. Former smoker #7. Chronic back pain #8. Chronic hypercapnic respiratory failure related to underlying COPD #9. Hyperkalemia, potassium is 5.7 on today's labs, down to 4.7 after after Kayexalate today Plan: Patient is doing well, his been diuresed, breathing easier, FiO2 is down to 4 L, patient has been again educated on importance of compliance with the BiPAP device, prescription was given to discharge planning for a new BiPAP mask. Patient will need Lasix 40 mg on a daily basis upon admission, he states that he has it at home. He can continue on his usual inhalers, he can complete outpatient taper of prednisone, follow up with Dr. Goff in the office in one to 2 weeks. I performed a history & physical examination of the patient and discussed their management with my nurse practitioner, Sumaya Mohan. I reviewed the nurse practitioner's note and agree with the documented findings and plan of care. Lung sounds are positive for bilateral crackles. The findings and the impression was discussed with the patient. I attest to the documentation by the nurse practitioner. Time with Patient: Less than 30
[2020-08-24 14:49] VITALS: BMI 44.1
--- NOTE | 2020-08-24 16:14 | PN ---
PROGRESS NOTE A 60-year-old white male with acute on chronic hypoxemic respiratory failure secondary to COPD, possible subsegmental pulmonary embolism. He is down to 2 L saturating 94. He is much more alert and awake today. Fluid balance is down. He has been wearing his BiPAP. He had no events overnight. Possible discharge home today. PHYSICAL EXAMINATION: Blood pressure 155/80, temperature 98, pulse 71, respiratory 18. ENDOCRINE: BMI is over 40. CARDIOVASCULAR: S1, S2. LUNGS: Clear. GI: Soft, distended, obesity. EXTREMITIES: Third spacing due to morbid obesity. PSYCH: Fair mood and affect. LABS: Labs are reviewed. White count is 10.9, hemoglobin is 14.7. Sodium 135, potassium 3.5. ASSESSMENT: 1. Acute on chronic hypoxemic respiratory failure secondary to chronic obstructive pulmonary disease. 2. Mild fluid overload. 3. Negative for COVID-19. 4. Elevated D-dimer. 5. Possible subsegmental pulmonary embolism. 6. Chronic obstructive pulmonary disease. 7. Hypercapnic respiratory failure. 8. Cor pulmonale. 9. Former smoker. 10.Chronic back pain. 11.Hyperkalemia. The patient is doing well. Breathing easier on diuresis. Oxygen levels down to 2-4 L. Compliance with his BiPAP machine. He is getting a new mask for BiPAP on discharge. Lasix at home will be continued. Continue on inhalers. Will possibly discharge him home today. MMODL / IJN: [id number] /
[2020-08-25] MEDS ORDERED: FUROSEMIDE 40 MG TAB PO SCH (09:00)
== END 2020-08-24 17:28 | disposition home or self-care (01) | DRG 190 ==
LOC: EC 17:54 → 4SSUR 21:06
PROVIDERS: ADMIT Family Medicine; ATTEND Family Medicine
PROC: 5A0935A Assistance with Respiratory Ventilation, Less than 24 Consecutive Hours, High Flow/Velocity Cannula (ICD-10-PCS; principal; 2020-08-19)
DX: J44.1 Chronic obstructive pulmonary disease with (acute) exacerbation (principal); J96.21 Acute and chronic respiratory failure with hypoxia; J96.22 Acute and chronic respiratory failure with hypercapnia; I26.93 Single subsegmental thrombotic pulmonary embolism without acute cor pulmonale; Z68.41 Body mass index [BMI] 40.0-44.9, adult; I50.32 Chronic diastolic (congestive) heart failure; G93.40 Encephalopathy, unspecified; Z87.01 Personal history of pneumonia (recurrent); Z20.822 Contact with and (suspected) exposure to COVID-19; Z87.891 Personal history of nicotine dependence; Z82.5 Family history of asthma and other chronic lower respiratory diseases; Z82.49 Family history of ischemic heart disease and other diseases of the circulatory system; E66.01 Morbid (severe) obesity due to excess calories; G47.33 Obstructive sleep apnea (adult) (pediatric); G89.29 Other chronic pain; M54.9 Dorsalgia, unspecified; I27.81 Cor pulmonale (chronic); E87.5 Hyperkalemia; Z99.81 Dependence on supplemental oxygen; Z79.01 Long term (current) use of anticoagulants; I27.29 Other secondary pulmonary hypertension; Z91.19 Patient's noncompliance with other medical treatment and regimen; F40.240 Claustrophobia
CPT/HCPCS: 36415; 36600; 71045; 71046; 71275; 80048; 80053; 82805; 83605; 83735; 83880; 84484; 85025; 85379; 85610; 85730; 87635; 93005; 93306; 93970; 94640; 94660; 94760; 96374; 99285

== ENCOUNTER 2021-10-12 20:54 | Emergency (ER) | payer MEDICARE ==
[2021-10-12 21:01] VITALS: TEMP 98.6
--- NOTE | 2021-10-12 21:20 | ED ---
General Adult HPI - General Chief complaint: Nausea/Vomiting/Diarrhea Stated complaint: Shortness of Breath Time Seen by Provider: 10/12/21 21:09 Source: patient, EMS Mode of arrival: EMS Limitations: no limitations - History of Present Illness Initial comments: 's patient is a 61-year-old man who arrives by ambulance to be evaluated for not feeling well. The patient states this goes back a number of days. He started having some "upset stomach" and also some diarrhea. He is having 2-3 bowel movements a day. No blood or dark tarry stool. He saw Dr. Mukherjee last week and states she was told to go to the hospital if he was not feeling any better. Patient is not having improvement so he presents here. He denies abdominal pain. He has had some nausea but no vomiting. There is no chest pain. No shortness of breath but he states he is always a little short of breath and uses oxygen at home. He does believe that things were made worse by recent move from his previous residence into a hotel. Patient denies cough. No fever or chills. No increase in his leg swelling. No leg pains. -: days(s) Location: abdomen Severity scale (1-10): 0 Consistency: constant Improves with: none Worsens with: none Associated Symptoms: nausea/vomiting, other (Diarrhea) Treatments Prior to Arrival: none - Related Data Home Medications Medication Instructions Recorded Confirmed Hydrocodone/Acetaminophen [[place] 1 tab PO TID 10/14/17 10/12/21 10-325] Potassium Chloride [Klor-Con 20] 20 meq PO DAILY 05/29/21 10/12/21 Terbinafine [LamISIL] 250 mg PO DAILY 05/29/21 10/12/21 predniSONE [Deltasone] 20 mg PO BID 05/29/21 10/12/21 Ciprofloxacin HCl [Cipro] 500 mg PO BID 10/12/21 10/12/21 Dulaglutide [Trulicity] 1.5 mg SQ SA 10/12/21 10/12/21 Erythromycin Ophth Oint (1 gm) 1 applic RIGHT EYE BID 10/12/21 10/12/21 [Ilotycin Ophth Oint (1 gm)] Omeprazole 40 mg PO DAILY 10/12/21 10/12/21 Previous Rx's Medication Instructions Recorded Furosemide [Lasix] 40 mg PO DAILY 90 Days #90 tab 08/24/20 Ipratropium-Albuterol Nebulize 3 ml INHALATION RT-Q2H PRN 30 Days 05/30/21 [Duoneb 0.5 mg-3 mg/3 ml Soln] #120 ml Allergies Allergy/AdvReac Type Severity Reaction Status Date / Time No Known Allergies Allergy Verified 10/12/21 22:41 Review of Systems ROS Statement: Those systems with pertinent positive or pertinent negative responses have been documented in the HPI. ROS Other: All systems not noted in ROS Statement are negative. Constitutional: Denies: fever, chills, weakness Respiratory: Denies: cough, dyspnea Cardiovascular: Reports: edema (Chronic). Denies: chest pain, palpitations, syncope Gastrointestinal: Reports: nausea, diarrhea. Denies: abdominal pain, vomiting, constipation, melena, hematochezia Genitourinary: Denies: dysuria, hematuria Musculoskeletal: Denies: back pain Skin: Denies: rash Neurological: Denies: headache, weakness Past Medical History Past Medical History: COPD, Pneumonia Additional Past Medical History / Comment(s): Pt states prior to today, he was never diagnosed with copd, pneumonia 20 yrs ago, chronic back pain, R arm numbness/tingling and also involves R shoulder. History of Any Multi-Drug Resistant Organisms: None Reported Additional Past Surgical History / Comment(s): Colonoscopies with benign polypectomy, back injections. Past Anesthesia/Blood Transfusion Reactions: No Reported Reaction Past Psychological History: No Psychological Hx Reported Smoking Status: Former smoker Past Alcohol Use History: None Reported Past Drug Use History: None Reported - Past Family History Father Family Medical History: COPD Additional Family Medical History / Comment(s): Father of copd at the age of 69yrs. He was a smoker. Mother Family Medical History: COPD, Hypertension Additional Family Medical History / Comment(s): Mother at the age of 78yrs. General Exam Limitations: no limitations General appearance: alert, in no apparent distress Head exam: Present: atraumatic, normocephalic Eye exam: Present: normal appearance. Absent: scleral icterus, conjunctival injection ENT exam: Present: mucous membranes dry Neck exam: Present: normal inspection, full ROM Respiratory exam: Present: normal lung sounds bilaterally, other (There is mild tachypnea). Absent: respiratory distress, wheezes, rales, rhonchi, stridor Cardiovascular Exam: Present: regular rate, normal rhythm, normal heart sounds. Absent: systolic murmur, diastolic murmur, rubs, gallop GI/Abdominal exam: Present: soft. Absent: distended, tenderness, guarding, rebound, rigid, mass Extremities exam: Present: normal inspection, normal capillary refill, pedal edema (Trace edema at the ankles bilaterally). Absent: calf tenderness Back exam: Present: normal inspection. Absent: CVA tenderness (R), CVA tenderness (L) Neurological exam: Present: alert Skin exam: Present: warm, dry, intact, normal color. Absent: rash Course Vital Signs 10/12/21 10/12/21 10/12/21 20:55 22:01 23:00 Temperature 98.6 F Pulse Rate 85 79 87 Respiratory 24 20 22 Rate Blood Pressure 142/72 130/81 147/75 O2 Sat by Pulse 90 L 92 L 88 L Oximetry Medical Decision Making - Medical Decision Making Patient's 61-year-old man who complained of having upset stomach and diarrhea. On reevaluation, when his studies are returned I went and evaluated him and he states "I feel great," and he requested to go home. The changes to the patient's venous blood gas appear to be for most part chronic. All of his labs do appear more or less at his baseline. We discussed appropriate further care and follow-up. - Lab Data Result diagrams: 10/12/21 21:18 10/12/21 23:00 Lab Results 10/12/21 10/12/21 10/12/21 Range/Units 21:18 21:18 21:18 WBC 10.5 (3.8-10.6) k/uL RBC 4.37 (4.30-5.90) m/uL Hgb 12.5 L (13.0-17.5) gm/dL Hct 43.7 (39.0-53.0) % MCV 99.9 (80.0-100.0) fL MCH 28.6 (25.0-35.0) pg MCHC 28.6 L (31.0-37.0) g/dL RDW 13.1 (11.5-15.5) % Plt Count 275 (150-450) k/uL MPV 7.7 Neutrophils % 81 % Lymphocytes % 10 % Monocytes % 7 % Eosinophils % 1 % Basophils % 0 % Neutrophils # 8.5 H (1.3-7.7) k/uL Lymphocytes # 1.1 (1.0-4.8) k/uL Monocytes # 0.7 (0-1.0) k/uL Eosinophils # 0.1 (0-0.7) k/uL Basophils # 0.1 (0-0.2) k/uL Hypochromasia Marked PT 10.1 (9.0-12.0) sec INR 0.9 (<1.2) APTT 23.7 (22.0-30.0) sec VBG pH (7.31-7.41) VBG pCO2 (37-51) mmHg VBG HCO3 (24-28) mmol/L Sodium (137-145) mmol/L Potassium (3.5-5.1) mmol/L Chloride (98-107) mmol/L Carbon Dioxide (22-30) mmol/L Anion Gap mmol/L BUN (9-20) mg/dL Creatinine (0.66-1.25) mg/dL Est GFR (CKD-EPI)AfAm (>60 ml/min/1.73 sqM) Est GFR (CKD-EPI)NonAf (>60 ml/min/1.73 sqM) Glucose (74-99) mg/dL Plasma Lactic Acid Km (0.7-2.0) mmol/L Calcium (8.4-10.2) mg/dL Total Bilirubin (0.2-1.3) mg/dL AST (17-59) U/L ALT (4-49) U/L Alkaline Phosphatase (38-126) U/L Troponin I 0.014 (0.000-0.034) ng/mL NT-Pro-B Natriuret Pep pg/mL Total Protein (6.3-8.2) g/dL Albumin (3.5-5.0) g/dL Serum Alcohol mg/dL C. difficile (EIA) Intrp (Negative) 10/12/21 10/12/21 10/12/21 Range/Units 21:18 21:24 21:49 WBC (3.8-10.6) k/uL RBC (4.30-5.90) m/uL Hgb (13.0-17.5) gm/dL Hct (39.0-53.0) % MCV (80.0-100.0) fL MCH (25.0-35.0) pg MCHC (31.0-37.0) g/dL RDW (11.5-15.5) % Plt Count (150-450) k/uL MPV Neutrophils % % Lymphocytes % % Monocytes % % Eosinophils % % Basophils % % Neutrophils # (1.3-7.7) k/uL Lymphocytes # (1.0-4.8) k/uL Monocytes # (0-1.0) k/uL Eosinophils # (0-0.7) k/uL Basophils # (0-0.2) k/uL Hypochromasia PT (9.0-12.0) sec INR (<1.2) APTT (22.0-30.0) sec VBG pH 7.28 L (7.31-7.41) VBG pCO2 97 H* (37-51) mmHg VBG HCO3 45 H (24-28) mmol/L Sodium (137-145) mmol/L Potassium (3.5-5.1) mmol/L Chloride (98-107) mmol/L Carbon Dioxide (22-30) mmol/L Anion Gap mmol/L BUN (9-20) mg/dL Creatinine (0.66-1.25) mg/dL Est GFR (CKD-EPI)AfAm (>60 ml/min/1.73 sqM) Est GFR (CKD-EPI)NonAf (>60 ml/min/1.73 sqM) Glucose (74-99) mg/dL Plasma Lactic Acid Km 0.8 (0.7-2.0) mmol/L Calcium (8.4-10.2) mg/dL Total Bilirubin (0.2-1.3) mg/dL AST (17-59) U/L ALT (4-49) U/L Alkaline Phosphatase (38-126) U/L Troponin I (0.000-0.034) ng/mL NT-Pro-B Natriuret Pep 130 pg/mL Total Protein (6.3-8.2) g/dL Albumin (3.5-5.0) g/dL Serum Alcohol mg/dL C. difficile (EIA) Intrp (Negative) 10/12/21 10/12/21 Range/Units 22:52 23:00 WBC (3.8-10.6) k/uL RBC (4.30-5.90) m/uL Hgb (13.0-17.5) gm/dL Hct (39.0-53.0) % MCV (80.0-100.0) fL MCH (25.0-35.0) pg MCHC (31.0-37.0) g/dL RDW (11.5-15.5) % Plt Count (150-450) k/uL MPV Neutrophils % % Lymphocytes % % Monocytes % % Eosinophils % % Basophils % % Neutrophils # (1.3-7.7) k/uL Lymphocytes # (1.0-4.8) k/uL Monocytes # (0-1.0) k/uL Eosinophils # (0-0.7) k/uL Basophils # (0-0.2) k/uL Hypochromasia PT (9.0-12.0) sec INR (<1.2) APTT (22.0-30.0) sec VBG pH (7.31-7.41) VBG pCO2 (37-51) mmHg VBG HCO3 (24-28) mmol/L Sodium 138 (137-145) mmol/L Potassium 4.9 (3.5-5.1) mmol/L Chloride 87 L (98-107) mmol/L Carbon Dioxide 54 H* (22-30) mmol/L Anion Gap -3 mmol/L BUN 10 (9-20) mg/dL Creatinine 0.46 L (0.66-1.25) mg/dL Est GFR (CKD-EPI)AfAm >90 (>60 ml/min/1.73 sqM) Est GFR (CKD-EPI)NonAf >90 (>60 ml/min/1.73 sqM) Glucose 118 H (74-99) mg/dL Plasma Lactic Acid Km (0.7-2.0) mmol/L Calcium 7.7 L (8.4-10.2) mg/dL Total Bilirubin 0.4 (0.2-1.3) mg/dL AST 21 (17-59) U/L ALT 15 (4-49) U/L Alkaline Phosphatase 40 (38-126) U/L Troponin I (0.000-0.034) ng/mL NT-Pro-B Natriuret Pep pg/mL Total Protein 6.9 (6.3-8.2) g/dL Albumin 3.5 (3.5-5.0) g/dL Serum Alcohol <10 mg/dL C. difficile (EIA) Intrp Negative (Negative) Disposition Clinical Impression: Diarrhea Disposition: HOME SELF-CARE Condition: Good Instructions (If sedation given, give patient instructions): Acute Diarrhea (ED) Is patient prescribed a controlled substance at d/c from ED?: No Referrals: Irineo Mukherjee MD [Primary Care Provider] - 1-2 days
[2021-10-12 21:37] LABS: Basophils # (A) 0.1 k/uL (0-0.2); Basophils % (A) 0 %; Eosinophils # (A) 0.1 k/uL (0-0.7); Eosinophils % (A) 1 %; HCT 43.7 % (39.0-53.0); HGB 12.5 gm/dL (13.0-17.5); Hypochromasia Marked; Lymphocytes # (A) 1.1 k/uL (1.0-4.8); Lymphocytes % (A) 10 %; MCH 28.6 pg (25.0-35.0); MCHC 28.6 g/dL (31.0-37.0); MCV 99.9 fL (80.0-100.0); Mean Platelet Volume 7.7; Monocytes # (A) 0.7 k/uL (0-1.0); Monocytes % (A) 7 %; Neutrophils # (A) 8.5 k/uL (1.3-7.7); Neutrophils % (A) 81 %; Platelet Count 275 k/uL (150-450); RBC 4.37 m/uL (4.30-5.90); RDW 13.1 % (11.5-15.5); WBC 10.5 k/uL (3.8-10.6)
[2021-10-12 21:50] LABS: INR 0.9 (<1.2); Partial Thromboplastin Time 23.7 sec (22.0-30.0); Prothrombin Time 10.1 sec (9.0-12.0)
[2021-10-12 22:01] LABS: VBG PH 7.28 (7.31-7.41)
--- NOTE | 2021-10-12 22:07 | XR ---
EXAMINATION TYPE: XR chest 2V DATE OF EXAM: 10/12/2021 9:35 PM COMPARISON: Chest radiographs from 05/29/2019 TECHNIQUE: XR chest 2V Frontal and lateral views of the chest. CLINICAL INDICATION:Male, 61 years old with history of difficulty breathing; FINDINGS: Lungs/Pleura: There is no evidence of pleural effusion, focal consolidation, or pneumothorax. Pulmonary vascularity: Mild pulmonary vascular congestion. Heart/mediastinum: Cardiomediastinal silhouette is enlarged and stable. Musculoskeletal: No acute osseous pathology. IMPRESSION: Diffuse pulmonary vascular congestion correlate for congestive heart failure.
[2021-10-12 23:18] VITALS: PULSE 87
[2021-10-12 23:25] LABS: ALT 15 U/L (4-49); AST 21 U/L (17-59); African American GFR (CKD) >90 (>60 ml/min/1.73 sqM); Albumin 3.5 g/dL (3.5-5.0); Alcohol <10 mg/dL; Alkaline Phosphatase 40 U/L (38-126); Blood Urea Nitrogen 10 mg/dL (9-20); Calcium 7.7 mg/dL (8.4-10.2); Chloride 87 mmol/L (98-107); Glucose 118 mg/dL (74-99); Non-African American GFR(CKD) >90 (>60 ml/min/1.73 sqM); Potassium 4.9 mmol/L (3.5-5.1); Sodium 138 mmol/L (137-145); Total Bilirubin 0.4 mg/dL (0.2-1.3); Total Protein 6.9 g/dL (6.3-8.2)
[2021-10-12 23:31] LABS: Anion Gap -3 mmol/L
[2021-10-12 23:49] LABS: Carbon Dioxide 54 mmol/L (22-30)
[2021-10-13 00:14] VITALS: BP 137/79; RESP 20
== END 2021-10-13 00:38 | disposition home or self-care (01) ==
LOC: EC 20:54
DX: R19.7 Diarrhea, unspecified (principal); R11.2 Nausea with vomiting, unspecified; J44.9 Chronic obstructive pulmonary disease, unspecified; Z87.891 Personal history of nicotine dependence
CPT/HCPCS: 36415; 83880; 80053; 82803; 83605; 84484; 85025; 85610; 85730; 87324; 71046; 99284; G0480; 80320; 93005

== ENCOUNTER 2021-11-19 01:33 | Emergency (ER) | payer MEDICARE ==
[2021-11-19] MEDS ORDERED: ETOMIDATE 2 MG/ML 10 ML VIAL IVP STA (01:38)
[2021-11-19] MEDS ORDERED: SODIUM CHLORIDE 0.9% 500 ML 500 ML IV STA (01:41)
[2021-11-19] MEDS ORDERED: SODIUM CHLORIDE 0.9% 1,000 ML IV STA (01:41)
[2021-11-19] MEDS ORDERED: IPRATROPIUM-ALBUTEROL 3 ML NEB INHALATION STA (01:49)
[2021-11-19] MEDS ORDERED: fentaNYL (PF) 50 MCG/ML 2 ML AMP IVP STA (01:50)
[2021-11-19 01:55] LABS: Glucose,Whole Blood 156 mg/dL (70-110)
[2021-11-19] MEDS: MIDAZOLAM 1 MG/ML 5 ML VIAL IV PRN ×2 (02:00→03:00)
[2021-11-19] MEDS ORDERED: MIDAZOLAM HCL 50 MG in SODIUM CHLORIDE 0.9% 40 ML IV SCH (02:00)
[2021-11-19 02:06] LABS: ALT 17 U/L (4-49); AST 29 U/L (17-59); African American GFR (CKD) >90 (>60 ml/min/1.73 sqM); Albumin 3.7 g/dL (3.5-5.0); Alkaline Phosphatase 57 U/L (38-126); Blood Urea Nitrogen 6 mg/dL (9-20); Calcium 8.7 mg/dL (8.4-10.2); Chloride 94 mmol/L (98-107); Glucose 143 mg/dL (74-99); Magnesium 2.2 mg/dL (1.6-2.3); Non-African American GFR(CKD) >90 (>60 ml/min/1.73 sqM); Phosphorus 4.2 mg/dL (2.5-4.5); Potassium 5.3 mmol/L (3.5-5.1); Sodium 141 mmol/L (137-145); Total Bilirubin 0.5 mg/dL (0.2-1.3)
[2021-11-19 02:12] LABS: Anion Gap 1 mmol/L
[2021-11-19 02:20] LABS: Basophils # (A) 0.2 k/uL (0-0.2); Basophils % (A) 2 %; Eosinophils # (A) 0.1 k/uL (0-0.7); Eosinophils % (A) 1 %; HCT 41.6 % (39.0-53.0); HGB 12.3 gm/dL (13.0-17.5); Hypochromasia Marked; Lymphocytes % (A) 8 %; MCH 28.7 pg (25.0-35.0); MCHC 29.7 g/dL (31.0-37.0); MCV 96.7 fL (80.0-100.0); Mean Platelet Volume 7.9; Monocytes # (A) 0.7 k/uL (0-1.0); Monocytes % (A) 6 %; Neutrophils % (A) 82 %; Platelet Count 408 k/uL (150-450); RDW 12.9 % (11.5-15.5); WBC 12.1 k/uL (3.8-10.6)
--- NOTE | 2021-11-19 02:23 | CT ---
ADDENDUM - Added by Abdoul Lincoln MD on 11/19/2021 2:55 AM (-07:00) EXAM: CT Head Without Intravenous Contrast CLINICAL HISTORY: ITS.REASON CT Reason: ams TECHNIQUE: Axial computed tomography images of the head/brain without intravenous contrast. CTDI is 30.6 mGy and DLP is 760.1 mGy-cm. This CT exam was performed using one or more of the following dose reduction techniques: automated exposure control, adjustment of the mA and/or kV according to patient size, and/or use of iterative reconstruction technique. COMPARISON: CTA head 11/19/2021 FINDINGS: Brain: No hemorrhage. 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 Bones/joints: Unremarkable. Soft tissues: Unremarkable. Sinuses: No air fluid level. Mastoid air cells: Clear. 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 This corresponds to the aneurysm seen on CTA EXAM: CT Head Without Intravenous Contrast CLINICAL HISTORY: ITS.REASON CT Reason: ams TECHNIQUE: Axial computed tomography images of the head/brain without intravenous contrast. CTDI is 30.6 mGy and DLP is 760.1 mGy-cm. This CT exam was performed using one or more of the following dose reduction techniques: automated exposure control, adjustment of the mA and/or kV according to patient size, and/or use of iterative reconstruction technique. COMPARISON: No relevant prior studies available. FINDINGS: Brain: No hemorrhage. 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 Bones/joints: Unremarkable. Soft tissues: Unremarkable. Sinuses: No air fluid level. Mastoid air cells: Clear. 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 Recommend MRI of the brain with contrast <MYCVCSECTION> Communications: 11/19/21 02:44 Call From [facility] on 11/19 02:44 (-04:00)See Notes.
[2021-11-19 02:24] LABS: INR 0.9 (<1.2); Partial Thromboplastin Time 22.9 sec (22.0-30.0); Prothrombin Time 9.7 sec (9.0-12.0)
--- NOTE | 2021-11-19 02:26 | CT ---
EXAM: CT Angiography Head With Intravenous Contrast CLINICAL HISTORY: ITS.REASON CT Reason: ams TECHNIQUE: Axial computed tomographic angiography images of the head with intravenous contrast. CTDI is 30.6 mGy and DLP is 760.1 mGy-cm. This CT exam was performed using one or more of the following dose reduction techniques: automated exposure control, adjustment of the mA and/or kV according to patient size, and/or use of iterative reconstruction technique. MIP reconstructed images were created and reviewed. COMPARISON: No relevant prior studies available. FINDINGS: 2.5 cm aneurysm is seen near the anterior communicating artery. Right internal carotid artery: Intracranial segment is patent with no significant stenosis. No aneurysm. Right anterior cerebral artery: No occlusion or significant stenosis. Right middle cerebral artery: No occlusion or significant stenosis. No aneurysm. Right posterior cerebral artery: No occlusion or significant stenosis. No aneurysm. Right vertebral artery: Unremarkable. Left internal carotid artery: Intracranial segment is patent with no significant stenosis. No aneurysm. Left anterior cerebral artery: No occlusion or significant stenosis. Left middle cerebral artery: No occlusion or significant stenosis. No aneurysm. Left posterior cerebral artery: No occlusion or significant stenosis. No aneurysm. Left vertebral artery: Unremarkable. Basilar artery: No occlusion or significant stenosis. No aneurysm. 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 Recommend cerebral angiography/neurosurgery consultation EXAM: CT Angiography Neck With Intravenous Contrast CLINICAL HISTORY: ITS.REASON CT Reason: ams TECHNIQUE: Axial computed tomographic angiography images of the neck with intravenous contrast. CTDI is 30.6 mGy and DLP is 760.1 mGy-cm. This CT exam was performed using one or more of the following dose reduction techniques: automated exposure control, adjustment of the mA and/or kV according to patient size, and/or use of iterative reconstruction technique. MIP reconstructed images were created and reviewed. COMPARISON: No relevant prior studies available. FINDINGS: VASCULATURE: Right common carotid artery: No significant stenosis. No dissection. Right internal carotid artery: Extracranial has no significant stenosis. No dissection. Right vertebral artery: No significant stenosis. No dissection. Left common carotid artery: No significant stenosis. No dissection. Left internal carotid artery: Extracranial has no significant stenosis. No dissection. Left vertebral artery: No significant stenosis. No dissection. NECK: Bones/joints: No acute fracture. No dislocation. CAROTID STENOSIS REFERENCE USING NASCET CRITERIA: % ICA stenosis = (1 - narrowest ICA diameter/diameter of distal cervical ICA) x 100. Mild - <50% stenosis. Moderate - 50-69% stenosis. Severe - 70-94% stenosis. Near occlusion - 95-99% stenosis. Occluded - 100% stenosis. IMPRESSION: No significant stenosis. <MYCVCSECTION> Communications: 11/19/21 02:54 Call From [facility] on 11/19 02:44 (-04:00)
[2021-11-19 02:42] LABS: ABG Base Excess 19.6 mmol/L; ABG Oxygen Saturation 99.9 % (94-97); ABG PH 7.34 (7.35-7.45); ABG PO2 231 mmHg (83-108); ABG TCO2 48 mmol/L (19-24); Allen Test Performed? Yes
[2021-11-19 02:46] LABS: ABG PCO2 85 mmHg (35-45)
[2021-11-19 02:47] LABS: ABG HCO3 46 mmol/L (21-25)
--- NOTE | 2021-11-19 02:54 | ED ---
Altered Mental Status HPI - General Chief Complaint: Altered Mental Status Stated Complaint: AMS Time Seen by Provider: 11/19/21 01:40 Source: patient, RN notes reviewed, old records reviewed Mode of arrival: EMS Limitations: altered mental status, physical limitation - History of Present Illness Initial Comments: This is a 61-year-old male DF for evaluation. Patient Dese for evaluation regards to altered mental status patient presents unresponsive brought in by EMS history obtained from EMS. Patient's allegedly fell patient displayed tonight MD Complaint: altered mental status, confusion, decreased responsiveness -: unknown Severity: severe Consistency of Symptoms: getting worse Context: history of similar presentation Associated Symptoms: denies other symptoms Treatments Prior to Arrival: IV fluid - Related Data Home Medications Medication Instructions Recorded Confirmed Hydrocodone/Acetaminophen [[place] 1 tab PO TID 10/14/17 10/12/21 10-325] Potassium Chloride [Klor-Con 20] 20 meq PO DAILY 05/29/21 10/12/21 Terbinafine [LamISIL] 250 mg PO DAILY 05/29/21 10/12/21 predniSONE [Deltasone] 20 mg PO BID 05/29/21 10/12/21 Ciprofloxacin HCl [Cipro] 500 mg PO BID 10/12/21 10/12/21 Dulaglutide [Trulicity] 1.5 mg SQ SA 10/12/21 10/12/21 Erythromycin Ophth Oint (1 gm) 1 applic RIGHT EYE BID 10/12/21 10/12/21 [Ilotycin Ophth Oint (1 gm)] Omeprazole 40 mg PO DAILY 10/12/21 10/12/21 Previous Rx's Medication Instructions Recorded Furosemide [Lasix] 40 mg PO DAILY 90 Days #90 tab 08/24/20 Ipratropium-Albuterol Nebulize 3 ml INHALATION RT-Q2H PRN 30 Days 05/30/21 [Duoneb 0.5 mg-3 mg/3 ml Soln] #120 ml Allergies Allergy/AdvReac Type Severity Reaction Status Date / Time No Known Allergies Allergy Verified 10/12/21 22:41 Review of Systems ROS Statement: Those systems with pertinent positive or pertinent negative responses have been documented in the HPI. ROS Other: All systems not noted in ROS Statement are negative. Past Medical History Past Medical History: COPD, Pneumonia Additional Past Medical History / Comment(s): Pt states prior to today, he was never diagnosed with copd, pneumonia 20 yrs ago, chronic back pain, R arm numbness/tingling and also involves R shoulder. History of Any Multi-Drug Resistant Organisms: None Reported Additional Past Surgical History / Comment(s): Colonoscopies with benign polypectomy, back injections. Past Anesthesia/Blood Transfusion Reactions: No Reported Reaction Past Psychological History: No Psychological Hx Reported Smoking Status: Former smoker Past Alcohol Use History: None Reported Past Drug Use History: None Reported - Past Family History Father Family Medical History: COPD Additional Family Medical History / Comment(s): Father of copd at the age of 69yrs. He was a smoker. Mother Family Medical History: COPD, Hypertension Additional Family Medical History / Comment(s): Mother at the age of 78yrs. General Exam Limitations: altered mental status, physical limitation General appearance: obtunded, in distress, obese Head exam: Present: atraumatic, normocephalic, normal inspection Eye exam: Present: normal appearance, PERRL, EOMI. Absent: scleral icterus, conjunctival injection, periorbital swelling ENT exam: Present: normal exam, mucous membranes moist Neck exam: Present: normal inspection. Absent: tenderness, meningismus, lymphadenopathy Respiratory exam: Present: normal lung sounds bilaterally. Absent: respiratory distress, wheezes, rales, rhonchi, stridor Cardiovascular Exam: Present: regular rate, normal rhythm, normal heart sounds. Absent: systolic murmur, diastolic murmur, rubs, gallop, clicks GI/Abdominal exam: Present: soft, normal bowel sounds. Absent: distended, tenderness, guarding, rebound, rigid Extremities exam: Present: normal inspection, full ROM, normal capillary refill. Absent: tenderness, pedal edema, joint swelling, calf tenderness Back exam: Present: normal inspection Neurological exam: Present: alert, oriented X3, CN II-XII intact Psychiatric exam: Present: normal affect, normal mood Skin exam: Present: warm, dry, intact, normal color. Absent: rash Course Vital Signs 11/19/21 11/19/21 11/19/21 01:33 02:09 02:20 Pulse Rate 106 H Respiratory 16 Rate Blood Pressure 99/76 O2 Sat by Pulse 100 Oximetry Fraction of 100 100 Inspired Oxygen (FIO2) 11/19/21 02:47 Pulse Rate Respiratory Rate Blood Pressure O2 Sat by Pulse Oximetry Fraction of 60 Inspired Oxygen (FIO2) - Reevaluation(s) Reevaluation #1: 11/19/21 03:58 Medical record is reviewed Reevaluation #2: 11/19/21 03:58 Patient has no improvement in symptoms here in the ER Reevaluation #3: 11/19/21 03:59 Patient showing no change in clinical condition here in the emergency department - Consultations Consultation #1: Spoke with Dr. Cruz that left for neuro intervention who states that aneurysm is not causing patient symptoms Consultation #2: Spoke with Clara Delgado we'll admit this patient Procedures - Central Line Placement Right IJ Consent Obtained: verbal consent Patient Placed on Monitor/Pulse Ox: Yes MD Prep: mask, gown, gloves Central Line Prep: Chlorhexidine scrub Local Anesthesia Used: Lidocaine 1% Ultrasound Used for Placement: Yes Central Line Lumen Inserted: triple Bloods Obtained for Lab: No Central Line Position: good blood return, all ports aspirated, flushed, capped, sutured in place with 2-0 silk Dressing Applied: Tegaderm Post Procedure X-Ray: tip of catheter in good position Patient Tolerated Procedure: well Complications: none - Intubation Sedative: Versed Laryngoscope: Valerie Size: 4 ET Tube Size: 8 ET Tube Uncuffed: No Tube Secured Location: teeth Tube Placement Confirmation: visualized tube passing through cords, equal breath sounds bilaterally, no breath sounds over epigastrium, confirmation by capnometry Patient Tolerated Procedure: well Intubation Complications: none Medical Decision Making - Medical Decision Making 61 male to the emergency department for evaluation. Patient presents today for evaluation regards to severe respiratory failure unresponsiveness. Patient's intubated due to unresponsiveness. Patient be transferred Clara Delgado secondary to computed tomography scan findings and mentation. - Lab Data Result diagrams: 11/19/21 01:44 11/19/21 01:44 Lab Results 11/19/21 11/19/21 11/19/21 Range/Units 01:43 01:44 01:44 WBC 12.1 H (3.8-10.6) k/uL RBC 4.30 (4.30-5.90) m/uL Hgb 12.3 L (13.0-17.5) gm/dL Hct 41.6 (39.0-53.0) % MCV 96.7 (80.0-100.0) fL MCH 28.7 (25.0-35.0) pg MCHC 29.7 L (31.0-37.0) g/dL RDW 12.9 (11.5-15.5) % Plt Count 408 (150-450) k/uL MPV 7.9 Neutrophils % 82 % Lymphocytes % 8 % Monocytes % 6 % Eosinophils % 1 % Basophils % 2 % Neutrophils # 10.0 H (1.3-7.7) k/uL Lymphocytes # 1.0 (1.0-4.8) k/uL Monocytes # 0.7 (0-1.0) k/uL Eosinophils # 0.1 (0-0.7) k/uL Basophils # 0.2 (0-0.2) k/uL Hypochromasia Marked PT 9.7 (9.0-12.0) sec INR 0.9 (<1.2) APTT 22.9 (22.0-30.0) sec Sample Site ABG pH (7.35-7.45) ABG pCO2 (35-45) mmHg ABG pO2 (83-108) mmHg ABG HCO3 (21-25) mmol/L ABG Total CO2 (19-24) mmol/L ABG O2 Saturation (94-97) % ABG Base Excess mmol/L Max Test FiO2 % Sodium (137-145) mmol/L Potassium (3.5-5.1) mmol/L Chloride (98-107) mmol/L Carbon Dioxide (22-30) mmol/L Anion Gap mmol/L BUN (9-20) mg/dL Creatinine (0.66-1.25) mg/dL Est GFR (CKD-EPI)AfAm (>60 ml/min/1.73 sqM) Est GFR (CKD-EPI)NonAf (>60 ml/min/1.73 sqM) Glucose (74-99) mg/dL POC Glucose (mg/dL) 156 H (70-110) mg/dL POC Glu Systems Integration Engineer ID Duarte Parkinson Plasma Lactic Acid Km (0.7-2.0) mmol/L Calcium (8.4-10.2) mg/dL Phosphorus (2.5-4.5) mg/dL Magnesium (1.6-2.3) mg/dL Total Bilirubin (0.2-1.3) mg/dL AST (17-59) U/L ALT (4-49) U/L Alkaline Phosphatase (38-126) U/L Troponin I (0.000-0.034) ng/mL NT-Pro-B Natriuret Pep pg/mL Total Protein (6.3-8.2) g/dL Albumin (3.5-5.0) g/dL 11/19/21 11/19/21 11/19/21 Range/Units 01:44 01:44 01:44 WBC (3.8-10.6) k/uL RBC (4.30-5.90) m/uL Hgb (13.0-17.5) gm/dL Hct (39.0-53.0) % MCV (80.0-100.0) fL MCH (25.0-35.0) pg MCHC (31.0-37.0) g/dL RDW (11.5-15.5) % Plt Count (150-450) k/uL MPV Neutrophils % % Lymphocytes % % Monocytes % % Eosinophils % % Basophils % % Neutrophils # (1.3-7.7) k/uL Lymphocytes # (1.0-4.8) k/uL Monocytes # (0-1.0) k/uL Eosinophils # (0-0.7) k/uL Basophils # (0-0.2) k/uL Hypochromasia PT (9.0-12.0) sec INR (<1.2) APTT (22.0-30.0) sec Sample Site ABG pH (7.35-7.45) ABG pCO2 (35-45) mmHg ABG pO2 (83-108) mmHg ABG HCO3 (21-25) mmol/L ABG Total CO2 (19-24) mmol/L ABG O2 Saturation (94-97) % ABG Base Excess mmol/L Max Test FiO2 % Sodium 141 (137-145) mmol/L Potassium 5.3 H (3.5-5.1) mmol/L Chloride 94 L (98-107) mmol/L Carbon Dioxide 46 H* (22-30) mmol/L Anion Gap 1 mmol/L BUN 6 L (9-20) mg/dL Creatinine 0.47 L (0.66-1.25) mg/dL Est GFR (CKD-EPI)AfAm >90 (>60 ml/min/1.73 sqM) Est GFR (CKD-EPI)NonAf >90 (>60 ml/min/1.73 sqM) Glucose 143 H (74-99) mg/dL POC Glucose (mg/dL) (70-110) mg/dL POC Glu Systems Integration Engineer ID Plasma Lactic Acid Km 0.7 (0.7-2.0) mmol/L Calcium 8.7 (8.4-10.2) mg/dL Phosphorus 4.2 (2.5-4.5) mg/dL Magnesium 2.2 (1.6-2.3) mg/dL Total Bilirubin 0.5 (0.2-1.3) mg/dL AST 29 (17-59) U/L ALT 17 (4-49) U/L Alkaline Phosphatase 57 (38-126) U/L Troponin I <0.012 (0.000-0.034) ng/mL NT-Pro-B Natriuret Pep pg/mL Total Protein 7.0 (6.3-8.2) g/dL Albumin 3.7 (3.5-5.0) g/dL 11/19/21 11/19/21 Range/Units 01:44 02:39 WBC (3.8-10.6) k/uL RBC (4.30-5.90) m/uL Hgb (13.0-17.5) gm/dL Hct (39.0-53.0) % MCV (80.0-100.0) fL MCH (25.0-35.0) pg MCHC (31.0-37.0) g/dL RDW (11.5-15.5) % Plt Count (150-450) k/uL MPV Neutrophils % % Lymphocytes % % Monocytes % % Eosinophils % % Basophils % % Neutrophils # (1.3-7.7) k/uL Lymphocytes # (1.0-4.8) k/uL Monocytes # (0-1.0) k/uL Eosinophils # (0-0.7) k/uL Basophils # (0-0.2) k/uL Hypochromasia PT (9.0-12.0) sec INR (<1.2) APTT (22.0-30.0) sec Sample Site R brachial ABG pH 7.34 L (7.35-7.45) ABG pCO2 85 H* (35-45) mmHg ABG pO2 231 H (83-108) mmHg ABG HCO3 46 H* (21-25) mmol/L ABG Total CO2 48 H (19-24) mmol/L ABG O2 Saturation 99.9 H (94-97) % ABG Base Excess 19.6 mmol/L Max Test Yes FiO2 100 % Sodium (137-145) mmol/L Potassium (3.5-5.1) mmol/L Chloride (98-107) mmol/L Carbon Dioxide (22-30) mmol/L Anion Gap mmol/L BUN (9-20) mg/dL Creatinine (0.66-1.25) mg/dL Est GFR (CKD-EPI)AfAm (>60 ml/min/1.73 sqM) Est GFR (CKD-EPI)NonAf (>60 ml/min/1.73 sqM) Glucose (74-99) mg/dL POC Glucose (mg/dL) (70-110) mg/dL POC Glu Systems Integration Engineer ID Plasma Lactic Acid Km (0.7-2.0) mmol/L Calcium (8.4-10.2) mg/dL Phosphorus (2.5-4.5) mg/dL Magnesium (1.6-2.3) mg/dL Total Bilirubin (0.2-1.3) mg/dL AST (17-59) U/L ALT (4-49) U/L Alkaline Phosphatase (38-126) U/L Troponin I (0.000-0.034) ng/mL NT-Pro-B Natriuret Pep 405 pg/mL Total Protein (6.3-8.2) g/dL Albumin (3.5-5.0) g/dL - Radiology Data Radiology results: report reviewed (Chest positive for ET tube, CT brain CT angios does show aneurysm), image reviewed Critical Care Time Critical Care Time: Yes Total Critical Care Time: 65 Disposition Clinical Impression: Altered mental status, Acute exacerbation of chronic obstructive pulmonary disease (COPD), Hypoxia, COPD (chronic obstructive pulmonary disease), Delirium due to general medical condition, Acute respiratory failure Disposition: OTHER INSTITUTION NOT DEFINED Condition: Critical Is patient prescribed a controlled substance at d/c from ED?: No Referrals: Kolton Russell MD [Primary Care Provider] - 1-2 days - Out of Hospital Transfer - Req. Specs Out of Hospital Transfer - Requested Specifics: Other Emergency Center
[2021-11-19] MEDS ORDERED: fentaNYL (PF). 1,000 MCG in SODIUM CHLORIDE 0.9% 80 ML IV SCH (03:00)
[2021-11-19 03:13] LABS: Carbon Dioxide 46 mmol/L (22-30)
[2021-11-19] MEDS ORDERED: methylPREDNISolone SOD SUCCI 125 MG/2 ML VIAL IV STA (03:59)
[2021-11-19] MEDS ORDERED: ETOMIDATE 2 MG/ML 10 ML VIAL ONE (05:00)
[2021-11-19 05:32] VITALS: RESP 20
[2021-11-19 05:35] VITALS: BP 84/58; PULSE 60
--- NOTE | 2021-11-19 06:09 | XR ---
EXAMINATION TYPE: XR chest 1V portable DATE OF EXAM: 11/19/2021 COMPARISON: Chest x-ray October 12, 2021 HISTORY: Altered mental status, had to be intubated. TECHNIQUE: Single AP portable frontal supine view of the chest is obtained. FINDINGS: There is a new endotracheal tube terminating aortic knob level approximately 1 cm above ca liz. There is new orogastric tube with tip not definitively seen just past the subcarinal level. Exam suboptimal due to portable technique and patient's large body habitus along with poor positioning. Persistent cardiomegaly with new left mid lung opacity. Suboptimal evaluation of the left lung base. Small amount of fluid along the right lung fissure. Osseous structures are intact. IMPRESSION: 1. Low-lying endotracheal tube, advise pulling back 2 to 3 cm. 2. Distal NG tube not well seen. Advise repeat KUB imaging. 3. Cardiomegaly with left mid lung acute infiltrate and small amount of pleural fluid.
== END 2021-11-19 05:30 | disposition other institution (70) ==
LOC: EC 01:33
DX: R41.82 Altered mental status, unspecified (principal); J44.1 Chronic obstructive pulmonary disease with (acute) exacerbation; F05 Delirium due to known physiological condition; J96.00 Acute respiratory failure, unspecified whether with hypoxia or hypercapnia; Z87.891 Personal history of nicotine dependence
CPT/HCPCS: 99291; 31500; 96365; 96366; 96361; 96375; 36415; 36600; 94002; 93005; 83880; 80053; 82805; 83605; 83735; 84100; 84484; 85025; 85610; 85730; 71045; 70496; 70450; 70498; 36556; J2930; J2250 ×2; J3010; J2704; Q9967

== ENCOUNTER 2021-12-08 15:56 | Inpatient (IN) | payer MEDICARE ==
[2021-12-08 17:44] LABS: Basophils % (A) 1 %; Eosinophils # (A) 0.3 k/uL (0-0.7); Eosinophils % (A) 5 %; HCT 40.1 % (39.0-53.0); Hypochromasia Marked; Lymphocytes # (A) 1.1 k/uL (1.0-4.8); Lymphocytes % (A) 18 %; MCH 28.3 pg (25.0-35.0); MCHC 29.9 g/dL (31.0-37.0); MCV 94.6 fL (80.0-100.0); Mean Platelet Volume 7.2; Monocytes # (A) 0.4 k/uL (0-1.0); Monocytes % (A) 7 %; Neutrophils # (A) 4.2 k/uL (1.3-7.7); Neutrophils % (A) 68 %; Platelet Count 268 k/uL (150-450); RBC 4.23 m/uL (4.30-5.90); RDW 13.4 % (11.5-15.5); WBC 6.1 k/uL (3.8-10.6)
[2021-12-08 17:47] LABS: VBG PH 7.3 (7.31-7.41)
[2021-12-08 17:58] LABS: INR 0.9 (<1.2); Prothrombin Time 9.7 sec (9.0-12.0)
[2021-12-08 17:59] LABS: Partial Thromboplastin Time 23.7 sec (22.0-30.0)
--- NOTE | 2021-12-08 18:02 | ED ---
General Adult HPI - General Chief complaint: Shortness of Breath Stated complaint: TRAVIS Time Seen by Provider: 12/08/21 16:20 Source: patient, EMS Mode of arrival: EMS Limitations: no limitations - History of Present Illness Initial comments: 61-year-old male with past history of COPD, morbid obesity, brain aneurysm who presents emergency Department with shortness of breath. Patient was confused at home. called EMS. His oxygen was found to be in the 70s. He does wear 4.5 liters at home for COPD. He was recently discharged from [facility] and was supposed to be prescribed a BiPAP machine to wear during naps and at sleep. He states that he is having issues with the [employer] and has not received this machine. He does have a CPAP however does not wear it. No recent illnesses. No fevers or cough. Denies any chest pain. No lower extremity swelling. His last hospitalization he was extremely confused and required intubation. CAT scan of the head penetrated an aneurysm and therefore he is transferred to [facility]. He had complete workup of his aneurysm. He is scheduled to have coiling done on December 18. He denies any headaches or visual changes. No confusion today from the patient - Related Data Home Medications Medication Instructions Recorded Confirmed Hydrocodone/Acetaminophen [[place] 1 tab PO TID 10/14/17 12/08/21 10-325] Potassium Chloride [Klor-Con 20] 20 meq PO DAILY 05/29/21 12/08/21 Terbinafine [LamISIL] 250 mg PO DAILY 05/29/21 12/08/21 Dulaglutide [Trulicity] 1.5 mg SQ SA 10/12/21 12/08/21 Omeprazole 40 mg PO DAILY 10/12/21 12/08/21 Budesonide-Formot 160-4.5 Mcg 2 puff INHALATION RT-BID 12/08/21 12/08/21 [Symbicort 160-4.5 Mcg Inhaler] Clopidogrel [Plavix] See Taper PO DIRECTED 12/08/21 12/08/21 Previous Rx's Medication Instructions Recorded Furosemide [Lasix] 40 mg PO DAILY 90 Days #90 tab 08/24/20 Ipratropium-Albuterol Nebulize 3 ml INHALATION RT-Q2H PRN 30 Days 05/30/21 [Duoneb 0.5 mg-3 mg/3 ml Soln] #120 ml Allergies Allergy/AdvReac Type Severity Reaction Status Date / Time No Known Allergies Allergy Verified 10/12/21 22:41 Review of Systems ROS Statement: Those systems with pertinent positive or pertinent negative responses have been documented in the HPI. ROS Other: All systems not noted in ROS Statement are negative. Past Medical History Past Medical History: COPD, Pneumonia Additional Past Medical History / Comment(s): Pt states prior to today, he was never diagnosed with copd, pneumonia 20 yrs ago, chronic back pain, R arm numbness/tingling and also involves R shoulder. History of Any Multi-Drug Resistant Organisms: None Reported Additional Past Surgical History / Comment(s): Colonoscopies with benign polypectomy, back injections. Past Anesthesia/Blood Transfusion Reactions: No Reported Reaction Past Psychological History: No Psychological Hx Reported Smoking Status: Former smoker Past Alcohol Use History: None Reported Past Drug Use History: None Reported - Past Family History Father Family Medical History: COPD Additional Family Medical History / Comment(s): Father of copd at the age of 69yrs. He was a smoker. Mother Family Medical History: COPD, Hypertension Additional Family Medical History / Comment(s): Mother at the age of 78yrs. General Exam Limitations: no limitations Course Vital Signs 12/08/21 12/08/21 12/08/21 15:57 18:07 19:28 Temperature 98.0 F Pulse Rate 76 82 Respiratory 30 H 22 Rate Blood Pressure 156/75 128/102 O2 Sat by Pulse 84 L 95 Oximetry Fraction of 40 Inspired Oxygen (FIO2) 12/08/21 12/08/21 19:29 20:00 Temperature Pulse Rate 89 Respiratory 24 Rate Blood Pressure 146/69 O2 Sat by Pulse 99 Oximetry Fraction of 40 Inspired Oxygen (FIO2) EKG Findings - EKG Comments: EKG Findings:: EKG demonstrates sinus rhythm with a rate of 76. CA interval 187. QRS 85. QTC 386. No acute ST segment elevations or depressions Medical Decision Making - Medical Decision Making Upon arrival patient was placed into room 17. Thorough history and physical exam was performed. Patient has no signs of respiratory distress. IV is established laboratory studies are conducted. Patient does have a CO2 of 94. Because of this ABG is obtained which demonstrates a CO2 of 86. At this point the patient is placed on BiPAP. Called and spoke with Dr. Pérez who is covering for Dr. Vásquez. - Lab Data Result diagrams: 12/08/21 17:32 12/08/21 17:32 Lab Results 12/08/21 12/08/21 12/08/21 Range/Units 17:32 17:32 17:32 WBC 6.1 (3.8-10.6) k/uL RBC 4.23 L (4.30-5.90) m/uL Hgb 12.0 L (13.0-17.5) gm/dL Hct 40.1 (39.0-53.0) % MCV 94.6 (80.0-100.0) fL MCH 28.3 (25.0-35.0) pg MCHC 29.9 L (31.0-37.0) g/dL RDW 13.4 (11.5-15.5) % Plt Count 268 (150-450) k/uL MPV 7.2 Neutrophils % 68 % Lymphocytes % 18 % Monocytes % 7 % Eosinophils % 5 % Basophils % 1 % Neutrophils # 4.2 (1.3-7.7) k/uL Lymphocytes # 1.1 (1.0-4.8) k/uL Monocytes # 0.4 (0-1.0) k/uL Eosinophils # 0.3 (0-0.7) k/uL Basophils # 0.0 (0-0.2) k/uL Hypochromasia Marked PT 9.7 (9.0-12.0) sec INR 0.9 (<1.2) APTT 23.7 (22.0-30.0) sec Sample Site ABG pH (7.35-7.45) ABG pCO2 (35-45) mmHg ABG pO2 (83-108) mmHg ABG HCO3 (21-25) mmol/L ABG Total CO2 (19-24) mmol/L ABG O2 Saturation (94-97) % ABG Base Excess mmol/L Max Test VBG pH (7.31-7.41) VBG pCO2 (37-51) mmHg VBG HCO3 (24-28) mmol/L FiO2 % Sodium 141 (137-145) mmol/L Potassium 4.6 (3.5-5.1) mmol/L Chloride 97 L (98-107) mmol/L Carbon Dioxide 40 H (22-30) mmol/L Anion Gap 4 mmol/L BUN 9 (9-20) mg/dL Creatinine 0.56 L (0.66-1.25) mg/dL Est GFR (CKD-EPI)AfAm >90 (>60 ml/min/1.73 sqM) Est GFR (CKD-EPI)NonAf >90 (>60 ml/min/1.73 sqM) Glucose 104 H (74-99) mg/dL Plasma Lactic Acid Km (0.7-2.0) mmol/L Calcium 8.4 (8.4-10.2) mg/dL Total Bilirubin 0.4 (0.2-1.3) mg/dL AST 25 (17-59) U/L ALT 16 (4-49) U/L Alkaline Phosphatase 41 (38-126) U/L Troponin I (0.000-0.034) ng/mL NT-Pro-B Natriuret Pep pg/mL Total Protein 6.7 (6.3-8.2) g/dL Albumin 3.6 (3.5-5.0) g/dL 12/08/21 12/08/21 12/08/21 Range/Units 17:32 17:32 17:32 WBC (3.8-10.6) k/uL RBC (4.30-5.90) m/uL Hgb (13.0-17.5) gm/dL Hct (39.0-53.0) % MCV (80.0-100.0) fL MCH (25.0-35.0) pg MCHC (31.0-37.0) g/dL RDW (11.5-15.5) % Plt Count (150-450) k/uL MPV Neutrophils % % Lymphocytes % % Monocytes % % Eosinophils % % Basophils % % Neutrophils # (1.3-7.7) k/uL Lymphocytes # (1.0-4.8) k/uL Monocytes # (0-1.0) k/uL Eosinophils # (0-0.7) k/uL Basophils # (0-0.2) k/uL Hypochromasia PT (9.0-12.0) sec INR (<1.2) APTT (22.0-30.0) sec Sample Site ABG pH (7.35-7.45) ABG pCO2 (35-45) mmHg ABG pO2 (83-108) mmHg ABG HCO3 (21-25) mmol/L ABG Total CO2 (19-24) mmol/L ABG O2 Saturation (94-97) % ABG Base Excess mmol/L Max Test VBG pH (7.31-7.41) VBG pCO2 (37-51) mmHg VBG HCO3 (24-28) mmol/L FiO2 % Sodium (137-145) mmol/L Potassium (3.5-5.1) mmol/L Chloride (98-107) mmol/L Carbon Dioxide (22-30) mmol/L Anion Gap mmol/L BUN (9-20) mg/dL Creatinine (0.66-1.25) mg/dL Est GFR (CKD-EPI)AfAm (>60 ml/min/1.73 sqM) Est GFR (CKD-EPI)NonAf (>60 ml/min/1.73 sqM) Glucose (74-99) mg/dL Plasma Lactic Acid Km 1.1 (0.7-2.0) mmol/L Calcium (8.4-10.2) mg/dL Total Bilirubin (0.2-1.3) mg/dL AST (17-59) U/L ALT (4-49) U/L Alkaline Phosphatase (38-126) U/L Troponin I <0.012 (0.000-0.034) ng/mL NT-Pro-B Natriuret Pep 125 pg/mL Total Protein (6.3-8.2) g/dL Albumin (3.5-5.0) g/dL 12/08/21 12/08/21 Range/Units 17:32 19:01 WBC (3.8-10.6) k/uL RBC (4.30-5.90) m/uL Hgb (13.0-17.5) gm/dL Hct (39.0-53.0) % MCV (80.0-100.0) fL MCH (25.0-35.0) pg MCHC (31.0-37.0) g/dL RDW (11.5-15.5) % Plt Count (150-450) k/uL MPV Neutrophils % % Lymphocytes % % Monocytes % % Eosinophils % % Basophils % % Neutrophils # (1.3-7.7) k/uL Lymphocytes # (1.0-4.8) k/uL Monocytes # (0-1.0) k/uL Eosinophils # (0-0.7) k/uL Basophils # (0-0.2) k/uL Hypochromasia PT (9.0-12.0) sec INR (<1.2) APTT (22.0-30.0) sec Sample Site R radial ABG pH 7.31 L (7.35-7.45) ABG pCO2 86 H* (35-45) mmHg ABG pO2 51 L* (83-108) mmHg ABG HCO3 44 H* (21-25) mmol/L ABG Total CO2 46 H (19-24) mmol/L ABG O2 Saturation 85.0 L (94-97) % ABG Base Excess 17.5 mmol/L Max Test Yes VBG pH 7.30 L (7.31-7.41) VBG pCO2 94 H* (37-51) mmHg VBG HCO3 45 H (24-28) mmol/L FiO2 36 % Sodium (137-145) mmol/L Potassium (3.5-5.1) mmol/L Chloride (98-107) mmol/L Carbon Dioxide (22-30) mmol/L Anion Gap mmol/L BUN (9-20) mg/dL Creatinine (0.66-1.25) mg/dL Est GFR (CKD-EPI)AfAm (>60 ml/min/1.73 sqM) Est GFR (CKD-EPI)NonAf (>60 ml/min/1.73 sqM) Glucose (74-99) mg/dL Plasma Lactic Acid Km (0.7-2.0) mmol/L Calcium (8.4-10.2) mg/dL Total Bilirubin (0.2-1.3) mg/dL AST (17-59) U/L ALT (4-49) U/L Alkaline Phosphatase (38-126) U/L Troponin I (0.000-0.034) ng/mL NT-Pro-B Natriuret Pep pg/mL Total Protein (6.3-8.2) g/dL Albumin (3.5-5.0) g/dL Disposition Clinical Impression: COPD (chronic obstructive pulmonary disease), Hypoxia, Hypercapnia, BiPAP (biphasic positive airway pressure) dependence, Obesity Disposition: ADMITTED IP TO THIS HOSP Condition: Stable Is patient prescribed a controlled substance at d/c from ED?: No Time of Disposition: 19:23 Decision to Admit Reason: Admit from EC Decision Date: 12/08/21 Decision Time: 19:23
[2021-12-08 18:04] LABS: ALT 16 U/L (4-49); AST 25 U/L (17-59); African American GFR (CKD) >90 (>60 ml/min/1.73 sqM); Albumin 3.6 g/dL (3.5-5.0); Alkaline Phosphatase 41 U/L (38-126); Anion Gap 4 mmol/L; Blood Urea Nitrogen 9 mg/dL (9-20); Calcium 8.4 mg/dL (8.4-10.2); Chloride 97 mmol/L (98-107); Glucose 104 mg/dL (74-99); Non-African American GFR(CKD) >90 (>60 ml/min/1.73 sqM); Potassium 4.6 mmol/L (3.5-5.1); Sodium 141 mmol/L (137-145); Total Bilirubin 0.4 mg/dL (0.2-1.3); Total Protein 6.7 g/dL (6.3-8.2)
[2021-12-08 18:10] LABS: Carbon Dioxide 40 mmol/L (22-30)
[2021-12-08 19:04] LABS: ABG Base Excess 17.5 mmol/L; ABG PH 7.31 (7.35-7.45); ABG TCO2 46 mmol/L (19-24); Allen Test Performed? Yes
--- NOTE | 2021-12-08 19:11 | XR ---
EXAMINATION TYPE: XR chest 2V DATE OF EXAM: 12/08/2021 5:58 PM COMPARISON: Chest x-ray 05/29/2021, chest x-ray 08/22/2020 chest x-ray 08/19/2020 TECHNIQUE: XR chest 2V . CLINICAL INDICATION:Male, 61 years old with history of difficulty breathing; FINDINGS: Lungs/Pleura: Evaluation of the lung apices is limited secondary to patient's chin positioning. Multi focal atelectasis. There is a hazy appearance of the lung bases bilaterally consistent with interstit ial edema, left greater than right. No pneumothorax. Mild blunting of the costophrenic angles. Persis tent tracheal narrowing. Pulmonary vascularity: Mild pulmonary vascular congestion. Heart/mediastinum: Cardiomediastinal silhouette is enlarged and stable. Atherosclerotic calcificatio ns are seen in the aorta. Musculoskeletal: No acute osseous pathology. IMPRESSION: Cardiomegaly, interstitial edema and mild pulmonary vascular congestion. Findings are suggestive of a n exacerbation of congestive heart failure. Correlate with BNP levels.
[2021-12-08] MEDS ORDERED: NALOXONE 0.4 MG/ML 1 ML VIAL IV PRN (19:24)
[2021-12-08 19:31] LABS: ABG PCO2 86 mmHg (35-45)
[2021-12-08 19:32] LABS: ABG HCO3 44 mmol/L (21-25); ABG PO2 51 mmHg (83-108)
[2021-12-08] MEDS ORDERED: FUROSEMIDE 10 MG/ML 10 ML VIAL IV STA (20:07)
[2021-12-08] MEDS ORDERED: IPRATROPIUM-ALBUTEROL 3 ML NEB INHALATION PRN (20:21)
[2021-12-08] MEDS: ENOXAPARIN 40 MG/0.4 ML SYRINGE SQ SCH (21:24)
[2021-12-08] MEDS: HYDROcodone/APAP 10-325MG 1 EACH TAB PO SCH (21:26)
[2021-12-09] MEDS ORDERED: IPRATROPIUM-ALBUTEROL 3 ML NEB INHALATION SCH
[2021-12-09 00:51] LABS: ABG Base Excess 20.7 mmol/L; ABG Oxygen Saturation 96.6 % (94-97); ABG PH 7.37 (7.35-7.45); ABG PO2 78 mmHg (83-108); ABG TCO2 48 mmol/L (19-24); Allen Test Performed? Yes
[2021-12-09 00:58] LABS: ABG HCO3 46 mmol/L (21-25); ABG PCO2 80 mmHg (35-45)
[2021-12-09] MEDS: PANTOPRAZOLE 40 MG TABLET PO SCH (06:28)
[2021-12-09 08:02] LABS: Basophils % (A) 1 %; Eosinophils # (A) 0.4 k/uL (0-0.7); Eosinophils % (A) 5 %; HCT 40.2 % (39.0-53.0); HGB 12.1 gm/dL (13.0-17.5); Hypochromasia Marked; Lymphocytes # (A) 1.7 k/uL (1.0-4.8); Lymphocytes % (A) 21 %; MCH 28.6 pg (25.0-35.0); MCHC 30.1 g/dL (31.0-37.0); MCV 94.8 fL (80.0-100.0); Mean Platelet Volume 7.7; Monocytes # (A) 0.5 k/uL (0-1.0); Monocytes % (A) 7 %; Neutrophils # (A) 5.3 k/uL (1.3-7.7); Neutrophils % (A) 66 %; Platelet Count 285 k/uL (150-450); RBC 4.23 m/uL (4.30-5.90); RDW 13.3 % (11.5-15.5)
[2021-12-09 08:21] LABS: African American GFR (CKD) >90 (>60 ml/min/1.73 sqM); Blood Urea Nitrogen 11 mg/dL (9-20); Calcium 8.7 mg/dL (8.4-10.2); Chloride 96 mmol/L (98-107); Glucose 102 mg/dL (74-99); Non-African American GFR(CKD) >90 (>60 ml/min/1.73 sqM); Sodium 139 mmol/L (137-145)
[2021-12-09] MEDS: IPRATROPIUM-ALBUTEROL 3 ML NEB INHALATION SCH ×4 (08:24→20:07)
[2021-12-09 08:27] LABS: Anion Gap 7 mmol/L
[2021-12-09 08:31] LABS: Carbon Dioxide 36 mmol/L (22-30)
[2021-12-09] MEDS: HYDROcodone/APAP 10-325MG 1 EACH TAB PO SCH ×3 (09:13→20:41)
[2021-12-09] MEDS: ENOXAPARIN 40 MG/0.4 ML SYRINGE SQ SCH (09:14)
[2021-12-09] MEDS ORDERED: FUROSEMIDE 10 MG/ML 10 ML VIAL IV STA (10:42)
[2021-12-09] MEDS ORDERED: methylPREDNISolone SOD SUCCI 40 MG/ML 1 ML VIAL IV SCH ×2 (10:45→17:45)
[2021-12-09] MEDS: DOXYCYCLINE 100 MG CAP PO SCH ×2 (10:58→20:41)
[2021-12-09] MEDS: TERBINAFINE 250 MG TAB PO SCH (10:58)
--- NOTE | 2021-12-09 13:04 | P.CNPUL ---
History of Present Illness Consult date: 12/09/21 Requesting physician: Irineo Mukherjee Reason for consult: COPD Chief complaint: Shortness of breath, cough. History of present illness: This is a 61-year-old white male with history of multiple medical problems, normally sees Dr. Goff in the office for his obstructive sleep apnea syndrome and COPD. Patient is normally maintained on oxygen he is also on BiPAP. However he is not very compliant with his BiPAP. His other medical problems include chronic hypoxic respiratory failure, chronic diastolic congestive heart failure, chronic back pain, chronic cor pulmonale, his last admission to the hospital was back in May of 2021. And he was seen by Dr. Goff at the time on consultation. This time the patient had a similar presentation, patient came in with shortness of breath, confusion at home, EMS brought him in because of his 's concern. When EMS arrived, his O2 saturat ion was in the 70s. Patient was apparently recently discharged from [facility] and he was advised to use the BiPAP machine but is not compliant with it. Apparently on his last admission to [facility], patient had complete workup for brain aneurysm and he is scheduled to have coiling done on December 18. On this presentation, patient had hypoxic and hypercapnic respiratory failure, his pO2 was 51 pCO2 86 pH of 7.31, follow-up ABG on BiPAP showed a pO2 of 78 pCO2 of 80 pH of 7.37. His other labs were unremarkable. Chest x-ray showed cardiomegaly and possibly some mild pulmonary vascular congestion. BNP level was normal. Review of Systems ROS unobtainable: due to mental status (Patient is a very poor historian. When I evaluated the patient, he was confused, he took his BiPAP off, and obviously he has possibly some component of CO2 narcosis.) Past Medical History Past Medical History: COPD, Pneumonia Additional Past Medical History / Comment(s): Pt states prior to today, he was never diagnosed with copd, pneumonia 20 yrs ago, chronic back pain, R arm numbness/tingling and also involves R shoulder. History of Any Multi-Drug Resistant Organisms: None Reported Additional Past Surgical History / Comment(s): Colonoscopies with benign polypectomy, back injections. Past Anesthesia/Blood Transfusion Reactions: No Reported Reaction Past Psychological History: No Psychological Hx Reported Additional Psychological History / Comment(s): Pt resides with his spouse. He is independent. patient uses home oxygen 4-5L /min, uses albuterol inhaler Smoking Status: Former smoker Past Alcohol Use History: None Reported Additional Past Alcohol Use History / Comment(s): Pt started smoking in 1986, smoked half a pack a day; quit smoking 9 months ago. Past Drug Use History: None Reported - Past Family History Father Family Medical History: COPD Additional Family Medical History / Comment(s): Father of copd at the age of 69yrs. He was a smoker. Mother Family Medical History: COPD, Hypertension Additional Family Medical History / Comment(s): Mother at the age of 78yrs. Medications and Allergies Home Medications Medication Instructions Recorded Confirmed Type Hydrocodone/Acetaminophen [[place] 1 tab PO TID 10/14/17 12/08/21 History 10-325] Furosemide [Lasix] 40 mg PO DAILY 90 Days #90 tab 08/24/20 12/08/21 Rx Potassium Chloride [Klor-Con 20] 20 meq PO DAILY 05/29/21 12/08/21 History Terbinafine [LamISIL] 250 mg PO DAILY 05/29/21 12/08/21 History Ipratropium-Albuterol Nebulize 3 ml INHALATION RT-Q2H PRN 30 Days 05/30/21 12/08/21 Rx [Duoneb 0.5 mg-3 mg/3 ml Soln] #120 ml Dulaglutide [Trulicity] 1.5 mg SQ SA 10/12/21 12/08/21 History Omeprazole 40 mg PO DAILY 10/12/21 12/08/21 History Budesonide-Formot 160-4.5 Mcg 2 puff INHALATION RT-BID 12/08/21 12/08/21 History [Symbicort 160-4.5 Mcg Inhaler] Clopidogrel [Plavix] See Taper PO DIRECTED 12/08/21 12/08/21 History Allergies Allergy/AdvReac Type Severity Reaction Status Date / Time No Known Allergies Allergy Verified 10/12/21 22:41 Physical Exam Vitals: Vital Signs Temp Pulse Pulse Resp BP BP Pulse Ox 12/09/21 11:43 84 12/09/21 11:41 61 23 139/87 95 12/09/21 11:32 80 12/09/21 11:30 12/09/21 09:10 97.9 F 65 20 163/82 97 12/09/21 08:37 92 12/09/21 08:25 92 12/09/21 03:12 97.7 F 89 22 139/69 94 L 12/09/21 02:00 22 12/09/21 01:43 97.6 F 85 20 160/84 91 L 12/09/21 01:22 99.0 F 90 20 130/45 96 12/08/21 23:23 12/08/21 22:57 89 20 142/82 96 12/08/21 20:00 89 24 146/69 99 12/08/21 19:29 12/08/21 19:28 12/08/21 18:07 82 22 128/102 95 12/08/21 15:57 98.0 F 76 30 H 156/75 84 L FiO2 12/09/21 11:43 12/09/21 11:41 30 12/09/21 11:32 12/09/21 11:30 30 12/09/21 09:10 40 12/09/21 08:37 12/09/21 08:25 12/09/21 03:12 12/09/21 02:00 12/09/21 01:43 12/09/21 01:22 12/08/21 23:23 40 12/08/21 22:57 12/08/21 20:00 12/08/21 19:29 40 12/08/21 19:28 40 12/08/21 18:07 12/08/21 15:57 Intake and Output 12/08/21 12/09/21 12/09/21 22:59 06:59 14:59 Intake Total 180 Output Total 300 Balance -300 180 Intake: Oral 180 Output: Urine 300 Other: Voiding Method Toilet Toilet # Voids 1 Weight 104.326 kg 104.326 kg GENERAL EXAM: Revealed 61-year-old white male, morbidly obese, confused, noted to have intermittent episodes of myoclonic jerks. HEAD: Normocephalic/atraumatic. ENT: PERRLA, EOMI, short obese neck, no neck masses, moist mucous membranes. No JVD was appreciated. Patient had to be placed on BiPAP as soon as we evaluated him. CHEST: No chest wall deformity. Symmetrical expansion. LUNGS: Diminished breath sound bilaterally no rhonchi no wheezes CVS: Distant S1 and S2, no S3 gallop. ABDOMEN: Obese, Soft, nontender. No hepatosplenomegaly, normal bowel sounds, no guarding or rigidity. EXTREMITIES: No clubbing, chronic lower extremity edema was noted MUSCULOSKELETAL: Muscle strength and tone normal. SKIN: No rashes CENTRAL NERVOUS SYSTEM: Patient seems to be slow and confused, had to place him back on BiPAP immediately. PSYCHIATRIC: Depressed mood, flat affect, poor mental status, confused. Results - Laboratory Findings CBC and BMP: 12/09/21 06:49 12/09/21 06:49 ABG ABG pH 7.37 (7.35-7.45) 12/09/21 00:50 ABG pCO2 80 mmHg (35-45) H* 12/09/21 00:50 ABG pO2 78 mmHg (83-108) L 12/09/21 00:50 ABG O2 Saturation 96.6 % (94-97) 12/09/21 00:50 PT/INR, D-dimer PT 9.7 sec (9.0-12.0) 12/08/21 17:32 INR 0.9 (<1.2) 12/08/21 17:32 Abnormal lab findings: Abnormal Labs 12/08/21 12/08/21 12/08/21 17:32 17:32 17:32 RBC 4.23 L Hgb 12.0 L MCHC 29.9 L ABG pH ABG pCO2 ABG pO2 ABG HCO3 ABG Total CO2 ABG O2 Saturation VBG pH 7.30 L VBG pCO2 94 H* VBG HCO3 45 H Chloride 97 L Carbon Dioxide 40 H Creatinine 0.56 L Glucose 104 H 12/08/21 12/09/21 12/09/21 19:01 00:50 06:49 RBC 4.23 L Hgb 12.1 L MCHC 30.1 L ABG pH 7.31 L ABG pCO2 86 H* 80 H* ABG pO2 51 L* 78 L ABG HCO3 44 H* 46 H* ABG Total CO2 46 H 48 H ABG O2 Saturation 85.0 L VBG pH VBG pCO2 VBG HCO3 Chloride Carbon Dioxide Creatinine Glucose 12/09/21 06:49 RBC Hgb MCHC ABG pH ABG pCO2 ABG pO2 ABG HCO3 ABG Total CO2 ABG O2 Saturation VBG pH VBG pCO2 VBG HCO3 Chloride 96 L Carbon Dioxide 36 H Creatinine 0.47 L Glucose 102 H - Diagnostic Findings Chest x-ray: image reviewed (As noted in HPI.) Assessment and Plan Assessment: Impression: Acute on chronic hypoxic and hypercapnic respiratory failure Chronic diastolic congestive heart failure Severe COPD Obstructive sleep apnea syndrome Morbid obesity Chronic cor pulmonale Former smoker, in remission for the last one year. Chronic hypercapnic respiratory failure, noncompliant with BiPAP/CPAP. Recommendation: Patient to go back on BiPAP 26/10. Titrate FiO2 to maintain O2 saturation above 90% Resume bronchodilators. GI and DVT prophylaxis. Apparently the patient has poor tolerance to steroids according to he hallucinates on steroids, hence we will avoid steroids if possible. Continue diuretics/Lasix Continue Lovenox Doxycycline 100 twice a day GI prophylaxis We will continue to follow Overall prognosis is definitely poor and guarded. Time with Patient: Greater than 30
[2021-12-09] MEDS ORDERED: DEXTROSE 50% SYRINGE 50 ML IVP PRN ×2 (17:47)
--- NOTE | 2021-12-09 17:49 | P.HPIM ---
History of Present Illness H&P Date: 12/09/21 Chief Complaint: Increasing confusion I'm rounding for Dr. Irineo Mukherjee This is a 61-year-old patient who follows with Dr. Irineo Mukherjee. Chronic stable medical conditions include diabetes, GERD, home oxygen 4-5 L. Ex-smoker. Patient is found to be confused at home. called EMS. Pulse ox was found to be in the 70s. He normally wears 4.5 L of oxygen at home. Was recently discharged from [facility]. Supposed to have a BiPAP some follows the [employer]. Has not got a machine. Does have a CPAP. Does not use the same. No fever or cough chest pain reported. He has a known cerebral aneurysm and is due for intervention down the road with coiling. On December 18. This morning patient is on a BiPAP. Somewhat tired and unable to give much of a history. Though arousable. Review of systems: Cannot be obtained as patient is rather drowsy Past medical history to include: Home oxygen 4.5 L, COPD, cerebral aneurysm pending coiling, obesity Social history: Lives with his . Home oxygen 4-5 L. Smoked half a pack a day since 1986 stopped 9 months ago. No alcohol. Family history: COPD Physical examination: VITAL SIGNS: 98, 76, 30, 156/75, 84% on room air GENERAL: BMI 34, laying in bed, lethargic with a BiPAP. EYES: Pupils equal. Conjunctiva normal. HEENT: External appearance of nose and ears normal, oral cavity grossly normal. NECK: JVD unable to assess; masses not palpable. HEART: First and second heart sounds are normal; no edema. LUNGS: Respiratory rate increased, accessory muscles working, diminished breath sounds; . ABDOMEN: Soft, nontender, liver spleen not palpable, no masses palpable. PSYCH: [Lethargic, unable to assess l. MUSCULOSKELETAL:No Clubbing/cyanosis;muscles-grossly intact NEUROLOGICAL: Cranial nerves grossly intact; no facial asymmetry, power and sensation grossly intact. LYMPHATICS: No lymph nodes palpable in the axilla and neck INVESTIGATIONS, reviewed in the clinical context: White count 8 hemoglobin 12 platelets 25 potassium 4 creatinine 0.47 Initial ABG: PH 7.3 pCO2 86 pO2 51 on 36% FiO2 EKG tracing personally reviewed by me-normal sinus rhythm. Rate 76 Chest x-ray film personally reviewed by me-possible basilar infiltrates ProBNP 123. Pro-calcitonin 0.07 Assessment and plan: -Acute hypoxic metabolic encephalopathy from CO2 retention -Acute on chronic hypoxic and hypercapnic respiratory failure from underlying COPD in obesity BiPAP -Acute COPD exacerbation and a previous smoker DuoNeb, nebulized and IV steroids -GERD Protonix 40 mg a day -Obesity BMI 34 -Diabetes mellitus type 2, chronically ontrulicity Follow Accu-Cheks with sliding scale DuoNeb, BiPAP. Nebulized and IV steroids. 2-D echo. Doubt CHF. Rule out cor pulmonale. Pulmonary consulted. Past Medical History Past Medical History: COPD, Pneumonia Additional Past Medical History / Comment(s): Pt states prior to today, he was never diagnosed with copd, pneumonia 20 yrs ago, chronic back pain, R arm numbness/tingling and also involves R shoulder. History of Any Multi-Drug Resistant Organisms: None Reported Additional Past Surgical History / Comment(s): Colonoscopies with benign polypectomy, back injections. Past Anesthesia/Blood Transfusion Reactions: No Reported Reaction Past Psychological History: No Psychological Hx Reported Additional Psychological History / Comment(s): Pt resides with his spouse. He is independent. patient uses home oxygen 4-5L /min, uses albuterol inhaler Smoking Status: Former smoker Past Alcohol Use History: None Reported Additional Past Alcohol Use History / Comment(s): Pt started smoking in 1986, smoked half a pack a day; quit smoking 9 months ago. Past Drug Use History: None Reported - Past Family History Father Family Medical History: COPD Additional Family Medical History / Comment(s): Father of copd at the age of 69yrs. He was a smoker. Mother Family Medical History: COPD, Hypertension Additional Family Medical History / Comment(s): Mother at the age of 78yrs. Medications and Allergies Home Medications Medication Instructions Recorded Confirmed Type Hydrocodone/Acetaminophen [[place] 1 tab PO TID 10/14/17 12/08/21 History 10-325] Furosemide [Lasix] 40 mg PO DAILY 90 Days #90 tab 08/24/20 12/08/21 Rx Potassium Chloride [Klor-Con 20] 20 meq PO DAILY 05/29/21 12/08/21 History Terbinafine [LamISIL] 250 mg PO DAILY 05/29/21 12/08/21 History Ipratropium-Albuterol Nebulize 3 ml INHALATION RT-Q2H PRN 30 Days 05/30/21 12/08/21 Rx [Duoneb 0.5 mg-3 mg/3 ml Soln] #120 ml Dulaglutide [Trulicity] 1.5 mg SQ SA 10/12/21 12/08/21 History Omeprazole 40 mg PO DAILY 10/12/21 12/08/21 History Budesonide-Formot 160-4.5 Mcg 2 puff INHALATION RT-BID 12/08/21 12/08/21 History [Symbicort 160-4.5 Mcg Inhaler] Clopidogrel [Plavix] See Taper PO DIRECTED 12/08/21 12/08/21 History Allergies Allergy/AdvReac Type Severity Reaction Status Date / Time No Known Allergies Allergy Verified 10/12/21 22:41 Physical Exam Vitals: Vital Signs Temp Pulse Pulse Resp BP BP Pulse Ox 12/09/21 09:10 97.9 F 65 20 163/82 97 12/09/21 08:37 92 12/09/21 08:25 92 12/09/21 03:12 97.7 F 89 22 139/69 94 L 12/09/21 02:00 22 12/09/21 01:43 97.6 F 85 20 160/84 91 L 12/09/21 01:22 99.0 F 90 20 130/45 96 12/08/21 23:23 12/08/21 22:57 89 20 142/82 96 12/08/21 20:00 89 24 146/69 99 12/08/21 19:29 12/08/21 19:28 12/08/21 18:07 82 22 128/102 95 12/08/21 15:57 98.0 F 76 30 H 156/75 84 L FiO2 12/09/21 09:10 40 12/09/21 08:37 12/09/21 08:25 12/09/21 03:12 12/09/21 02:00 12/09/21 01:43 12/09/21 01:22 12/08/21 23:23 40 12/08/21 22:57 12/08/21 20:00 12/08/21 19:29 40 12/08/21 19:28 40 12/08/21 18:07 12/08/21 15:57 Intake and Output 12/08/21 12/09/21 12/09/21 22:59 06:59 14:59 Intake Total 180 Output Total 300 Balance -300 180 Intake: Oral 180 Output: Urine 300 Other: Voiding Method Toilet Toilet Weight 104.326 kg 104.326 kg Results CBC & Chem 7: 12/09/21 06:49 12/09/21 06:49 Labs: Abnormal Lab Results - Last 24 Hours (Table) 12/08/21 12/08/21 12/08/21 Range/Units 17:32 17:32 17:32 RBC 4.23 L (4.30-5.90) m/uL Hgb 12.0 L (13.0-17.5) gm/dL MCHC 29.9 L (31.0-37.0) g/dL ABG pH (7.35-7.45) ABG pCO2 (35-45) mmHg ABG pO2 (83-108) mmHg ABG HCO3 (21-25) mmol/L ABG Total CO2 (19-24) mmol/L ABG O2 Saturation (94-97) % VBG pH 7.30 L (7.31-7.41) VBG pCO2 94 H* (37-51) mmHg VBG HCO3 45 H (24-28) mmol/L Chloride 97 L (98-107) mmol/L Carbon Dioxide 40 H (22-30) mmol/L Creatinine 0.56 L (0.66-1.25) mg/dL Glucose 104 H (74-99) mg/dL 12/08/21 12/09/21 12/09/21 Range/Units 19:01 00:50 06:49 RBC 4.23 L (4.30-5.90) m/uL Hgb 12.1 L (13.0-17.5) gm/dL MCHC 30.1 L (31.0-37.0) g/dL ABG pH 7.31 L (7.35-7.45) ABG pCO2 86 H* 80 H* (35-45) mmHg ABG pO2 51 L* 78 L (83-108) mmHg ABG HCO3 44 H* 46 H* (21-25) mmol/L ABG Total CO2 46 H 48 H (19-24) mmol/L ABG O2 Saturation 85.0 L (94-97) % VBG pH (7.31-7.41) VBG pCO2 (37-51) mmHg VBG HCO3 (24-28) mmol/L Chloride (98-107) mmol/L Carbon Dioxide (22-30) mmol/L Creatinine (0.66-1.25) mg/dL Glucose (74-99) mg/dL 12/09/21 Range/Units 06:49 RBC (4.30-5.90) m/uL Hgb (13.0-17.5) gm/dL MCHC (31.0-37.0) g/dL ABG pH (7.35-7.45) ABG pCO2 (35-45) mmHg ABG pO2 (83-108) mmHg ABG HCO3 (21-25) mmol/L ABG Total CO2 (19-24) mmol/L ABG O2 Saturation (94-97) % VBG pH (7.31-7.41) VBG pCO2 (37-51) mmHg VBG HCO3 (24-28) mmol/L Chloride 96 L (98-107) mmol/L Carbon Dioxide 36 H (22-30) mmol/L Creatinine 0.47 L (0.66-1.25) mg/dL Glucose 102 H (74-99) mg/dL Thrombosis Risk Factor Assmnt - Choose All That Apply Any of the Below Risk Factors Present?: Yes Each Factor Represents 1 point: Abnormal pulmonary function (COPD), Age 41-60 years, Obesity (BMI >25) Other Risk Factors: No Other congenital or acquired thrombophilia - If yes, enter type in comment: No Thrombosis Risk Factor Assessment Total Risk Factor Score: 3 Thrombosis Risk Factor Assessment Level: Moderate Risk
[2021-12-09] MEDS: INSULIN ASPART (NovoLOG) 100 UNIT/ML VIAL SQ SCH (17:57)
[2021-12-09] MEDS ORDERED: SYMBICORT 160-4.5 MCG INHALER INHALATION SCH ×2 (20:00)
[2021-12-09] MEDS ORDERED: SYMBICORT 80-4.5 MCG INHALER INHALATION SCH (20:00)
[2021-12-09 20:06] LABS: Glucose,Whole Blood 149 mg/dL (70-110)
[2021-12-09] MEDS: BUDESONIDE 1 MG/2 ML NEBU INHALATION SCH (20:07)
[2021-12-10] MEDS: INSULIN ASPART (NovoLOG) 100 UNIT/ML VIAL SQ SCH ×3 (06:16→17:02)
[2021-12-10 06:18] LABS: Glucose,Whole Blood 110 mg/dL (70-110)
[2021-12-10] MEDS: PANTOPRAZOLE 40 MG TABLET PO SCH (06:44)
[2021-12-10] MEDS: BUDESONIDE 1 MG/2 ML NEBU INHALATION SCH ×2 (07:10→19:49)
[2021-12-10] MEDS: IPRATROPIUM-ALBUTEROL 3 ML NEB INHALATION SCH ×4 (07:10→19:48)
[2021-12-10 07:55] LABS: African American GFR (CKD) >90 (>60 ml/min/1.73 sqM); Anion Gap 6 mmol/L; Blood Urea Nitrogen 12 mg/dL (9-20); Calcium 8.6 mg/dL (8.4-10.2); Carbon Dioxide 39 mmol/L (22-30); Chloride 92 mmol/L (98-107); Glucose 99 mg/dL (74-99); Non-African American GFR(CKD) >90 (>60 ml/min/1.73 sqM); Potassium 3.5 mmol/L (3.5-5.1); Sodium 137 mmol/L (137-145)
[2021-12-10] MEDS: TERBINAFINE 250 MG TAB PO SCH (08:54)
[2021-12-10] MEDS: HYDROcodone/APAP 10-325MG 1 EACH TAB PO SCH ×3 (08:54→20:47)
[2021-12-10] MEDS: DOXYCYCLINE 100 MG CAP PO SCH ×2 (08:54→20:47)
[2021-12-10] MEDS: ENOXAPARIN 40 MG/0.4 ML SYRINGE SQ SCH (08:55)
--- NOTE | 2021-12-10 11:14 | P.CNNES ---
History of Present Illness Consult date: 12/09/21 Requesting physician: Suamya Mohan Reason for Consult: Myoclonic jerks History of Present Illness: Patient is a 61-year-old male who came to the hospital by ambulance yesterday at 3:56 PM for difficulty breathing. Patient has history of COPD, morbid obesity and cerebral aneurysm. Patient states that he has been having tremors/shaking for last couple months. He has been diagnosed with acute on chronic hypoxic and hypercapnic respiratory failure, chronic diastolic CHF, severe COPD, obstructive sleep apnea, chronic cor pulmonale and a former smoker. He was noted to have myoclonic jerks. At present when I examined him at this time, I did not see any myoclonic jerks. Patient states that he smoked half pack per day for 20 years, quit smoking in March 2021. He denies hypertension or diabetes. EKG shows sinus rhythm. Chest x-ray showed cardiomegaly, interstitial edema and mild pulmonary vascular congestion. Findings are suggestive of an exacerbation of CHF. Correlate with BNP levels. Blood test shows normal WBC hemoglobin 12.0 platelets 268, ABG with pH of 7.31, pCO2 86, due to 51 and saturation 85%. Electrolytes and renal functions are normal. Hepatic panel normal, proBNP 123. Patient also tells me that he has been diagnosed with cerebral aneurysm for which he is going to undergo surgery by Dr. Cosme on 12/18/2021 at one of the [facility] facility. He denies any family history of cerebral aneurysm. Patient had a normal CTA of the neck on 11/19/2021. A CTA of the head revealed 2.5 cm aneurysm is seen near the anterior communicating artery. This was diagnosed after patient presented to the ER with altered mental status, unresponsiveness. He was diagnosed with severe respiratory failure and was intubated, transferred to [facility]. Review of Systems As mentioned above in detail. He has some shortness of breath. No chest pain at this time. No abdominal pain. No double vision or loss of vision. All other review of systems reviewed and noncontributory to the present complaint. Past Medical History Past Medical History: COPD, Pneumonia Additional Past Medical History / Comment(s): Pt states prior to today, he was never diagnosed with copd, pneumonia 20 yrs ago, chronic back pain, R arm numbness/tingling and also involves R shoulder. History of Any Multi-Drug Resistant Organisms: None Reported Additional Past Surgical History / Comment(s): Colonoscopies with benign polypectomy, back injections. Past Anesthesia/Blood Transfusion Reactions: No Reported Reaction Past Psychological History: No Psychological Hx Reported Additional Psychological History / Comment(s): Pt resides with his spouse. He is independent. patient uses home oxygen 4-5L /min, uses albuterol inhaler Smoking Status: Former smoker Past Alcohol Use History: None Reported Additional Past Alcohol Use History / Comment(s): Pt started smoking in 1986, smoked half a pack a day; quit smoking 9 months ago. Past Drug Use History: None Reported - Past Family History Father Family Medical History: COPD Additional Family Medical History / Comment(s): Father of copd at the age of 69yrs. He was a smoker. Mother Family Medical History: COPD, Hypertension Additional Family Medical History / Comment(s): Mother at the age of 78yrs. Medications and Allergies Home Medications Medication Instructions Recorded Confirmed Type Hydrocodone/Acetaminophen [[place] 1 tab PO TID 10/14/17 12/08/21 History 10-325] Furosemide [Lasix] 40 mg PO DAILY 90 Days #90 tab 08/24/20 12/08/21 Rx Potassium Chloride [Klor-Con 20] 20 meq PO DAILY 05/29/21 12/08/21 History Terbinafine [LamISIL] 250 mg PO DAILY 05/29/21 12/08/21 History Ipratropium-Albuterol Nebulize 3 ml INHALATION RT-Q2H PRN 30 Days 05/30/21 12/08/21 Rx [Duoneb 0.5 mg-3 mg/3 ml Soln] #120 ml Dulaglutide [Trulicity] 1.5 mg SQ SA 10/12/21 12/08/21 History Omeprazole 40 mg PO DAILY 10/12/21 12/08/21 History Budesonide-Formot 160-4.5 Mcg 2 puff INHALATION RT-BID 12/08/21 12/08/21 History [Symbicort 160-4.5 Mcg Inhaler] Clopidogrel [Plavix] See Taper PO DIRECTED 12/08/21 12/08/21 History Allergies Allergy/AdvReac Type Severity Reaction Status Date / Time No Known Allergies Allergy Verified 10/12/21 22:41 Physical Examination - Vital Signs Vital Signs: Vital Signs Temp Pulse Pulse Resp BP BP Pulse Ox 12/09/21 15:38 78 12/09/21 15:31 77 12/09/21 15:29 12/09/21 15:04 97.6 F 83 24 154/86 91 L 12/09/21 13:15 61 12/09/21 11:43 84 12/09/21 11:41 61 23 139/87 95 12/09/21 11:32 80 12/09/21 11:30 12/09/21 09:10 97.9 F 65 20 163/82 97 12/09/21 08:37 92 12/09/21 08:25 92 12/09/21 03:12 97.7 F 89 22 139/69 94 L 12/09/21 02:00 22 12/09/21 01:43 97.6 F 85 20 160/84 91 L 12/09/21 01:22 99.0 F 90 20 130/45 96 12/08/21 23:23 12/08/21 22:57 89 20 142/82 96 12/08/21 20:00 89 24 146/69 99 12/08/21 19:29 12/08/21 19:28 12/08/21 18:07 82 22 128/102 95 FiO2 12/09/21 15:38 12/09/21 15:31 12/09/21 15:29 30 12/09/21 15:04 30 12/09/21 13:15 12/09/21 11:43 12/09/21 11:41 30 12/09/21 11:32 12/09/21 11:30 30 12/09/21 09:10 40 12/09/21 08:37 12/09/21 08:25 12/09/21 03:12 12/09/21 02:00 12/09/21 01:43 12/09/21 01:22 12/08/21 23:23 40 12/08/21 22:57 12/08/21 20:00 12/08/21 19:29 40 12/08/21 19:28 40 12/08/21 18:07 Intake and Output 12/09/21 12/09/21 12/09/21 06:59 14:59 22:59 Intake Total 180 Output Total 300 1250 Balance -300 -1070 Intake: Oral 180 Output: Urine 300 1250 Other: Voiding Method Toilet Toilet # Voids 1 Weight 104.326 kg Patient is a middle aged male, morbidly obese, in no acute distress. Patient is alert awake oriented to time place and person. Patient states it is December and the year is 2021 and that he is in [facility] and knows name of the current president. Speech and language functions are normal. Attention, concentration and fund of knowledge is adequate. On cranial examination, pupils are round and reacting to light, visual purdy are full on confrontation, with no neglect on double simultaneous stimulation. His extraocular muscles are intact with no nystagmus. Face is symmetric, tongue protrudes to the midline. Palatal elevation and sensation normal, hearing and shoulder shrug normal, facial sensation normal. Shoulder shrug normal. On muscle strength testing, there is no pronator drift and the strength is normal in arms and legs distally and proximally. Deep tendon reflexes are symmetric, 1+ in the upper limbs at biceps and brachioradialis, trace at the knees, 0 ankles and plantars are downgoing. Sensory to touch is equal with no neglect. Cerebellar function showed no ataxia for [id number]-ad-smmn testing. Patient has mild to moderate fine tremor for vbfexc-qk-etst testing bilaterally. Mild fine tremors of outstretched hands. No tremors at rest. No dysdiadochokinesia. Tone and bulk of muscles normal. Gait deferred On general examination, there is no carotid bruit or murmur, S1-S2 audible. Abdomen is soft nontender. No organomegaly, bowel sounds present. Chest is clear. Patient has peripheral edema. Results - Laboratory Findings CBC and BMP: 12/09/21 06:49 12/10/21 06:32 Abnormal Lab Findings: Abnormal Labs 12/08/21 12/08/21 12/08/21 17:32 17:32 17:32 RBC 4.23 L Hgb 12.0 L MCHC 29.9 L ABG pH ABG pCO2 ABG pO2 ABG HCO3 ABG Total CO2 ABG O2 Saturation VBG pH 7.30 L VBG pCO2 94 H* VBG HCO3 45 H Chloride 97 L Carbon Dioxide 40 H Creatinine 0.56 L Glucose 104 H 12/08/21 12/09/21 12/09/21 19:01 00:50 06:49 RBC 4.23 L Hgb 12.1 L MCHC 30.1 L ABG pH 7.31 L ABG pCO2 86 H* 80 H* ABG pO2 51 L* 78 L ABG HCO3 44 H* 46 H* ABG Total CO2 46 H 48 H ABG O2 Saturation 85.0 L VBG pH VBG pCO2 VBG HCO3 Chloride Carbon Dioxide Creatinine Glucose 12/09/21 06:49 RBC Hgb MCHC ABG pH ABG pCO2 ABG pO2 ABG HCO3 ABG Total CO2 ABG O2 Saturation VBG pH VBG pCO2 VBG HCO3 Chloride 96 L Carbon Dioxide 36 H Creatinine 0.47 L Glucose 102 H Assessment and Plan Assessment: * Myoclonic jerks, now seems to have resolved. He has mild postural fine metabolic tremor, likely related to underlying mild metabolic encephalopathy. No evidence of mild myoclonic jerks noticed at this time. * COPD with exacerbation * Acute on chronic hypoxic and hypercapnic respiratory failure * CO2 retainer * Chronic diastolic congestive heart failure * Morbid obesity * Former smoker * Obstructive sleep apnea * Cerebral aneurysm 2.5 cm near the anterior communicating artery Plan: * Patient's tremors are very mild, metabolic tremors. No myoclonic jerks noted on today's examination. * I will revisit patient tomorrow one more time, to see if the tremors have reappeared * Treatment of medical/metabolic/cardiopulmonary conditions as per IM and pulmonary. * Check TSH and free T4. * Neurology will follow clinically.
[2021-12-10 12:02] LABS: Glucose,Whole Blood 118 mg/dL (70-110)
--- NOTE | 2021-12-10 12:14 | P.PN ---
Subjective Progress Note Date: 12/10/21 Principal diagnosis: Shortness of breath, and cough This is a 61-year-old white male with history of multiple medical problems, normally sees Dr. Goff in the office for his obstructive sleep apnea syndrome and COPD. Patient is normally maintained on oxygen he is also on BiP AP. However he is not very compliant with his BiPAP. His other medical problems include chronic hypoxic respiratory failure, chronic diastolic congestive heart failure, chronic back pain, chronic cor pulmonale, his last admission to the hospital was back in May of 2021. And he was seen by Dr. Goff at the time on consultation. This time the patient had a similar presentation, patient came in with shortness of breath, confusion at home, EMS brought him in because of his 's concern. When EMS arrived, his O2 saturation was in the 70s. Patient was apparently recently discharged from [facility] and he was advised to use the BiPAP machine but is not compliant with it. Apparently on his last admission to [facility], patient had complete workup for brain aneurysm and he is scheduled to have coiling done on December 18. On this presentation, patient had hypoxic and hypercapnic respiratory failure, his pO2 was 51 pCO2 86 pH of 7.31, follow-up ABG on BiPAP showed a pO2 of 78 pCO2 of 80 pH of 7.37. His other labs were unremarkable. Chest x-ray showed cardiomegaly and possibly some mild pulmonary vascular congestion. BNP level was normal. On 12/10/2021 patient seen in follow-up on selective care unit. Patient is much more awake, less confused, he is on BiPAP support with pressures of 16/5 and FiO2 of 30%, he is answering questions appropriately. Vital signs have been stable, his O2 saturations on BiPAP settings are at 98%, he is been tolerating nasal cannula trials, with 4 L of oxygen per nasal cannula satting 91%, breathing comfortably, his been afebrile. Today's labs have been reviewed, his sodium is 137, potassium is 3.5, chloride is 92, CO2 39, BUN is 12, and creatinine 0.49. He remains on doxycycline, and breathing treatments. No IV steroids as the patient cannot tolerate IV steroids and becomes quite delirious. Patient continues on DuoNeb Objective - Vital Signs Vital signs: Vital Signs Temp 97.9 F 12/10/21 08:52 Pulse 78 12/10/21 11:42 Resp 22 12/10/21 11:11 BP 124/76 12/10/21 11:11 Pulse Ox 91 L 12/10/21 11:11 FiO2 30 12/10/21 08:52 Intake & Output 12/09/21 12/10/21 12/10/21 18:59 06:59 18:59 Intake Total 180 Output Total 1650 350 Balance -1470 -350 Intake: Oral 180 Output: Urine 1650 350 Other: Voiding Method Toilet Urinal Urinal # Voids 1 1 - Exam GENERAL EXAM: Alert, pleasant, 61-year-old morbidly obese white male on BiPAP support with pressures of 16/5 and FiO2 of 30%, comfortable in no apparent distress. HEAD: Normocephalic/atraumatic. EYES: Normal reaction of pupils, equal size. Conjunctiva pink, sclera white. NOSE: Clear with pink turbinates. THROAT: No erythema or exudates. NECK: No masses, no JVD, no thyroid enlargement, no adenopathy. CHEST: No chest wall deformity. Symmetrical expansion. LUNGS: Equal air entry with diminished breath sounds at the bases CVS: Regular rate and rhythm, normal S1 and S2, no gallops, no murmurs, no rubs ABDOMEN: Soft, nontender. No hepatosplenomegaly, normal bowel sounds, no guarding or rigidity. EXTREMITIES: No clubbing, 1+ lower extremity edema, no cyanosis, 2+ pulses and upper and lower extremities. MUSCULOSKELETAL: Muscle strength and tone normal. SPINE: No scoliosis or deformity SKIN: No rashes CENTRAL NERVOUS SYSTEM: Alert and oriented -3. No focal deficits, tone is normal in all 4 extremities. PSYCHIATRIC: Alert and oriented -3. Appropriate affect. Intact judgment and i nsight. - Labs CBC & Chem 7: 12/09/21 06:49 12/10/21 06:32 Labs: Abnormal Lab Results - Last 24 Hours (Table) 12/09/21 12/10/21 12/10/21 Range/Units 20:04 06:32 11:59 Chloride 92 L (98-107) mmol/L Carbon Dioxide 39 H (22-30) mmol/L Creatinine 0.49 L (0.66-1.25) mg/dL POC Glucose (mg/dL) 149 H 118 H (70-110) mg/dL Assessment and Plan Plan: Assessment: #1. Acute on chronic hypoxic and hypercapnic respiratory failure #2. Chronic diastolic CHF #3. Severe COPD #4. Obstructive sleep apnea syndrome #5. Morbid obesity #6. Chronic cor pulmonale #7. Former smoker Plan: Patient is doing better Much more awake and less confused Continue with BiPAP support at bedtime and as needed through the day Patient will be trialed on nasal cannula Continue with DuoNeb, and doxycycline Continue Lovenox for DVT prophylaxis Avoid steroids if possible, as the patient becomes quite delirious, starts hallucinating We'll continue to follow I have personally seen and examined the patient, performed the documentation and the assessment and plan as written. Number of minutes spent on the visit: [10] Time with Patient: Less than 30
[2021-12-10 12:27] LABS: T4, Free (Free Thyroxine) 1.58 ng/dL (0.78-2.19)
[2021-12-10 17:01] LABS: Glucose,Whole Blood 122 mg/dL (70-110)
--- NOTE | 2021-12-10 17:37 | P.PN ---
Progress Note - Text Progress Note Date: 12/10/21 Chief Complaint: Increasing confusion I'm rounding for Dr. Irineo Mukherjee This is a 61-year-old patient who follows with Dr. Irineo Mukherjee. Chronic stable medical conditions include diabetes, GERD, home oxygen 4-5 L. Ex-smoker. Patient is found to be confused at home. called EMS. Pulse ox was found to be in the 70s. He normally wears 4.5 L of oxygen at home. Was recently discharged from [facility]. Supposed to have a BiPAP some follows the [employer]. Has not got a machine. Does have a CPAP. Does not use the same. No fever or cough chest pain reported. He has a known cerebral aneurysm and is due for intervention down the road with coiling. On December 18. This morning patient is on a BiPAP. Somewhat tired and unable to give much of a history. Though arousable. Admitted with metabolic/hypoxic encephalopathy, COPD exacerbation. Patient BiPAP. Bronchodilators. December 10: Laying in bed. More awake today. Conversing. On nasal cannula. Did tolerate a diet. Slight cough. Active Medications Hydrocodone Bitart/Acetaminophen (Hydrocodone/Apap 10-325mg 1 Each Tab) 1 each PO TID [facility] Last Admin: 12/10/21 15:06 Dose: Not Given Albuterol/Ipratropium (Ipratropium-Albuterol 3 Ml Neb) 3 ml INHALATION RT-QID [facility] Last Admin: 12/10/21 16:04 Dose: 3 ml Albuterol/Ipratropium (Ipratropium-Albuterol 3 Ml Neb) 3 ml INHALATION RT-Q2H PRN PRN Reason: Shortness Of Breath Or Wheezing Budesonide (Budesonide 1 Mg/2 Ml Nebu) 1 mg INHALATION RT-BID [facility] Last Admin: 12/10/21 07:10 Dose: 1 mg Dextrose/Water (Dextrose 50% Syringe 50 Ml) 25 ml IVP PER PROTOCOL PRN; Protocol PRN Reason: Hypoglycemia Dextrose/Water (Dextrose 50% Syringe 50 Ml) 50 ml IVP PER PROTOCOL PRN; Protocol PRN Reason: Hypoglycemia Doxycycline Monohydrate (Doxycycline 100 Mg Cap) 100 mg PO BID [facility]; Protocol Last Admin: 12/10/21 08:54 Dose: 100 mg Enoxaparin Sodium (Enoxaparin 40 Mg/0.4 Ml Syringe) 40 mg SQ DAILY [facility] Last Admin: 12/10/21 08:55 Dose: 40 mg Insulin Aspart (Insulin Aspart (Novolog) 100 Unit/Ml Vial) 0 unit SQ AC-TID [facility]; Protocol Last Admin: 12/10/21 17:02 Dose: Not Given Naloxone HCl (Naloxone 0.4 Mg/Ml 1 Ml Vial) 0.2 mg IV Q2M PRN PRN Reason: Opioid Reversal Pantoprazole Sodium (Pantoprazole 40 Mg Tablet) 40 mg PO AC-BRKFST [facility] Last Admin: 12/10/21 06:44 Dose: 40 mg Terbinafine HCl (Terbinafine 250 Mg Tab) 250 mg PO DAILY [facility]; Protocol Last Admin: 12/10/21 08:54 Dose: 250 mg Past medical history to include: Home oxygen 4.5 L, COPD, cerebral aneurysm pending coiling, obesity Social history: Lives with his . Home oxygen 4-5 L. Smoked half a pack a day since 1986 stopped 9 months ago. No alcohol. Family history: COPD Physical examination: VITAL SIGNS: 98.2, 80, 20, 1 22 x 66, 92% on 4 L GENERAL: Laying in bed, more awake conversing EYES: Pupils equal. Conjunctiva normal. HEENT: External appearance of nose and ears normal, oral cavity grossly normal. NECK: JVD unable to assess; masses not palpable. HEART: First and second heart sounds are normal; no edema. LUNGS: Respiratory rate increased, diminished breath sounds; . ABDOMEN: Soft, nontender, liver spleen not palpable, no masses palpable. PSYCH: AO 3, mood and affect normal INVESTIGATIONS, reviewed in the clinical context: December 10: Potassium 3.5 crit 0.49 TSH 0.745 White count 8 hemoglobin 12 platelets 25 potassium 4 creatinine 0.47 Initial ABG: PH 7.3 pCO2 86 pO2 51 on 36% FiO2 EKG tracing personally reviewed by me-normal sinus rhythm. Rate 76 Chest x-ray film personally reviewed by me-possible basilar infiltrates ProBNP 123. Pro-calcitonin 0.07 Assessment and plan: -Acute hypoxic metabolic encephalopathy from CO2 retention: Better Nasal cannula -Acute on chronic hypoxic and hypercapnic respiratory failure from underlying COPD in obesity: Improving Used BiPAP -Acute COPD exacerbation and a previous smoker: Slow to respond DuoNeb, nebulized steroids -GERD Protonix 40 mg a day -Obesity BMI 34 -Diabetes mellitus type 2, chronically ontrulicity Follow Accu-Cheks with sliding scale DuoNeb, BiPAP. Nebulized steroids. 2-D echo pending. Doubt CHF. Rule out cor pulmonale. Discussed with patient
[2021-12-10 20:08] LABS: Glucose,Whole Blood 125 mg/dL (70-110)
--- NOTE | 2021-12-11 03:09 | P.PN ---
Subjective Progress Note Date: 12/10/21 Patient was seen for a follow-up. Patient is laying comfortably in the bed. Denies any headache. No new concerns. Objective - Vital Signs Vital signs: Vital Signs Temp 98.2 F 12/10/21 15:28 Pulse 82 12/10/21 16:12 Resp 20 12/10/21 15:28 BP 122/66 12/10/21 15:28 Pulse Ox 92 L 12/10/21 15:28 FiO2 30 12/10/21 08:52 Intake & Output 12/09/21 12/10/21 12/10/21 18:59 06:59 18:59 Intake Total 180 Output Total 1650 350 400 Balance -1470 -350 -400 Intake: Oral 180 Output: Urine 1650 350 400 Other: Voiding Method Toilet Urinal Urinal # Voids 1 1 - Exam Patient's mental status, speech and language functions are normal. Pupils are equal, round and reacting to light. Visual purdy are full. Extraocular muscles are intact. Face is symmetric. Muscle strength is normal. Patient has mild fine tremors of outstretched hands. Also has moderate fine tremors for xevmbm-wy-bevw testing bilaterally. No tremors at rest. - Labs CBC & Chem 7: 12/09/21 06:49 12/10/21 06:32 Labs: Abnormal Lab Results - Last 24 Hours (Table) 12/09/21 12/10/21 12/10/21 Range/Units 20:04 06:32 11:59 Chloride 92 L (98-107) mmol/L Carbon Dioxide 39 H (22-30) mmol/L Creatinine 0.49 L (0.66-1.25) mg/dL POC Glucose (mg/dL) 149 H 118 H (70-110) mg/dL 12/10/21 Range/Units 17:00 Chloride (98-107) mmol/L Carbon Dioxide (22-30) mmol/L Creatinine (0.66-1.25) mg/dL POC Glucose (mg/dL) 122 H (70-110) mg/dL Assessment and Plan Assessment: * Myoclonic jerks, now seems to have resolved. He has mild postural fine metabolic tremor, likely related to underlying mild metabolic encephalopathy. No evidence of myoclonic jerks noticed today either. * COPD with exacerbation * Acute on chronic hypoxic and hypercapnic respiratory failure * CO2 retainer * Chronic diastolic congestive heart failure * Morbid obesity * Former smoker * Obstructive sleep apnea * Cerebral aneurysm 2.5 cm near the anterior communicating artery Plan: * Patient's tremors are very mild, metabolic tremors. No myoclonic jerks noted on today's examination as well. * I will revisit patient tomorrow one more time, to see if the tremors have reappeared * Treatment of medical/metabolic/cardiopulmonary conditions as per IM and pulmonary. * TSH 0.745 and free T4 1.58, both normal. * Patient may have underlying benign essential tremors. Mysoline 50 mg once or twice a day could be considered. Consider follow-up with neurologist as an outpatient if the tremors persist. * Please reconsult neurology if any concerns. We will sign off.
[2021-12-11] MEDS: INSULIN ASPART (NovoLOG) 100 UNIT/ML VIAL SQ SCH ×2 (06:22→11:46)
[2021-12-11 06:23] LABS: Glucose,Whole Blood 114 mg/dL (70-110)
[2021-12-11] MEDS: PANTOPRAZOLE 40 MG TABLET PO SCH (06:29)
[2021-12-11] MEDS: IPRATROPIUM-ALBUTEROL 3 ML NEB INHALATION SCH ×3 (08:14→14:59)
[2021-12-11] MEDS: BUDESONIDE 1 MG/2 ML NEBU INHALATION SCH (08:17)
[2021-12-11] MEDS: DOXYCYCLINE 100 MG CAP PO SCH (08:38)
[2021-12-11] MEDS: HYDROcodone/APAP 10-325MG 1 EACH TAB PO SCH (08:38)
[2021-12-11] MEDS: TERBINAFINE 250 MG TAB PO SCH (08:38)
[2021-12-11] MEDS: ENOXAPARIN 40 MG/0.4 ML SYRINGE SQ SCH (08:38)
[2021-12-11 08:51] VITALS: RESP 20; TEMP 98
--- NOTE | 2021-12-11 09:31 | CA ---
Transthoracic Echo Report Name: Babatunde Russell Age: 61 Gender: M : 1960 Exam Date: 12/11/2021 08:46 Exam Location: [place] [facility] Ht (in): 69 Wt (lb): 230 Ordering Physician: Rafa Pérez MD Attending/Referring Phys: Abstract Clerk Laina Arriaga RDCS Procedure CPT: Indications: Cor pulmonale Cardiac Hx: No cardiac hx Technical Quality: Very technically difficult study Contrast 1: Lumason Total Dose (mL): 1 Contrast 2: Total Dose (mL): MEASUREMENTS (Male / Female) Normal Values 2D ECHO LV Diastolic Diameter PLAX 4.2 cm 4.2 - 5.9 / 3.9 - 5.3 cm LV Systolic Diameter PLAX 2.8 cm IVS Diastolic Thickness 1.6 cm 0.6 - 1.0 / 0.6 - 0.9 cm LVPW Diastolic Thickness 1.8 cm 0.6 - 1.0 / 0.6 - 0.9 cm LV Relative Wall Thickness 0.8 RV Internal Dim ED PLAX 3.1 cm M-MODE Aortic Root Diameter MM 3.8 cm LA Systolic Diameter MM 2.6 cm LA Ao Ratio MM 0.7 MV E Point Septal Separation 1.6 cm AV Cusp Separation MM 2.3 cm DOPPLER AV Peak Velocity 162.9 cm/s AV Peak Gradient 10.6 mmHg MV Area PHT 3.3 cm??? MR Peak Velocity 169.8 cm/s MR Peak Gradient 11.5 mmHg Mitral E Point Velocity 93.8 cm/s Mitral A Point Velocity 97.2 cm/s Mitral E to A Ratio 1.0 MV Deceleration Time 229.9 ms TR Peak Velocity 152.3 cm/s TR Peak Gradient 9.3 mmHg Right Ventricular Systolic Press 14.0 mmHg FINDINGS Left Ventricle Moderately increased septal wall thickness. Left ventricular ejection fraction is estimated at 55-60 %.left ventricular cavity size normal. Right Ventricle Normal right ventricular size. Right ventricular systolic pressure within normal limits. Right Atrium Right atrium not well visualized. Left Atrium Left atrium not well visualized. Mitral Valve Mitral valve not well visualized. Trace mitral regurgitation. Aortic Valve Aortic valve not well visualized. Tricuspid Valve Tricuspid valve not well visualized. Trace tricuspid regurgitation. Pulmonic Valve Pulmonic valve not well visualized. Pericardium Echo free space anterior to the right ventricle likely represents a fat pad. Aorta Normal size aortic root and proximal ascending aorta. CONCLUSIONS Suboptimal acoustic windows Technically difficult study Contrast echo used Preserved LV size and systolic function Previewed by: Dr. Ashutosh Neff MD (Electronically Signed) Final Date: 11 December 2021 09:30
[2021-12-11 11:23] VITALS: BP 123/83
[2021-12-11 11:29] VITALS: PULSE 82
[2021-12-11 11:45] LABS: Glucose,Whole Blood 105 mg/dL (70-110)
--- NOTE | 2021-12-11 12:42 | P.PN ---
Subjective Progress Note Date: 12/11/21 Principal diagnosis: Shortness of breath, and cough This is a 61-year-old white male with history of multiple medical problems, normally sees Dr. Goff in the office for his obstructive sleep apnea syndrome and COPD. Patient is normally maintained on oxygen he is also on BiP AP. However he is not very compliant with his BiPAP. His other medical problems include chronic hypoxic respiratory failure, chronic diastolic congestive heart failure, chronic back pain, chronic cor pulmonale, his last admission to the hospital was back in May of 2021. And he was seen by Dr. Goff at the time on consultation. This time the patient had a similar presentation, patient came in with shortness of breath, confusion at home, EMS brought him in because of his 's concern. When EMS arrived, his O2 saturation was in the 70s. Patient was apparently recently discharged from [facility] and he was advised to use the BiPAP machine but is not compliant with it. Apparently on his last admission to [facility], patient had complete workup for brain aneurysm and he is scheduled to have coiling done on December 18. On this presentation, patient had hypoxic and hypercapnic respiratory failure, his pO2 was 51 pCO2 86 pH of 7.31, follow-up ABG on BiPAP showed a pO2 of 78 pCO2 of 80 pH of 7.37. His other labs were unremarkable. Chest x-ray showed cardiomegaly and possibly some mild pulmonary vascular congestion. BNP level was normal. On 12/10/2021 patient seen in follow-up on selective care unit. Patient is much more awake, less confused, he is on BiPAP support with pressures of 16/5 and FiO2 of 30%, he is answering questions appropriately. Vital signs have been stable, his O2 saturations on BiPAP settings are at 98%, he is been tolerating nasal cannula trials, with 4 L of oxygen per nasal cannula satting 91%, breathing comfortably, his been afebrile. Today's labs have been reviewed, his sodium is 137, potassium is 3.5, chloride is 92, CO2 39, BUN is 12, and creatinine 0.49. He remains on doxycycline, and breathing treatments. No IV steroids as the patient cannot tolerate IV steroids and becomes quite delirious. Patient continues on DuoNeb On 12/11/2021 patient seen in follow-up. Patient is wide awake, oriented 3, breathing very comfortably, currently on 4 L of oxygen satting 91-93% his been wearing BiPAP support at bedtime and as needed through the day at pressures of 16/60 and FiO2 of 30%. Has had no fever or chills. Vital signs have been stable. No rhonchi or wheezing, lung sounds are diminished, with a few scattered crackles at the bases. He continues on doxycycline, DuoNeb. Objective - Vital Signs Vital signs: Vital Signs Temp 98.0 F 12/11/21 08:36 Pulse 82 12/11/21 11:39 Resp 20 12/11/21 11:00 BP 123/83 12/11/21 11:00 Pulse Ox 91 L 12/11/21 11:00 FiO2 30 12/11/21 02:10 Intake & Output 12/10/21 12/11/21 12/11/21 18:59 06:59 18:59 Intake Total 20 Output Total 400 1250 Balance -400 -1230 Intake: IV 20 Invasive Line 1 10 Invasive Line 2 10 Output: Urine 400 1250 Other: Voiding Method Urinal Urinal Urinal # Voids 1 # Bowel Movements 1 - Exam GENERAL EXAM: Alert, pleasant, 61-year-old morbidly obese white male on BiPAP support with pressures of 16/5 and FiO2 of 30%, comfortable in no apparent distress. HEAD: Normocephalic/atraumatic. EYES: Normal reaction of pupils, equal size. Conjunctiva pink, sclera white. NOSE: Clear with pink turbinates. THROAT: No erythema or exudates. NECK: No masses, no JVD, no thyroid enlargement, no adenopathy. CHEST: No chest wall deformity. Symmetrical expansion. LUNGS: Equal air entry with diminished breath sounds at the bases CVS: Regular rate and rhythm, normal S1 and S2, no gallops, no murmurs, no rubs ABDOMEN: Soft, nontender. No hepatosplenomegaly, normal bowel sounds, no guarding or rigidity. EXTREMITIES: No clubbing, 1+ lower extremity edema, no cyanosis, 2+ pulses and upper and lower extremities. MUSCULOSKELETAL: Muscle strength and tone normal. SPINE: No scoliosis or deformity SKIN: No rashes CENTRAL NERVOUS SYSTEM: Alert and oriented -3. No focal deficits, tone is normal in all 4 extremities. PSYCHIATRIC: Alert and oriented -3. Appropriate affect. Intact judgment and insight. - Labs CBC & Chem 7: 12/09/21 06:49 12/10/21 06:32 Labs: Abnormal Lab Results - Last 24 Hours (Table) 12/10/21 12/10/21 12/11/21 Range/Units 17:00 20:07 06:21 POC Glucose (mg/dL) 122 H 125 H 114 H (70-110) mg/dL Assessment and Plan Plan: Assessment: #1. Acute on chronic hypoxic and hypercapnic respiratory failure #2. Chronic diastolic CHF #3. Severe COPD #4. Obstructive sleep apnea syndrome #5. Morbid obesity #6. Chronic cor pulmonale #7. Former smoker Plan: No acute events overnight Patient is awake alert, in no Distress He is on home oxygen at 4 L, and he does have a CPAP machine at home Vitals have been stable From pulmonary perspective he is stable for discharge home today He can resume his Symbicort, DuoNeb, finish doxycycline course Follow-up with Dr. Freire in the office in 7-10 days I have personally seen and examined the patient, performed the documentation and the assessment and plan as written. Number of minutes spent on the visit: [10] Time with Patient: Less than 30
--- NOTE | 2021-12-11 18:28 | P.DS ---
Providers Date of admission: 12/08/21 19:24 Expected date of discharge: 12/11/21 Attending physician: Irineo Mukherjee Consults: 12/08/21 19:24 Consult Physician Urgent Consulting Provider: Ezekiel Barnett Consult Reason/Comments: acute bipap dependant resp failure, aecopd Do you want consulting provider notified?: Yes 12/09/21 10:41 Consult Physician Routine Consulting Provider: Cesar Horowitz Consult Reason/Comments: myoclonic jerks Do you want consulting provider notified?: Yes [facility] care physician[facility] Course: Chief Complaint: Increasing confusion I'm rounding for Dr. Irineo Mukherjee This is a 61-year-old patient who follows with Dr. Irinoe Mukherjee. Chronic stable medical conditions include diabetes, GERD, home oxygen 4-5 L. Ex-smoker. Patient is found to be confused at home. called EMS. Pulse ox was found to be in the 70s. He normally wears 4.5 L of oxygen at home. Was recently discharged from [facility]. Supposed to have a BiPAP some follows the [employer]. Has not got a machine. Does have a CPAP. Does not use the same. No fever or cough chest pain reported. He has a known cerebral a neurysm and is due for intervention down the road with coiling. On December 18. This morning patient is on a BiPAP. Somewhat tired and unable to give much of a history. Though arousable. Admitted with metabolic/hypoxic encephalopathy, COPD exacerbation. Patient BiPAP. Bronchodilators. December 10: Laying in bed. More awake today. Conversing. On nasal cannula. Did tolerate a diet. Slight cough. December 11: Doing much better. Sitting of age the bed. Eating well. He'll follow-up with pulmonary's outpatient. Cleared by pulmonary. Discussed with patient. 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 Goff Discussion and discharge planning more than 35 minutes Past medical history to include: Home oxygen 4.5 L, COPD, cerebral aneurysm pending coiling, obesity Social history: Lives with his . Home oxygen 4-5 L. Smoked half a pack a day since 1986 stopped 9 months ago. No alcohol. Family history: COPD Physical examination: VITAL SIGNS: 98, 88, 20, 123/83, 91% on 4 L GENERAL: Sitting on edge bed, awake, looking much better EYES: Pupils equal. Conjunctiva normal. HEENT: External appearance of nose and ears normal, oral cavity grossly normal. NECK: JVD unable to assess; masses not palpable. HEART: First and second heart sounds are normal; no edema. LUNGS: Respiratory rate increased, diminished breath sounds; . ABDOMEN: Soft, nontender, liver spleen not palpable, no masses palpable. PSYCH: AO 3, mood and affect normal INVESTIGATIONS, reviewed in the clinical context: December 10: Potassium 3.5 crit 0.49 TSH 0.745 White count 8 hemoglobin 12 platelets 25 potassium 4 creatinine 0.47 Initial ABG: PH 7.3 pCO2 86 pO2 51 on 36% FiO2 EKG tracing personally reviewed by me-normal sinus rhythm. Rate 76 Chest x-ray film personally reviewed by me-possible basilar infiltrates ProBNP 123. Pro-calcitonin 0.07 Assessment and plan: -Acute hypoxic metabolic encephalopathy from CO2 retention: Better Nasal cannula -Acute on chronic hypoxic and hypercapnic respiratory failure from underlying COPD in obesity: Improving Received BiPAP. Discharged on 4 L of oxygen. -Acute COPD exacerbation and a previous smoker: Better DuoNeb, nebulized steroids -GERD Protonix 40 mg a day -Obesity BMI 34 -Diabetes mellitus type 2, chronically on trulicity Follow Accu-Cheks with sliding scale Disposition: Home Plan - Discharge Summary Discharge Rx Participant: Yes New Discharge Prescriptions: New Doxycycline [Vibramycin] 100 mg PO BID #10 cap Continue Hydrocodone/Acetaminophen [[place] 10-325] 1 tab PO TID Ipratropium-Albuterol Nebulize [Duoneb 0.5 mg-3 mg/3 ml Soln] 3 ml INHALATION RT-Q2H PRN 30 Days #120 ml PRN Reason: Shortness Of Breath Or Wheezing Clopidogrel [Plavix] See Taper PO DIRECTED Budesonide-Formot 160-4.5 Mcg [Symbicort 160-4.5 Mcg Inhaler] 2 puff INHALATION RT-BID Furosemide [Lasix] 40 mg PO DAILY 90 Days #90 tab Potassium Chloride [Klor-Con 20] 20 meq PO DAILY Terbinafine [LamISIL] 250 mg PO DAILY Omeprazole 40 mg PO DAILY Dulaglutide [Trulicity] 1.5 mg SQ SA Discharge Medication List Hydrocodone/Acetaminophen [[place] 10-325] 1 tab PO TID 10/14/17 [History] Furosemide [Lasix] 40 mg PO DAILY 90 Days #90 tab 08/24/20 [Rx] Potassium Chloride [Klor-Con 20] 20 meq PO DAILY 05/29/21 [History] Terbinafine [LamISIL] 250 mg PO DAILY 05/29/21 [History] Ipratropium-Albuterol Nebulize [Duoneb 0.5 mg-3 mg/3 ml Soln] 3 ml INHALATION RT-Q2H PRN 30 Days #120 ml 05/30/21 [Rx] Dulaglutide [Trulicity] 1.5 mg SQ SA 10/12/21 [History] Omeprazole 40 mg PO DAILY 10/12/21 [History] Budesonide-Formot 160-4.5 Mcg [Symbicort 160-4.5 Mcg Inhaler] 2 puff INHALATION RT-BID 12/08/21 [History] Clopidogrel [Plavix] See Taper PO DIRECTED 12/08/21 [History] Doxycycline [Vibramycin] 100 mg PO BID #10 cap 12/11/21 [Rx] Follow up Appointment(s)/Referral(s): Irineo Mukherjee MD [Primary Care Provider] - 12/14/21 11:00 am Osmin Goff MD [STAFF PHYSICIAN] - 12/20/21 3:30 pm Patient Instructions/Handouts: COPD (Chronic Obstructive Pulmonary Disease) (DC), CPAP (GEN) Discharge Disposition: HOME SELF-CARE
== END 2021-12-11 14:26 | disposition home or self-care (01) | DRG 190 ==
LOC: EC 15:56 → 3SCARD 19:24
PROVIDERS: ADMIT Family Medicine; ATTEND Family Medicine
PROC: 5A09457 Assistance with Respiratory Ventilation, 24-96 Consecutive Hours, Continuous Positive Airway Pressure (ICD-10-PCS; principal; 2021-12-08)
DX: J44.1 Chronic obstructive pulmonary disease with (acute) exacerbation (principal); G93.41 Metabolic encephalopathy; J96.21 Acute and chronic respiratory failure with hypoxia; J96.22 Acute and chronic respiratory failure with hypercapnia; E87.2 Acidosis; G93.1 Anoxic brain damage, not elsewhere classified; I50.32 Chronic diastolic (congestive) heart failure; G25.2 Other specified forms of tremor; E11.649 Type 2 diabetes mellitus with hypoglycemia without coma; G25.0 Essential tremor; E66.01 Morbid (severe) obesity due to excess calories; G25.3 Myoclonus; G47.33 Obstructive sleep apnea (adult) (pediatric); I08.1 Rheumatic disorders of both mitral and tricuspid valves; I27.81 Cor pulmonale (chronic); K21.9 Gastro-esophageal reflux disease without esophagitis; Z68.34 Body mass index [BMI] 34.0-34.9, adult; Z79.51 Long term (current) use of inhaled steroids; Z79.899 Other long term (current) drug therapy; Z82.49 Family history of ischemic heart disease and other diseases of the circulatory system; Z87.891 Personal history of nicotine dependence; Z91.19 Patient's noncompliance with other medical treatment and regimen; Z82.5 Family history of asthma and other chronic lower respiratory diseases
CPT/HCPCS: 36415; 36600; 71046; 80048; 80053; 82803; 82805; 83605; 83880; 84145; 84439; 84443; 84484; 85025; 85610; 85730; 93005; 93306; 94640; 94660; 94760; 96372; 96374; 99285

== ENCOUNTER → 2022-09-20 | Outpatient (CLI) | payer MEDICARE ==
[2022-09-20 16:32] LABS: ALT 14 U/L (10-49); AST 17 U/L (14-35); African American GFR (CKD) 138.8 (60.0-200.0); Albumin 3.9 g/dL (3.8-4.9); Albumin/Globulin Ratio 1.45 (1.60-3.17); Alkaline Phosphatase 45 U/L (41-126); BUN/Creat Ratio 19.69 Ratio (12.00-20.00); Blood Urea Nitrogen 9.5 mg/dL (9.0-27.0); Carbon Dioxide 39.6 mmol/L (20.0-27.5); Chloride 98 mmol/L (96-109); Chol/HDL Ratio 4.64 Ratio; Globulin 2.7 g/dL (1.6-3.3); Glucose 100 mg/dL (70-110); Iron 78 ug/dL (65-175); LDL Cholesterol,Calculated 144.2 mg/dL (0.0-131.0); Non-African American GFR(CKD) 119.8 (60.0-200.0); Potassium 4.8 mmol/L (3.5-5.5); Sodium 144 mmol/L (135-145); Total Bilirubin <0.15 mg/dL (0.30-1.20); Total Protein 6.6 g/dL (6.2-8.2)
[2022-09-20 17:15] LABS: Basophils # (A) 0.03 X 10*3/uL (0.00-0.10); Basophils % (A) 0.4 %; Eosinophils # (A) 0.44 X 10*3/uL (0.04-0.35); Eosinophils % (A) 6.4 %; HCT 42.1 % (39.6-50.0); HGB 11.8 g/dL (13.0-17.0); Immature Grans, Automated 0.3 %; Lymphocytes # (A) 1.37 X 10*3/uL (0.90-5.00); Lymphocytes % (A) 19.9 %; MCH 26.7 pg (27.0-32.0); MCV 95.2 fL (80.0-97.0); Mean Platelet Volume 11.3 fL (9.5-12.2); Monocytes # (A) 0.72 X 10*3/uL (0.20-1.00); Monocytes % (A) 10.4 %; NRBC Per 100 WBC 0 /100 WBCS (0.0-0.0); Neutrophils # (A) 4.32 X 10*3/uL (1.80-7.70); Neutrophils % (A) 62.6 %; Platelet Count 260 X 10*3/uL (140-440); RBC 4.42 X 10*6/uL (4.40-5.60); RDW 13.2 % (11.5-14.5); Stomatocytes 2+
== END | disposition home or self-care (01) ==
LOC: LABWHC1 10:56
PROVIDERS: ATTEND Family Medicine
DX: I10 Essential (primary) hypertension (principal); E11.9 Type 2 diabetes mellitus without complications; Z79.899 Other long term (current) drug therapy
CPT/HCPCS: 36415; 80053; 80061; 83036; 83540; 83880; 84443; 85025

== ENCOUNTER 2023-10-07 17:02 | Observation (INO) | payer MEDICARE ==
--- NOTE | 2023-10-07 17:16 | ED ---
General Adult HPI - General Stated complaint: TRAVIS Time Seen by Provider: 10/07/23 17:05 Source: patient, EMS, RN notes reviewed Mode of arrival: EMS Limitations: no limitations - History of Present Illness Initial comments: Patient is a 63-year-old male presenting to the emergency department with difficulty breathing. Patient has been diagnosed with COPD previously with similar symptoms. Patient has had minimal cough. Patient has had wheezing. Patient did receive nebulizer treatment and route with resolution of symptoms and now feels somewhat better . No calf pain or swelling. No chest pain. No fever. - Related Data Home Medications Medication Instructions Recorded Confirmed Hydrocodone/Acetaminophen [[place] 1 tab PO QID 10/14/17 10/07/23 10-325] Potassium Chloride [Klor-Con 20] 20 meq PO DAILY 05/29/21 10/07/23 Terbinafine [LamISIL] 250 mg PO DAILY 05/29/21 10/07/23 Aspirin EC [Ecotrin Low Dose] 81 mg PO DAILY 10/07/23 10/07/23 Furosemide [Lasix] 10 mg PO HS 10/07/23 10/07/23 Furosemide [Lasix] 20 mg PO DAILY 10/07/23 10/07/23 Ipratropium-Albuterol Nebulize 3 ml INHALATION RT-QID PRN 10/07/23 10/07/23 [Duoneb 0.5 mg-3 mg/3 ml Soln] Loratadine [Claritin] 10 mg PO DAILY 10/07/23 10/07/23 Pantoprazole Sodium [Protonix] 40 mg PO DAILY 10/07/23 10/07/23 Ticagrelor [Brilinta] 60 mg PO BID 10/07/23 10/07/23 Tirzepatide [Mounjaro] 7.5 mg SQ SA 10/07/23 10/07/23 lisinopriL [Zestril] 20 mg PO DAILY 10/07/23 10/07/23 metroNIDAZOLE 0.75% CREAM 1 applic TOPICAL DAILY 10/07/23 10/07/23 [Metrocream 0.75%] Allergies Allergy/AdvReac Type Severity Reaction Status Date / Time prednisone AdvReac Confusion Verified 10/07/23 18:12 Review of Systems ROS Statement: Those systems with pertinent positive or pertinent negative responses have been documented in the HPI. ROS Other: All systems not noted in ROS Statement are negative. Constitutional: Denies: fever Eyes: Denies: eye pain ENT: Denies: ear pain Respiratory: Reports: as per HPI, dyspnea Cardiovascular: Denies: chest pain Endocrine: Denies: fatigue Gastrointestinal: Denies: abdominal pain Past Medical History Past Medical History: COPD, Pneumonia Additional Past Medical History / Comment(s): Pt states prior to today, he was never diagnosed with copd, pneumonia 20 yrs ago, chronic back pain, R arm numbness/tingling and also involves R shoulder. History of Any Multi-Drug Resistant Organisms: None Reported Additional Past Surgical History / Comment(s): Colonoscopies with benign polypectomy, back injections. Past Anesthesia/Blood Transfusion Reactions: No Reported Reaction Past Psychological History: No Psychological Hx Reported Smoking Status: Former smoker Past Alcohol Use History: None Reported Past Drug Use History: None Reported - Past Family History Father Family Medical History: COPD Additional Family Medical History / Comment(s): Father of copd at the age of 69yrs. He was a smoker. Mother Family Medical History: COPD, Hypertension Additional Family Medical History / Comment(s): Mother at the age of 78yrs. General Exam Limitations: no limitations General appearance: alert, in no apparent distress Head exam: Present: normocephalic Eye exam: Present: normal appearance Respiratory exam: Present: decreased breath sounds. Absent: respiratory distress Cardiovascular Exam: Present: regular rate, normal rhythm GI/Abdominal exam: Present: soft. Absent: tenderness Extremities exam: Present: normal inspection. Absent: pedal edema, calf tenderness Neurological exam: Present: alert Psychiatric exam: Present: normal affect, normal mood Skin exam: Present: normal color Course Vital Signs 10/07/23 10/07/23 17:20 19:30 Temperature 98.1 F Pulse Rate 75 72 Respiratory 18 19 Rate Blood Pressure 138/70 130/72 O2 Sat by Pulse 100 91 L Oximetry EKG Findings - EKG Results: EKG: interpreted by ERMD, sinus rhythm, normal axis, normal QRS, normal ST/T Medical Decision Making - Medical Decision Making Was pt. sent in by a medical professional or institution (, PA, COOPER APPRENTICE, urgent care, hospital, or care home...) When possible be specific @ -No Did you speak to anyone other than the patient for history (EMS, parent, family, police, friend...)? What history was obtained from this source @ -EMS provides history of nebulizer given and transferred Did you review nursing and triage notes (agree or disagree)? Why? @ -I reviewed and agree with nursing and triage notes Were old charts reviewed (outside hosp., previous admission, EMS record, old EKG, old radiological studies, urgent care reports/EKG's, care home records)? Report findings @ -Previous chest x-ray reviewed Differential Diagnosis (chest pain, altered mental status, abdominal pain women, abdominal pain men, vaginal bleeding, weakness, fever, dyspnea, syncope, headache, dizziness, GI bleed, back pain, seizure, CVA, palpatations, mental health, musculoskeletal)? @ -Differential Dyspnea: Coronary syndrome, arrhythmia, tamponade, asthma, COPD, pulmonary embolism, pneumonia, pneumothorax, pulmonary effusion, anaphylaxis, diabetic ketoacidosis, flailed chest, pulmonary contusion, diaphragmatic rupture, anemia, neuromuscular, this is not meant to be an all-inclusive list. EKG interpreted by me (3pts min.). @ -As above X-rays interpreted by me (1pt min.). @ -Chest x-ray shows cardiomegaly and some increased interstitial markings concerning for CHF CT interpreted by me (1pt min.). @ -None done U/S interpreted by me (1pt. min.). @ -None done What testing was considered but not performed or refused? (CT, X-rays, U/S, labs)? Why? @ -None What meds were considered but not given or refused? Why? @ -None Did you discuss the management of the patient with other professionals (pro fessionals i.e. , PA, COOPER APPRENTICE, lab, RT, psych nurse, social media marketing specialist, tester armature or fields, teacher, commercial escrow officer, manager of case management)? Give summary @ -Case was discussed with Dr. Mukherjee who will admit his patient Was smoking cessation discussed for >3mins.? @ -No Was critical care preformed (if so, how long)? @ -No Were there social determinants of health that impacted care today? How? (Homelessness, low income, unemployed, alcoholism, drug addiction, transportation, low edu. Level, literacy, decrease access to med. care, chcf, rehab)? @ -No Was there de-escalation of care discussed even if they declined (Discuss DNR or withdrawal of care, Hospice)? DNR status @ -No What co-morbidities impacted this encounter? (DM, HTN, Smoking, COPD, CAD, Cancer, CVA, ARF, Chemo, Hep., AIDS, mental health diagnosis, sleep apnea, morbid obesity)? @ -COPD is Was patient admitted / discharged? Hospital course, mention meds given and route, prescriptions, significant lab abnormalities, going to OR and other pertinent info. @ -Patient reevaluated. Patient and family updated on results and plan. Patient will be admitted and provided Lasix and echo ordered with cardiac consult. Patient also treated for COPD. Undiagnosed new problem with uncertain prognosis? @ -No Drug Therapy requiring intensive monitoring for toxicity (Heparin, Nitro, Insulin, Cardizem)? @ -No Were any procedures done? @ -No Diagnosis/symptom? @ -Dyspnea Acute, or Chronic, or Acute on Chronic? @ -Acute Uncomplicated (without systemic symptoms) or Complicated (systemic symptoms)? @ -Default Side effects of treatment? @ -No Exacerbation, Progression, or Severe Exacerbation? @ -No Poses a threat to life or bodily function? How? (Chest pain, [place], [place], pneumonia, PE, COPD, DKA, ARF, appy, cholecystitis, CVA, Diverticulitis, Homicidal, Suicidal, threat to staff... and all critical care pts) @ -No - Lab Data Result diagrams: 10/07/23 19:16 10/07/23 19:16 Lab Results 10/07/23 10/07/23 10/07/23 Range/Units 19:16 19:16 19:16 WBC 7.0 (3.8-10.6) k/uL RBC 4.46 (4.30-5.90) m/uL Hgb 12.5 L (13.0-17.5) gm/dL Hct 42.2 (39.0-53.0) % MCV 94.7 (80.0-100.0) fL MCH 28.1 (25.0-35.0) pg MCHC 29.7 L (31.0-37.0) g/dL RDW 13.0 (11.5-15.5) % Plt Count 267 (150-450) k/uL MPV 8.1 Neutrophils % 67 % Lymphocytes % 18 % Monocytes % 9 % Eosinophils % 4 % Basophils % 1 % Neutrophils # 4.7 (1.3-7.7) k/uL Lymphocytes # 1.3 (1.0-4.8) k/uL Monocytes # 0.6 (0-1.0) k/uL Eosinophils # 0.3 (0-0.7) k/uL Basophils # 0.0 (0-0.2) k/uL Hypochromasia Marked PT 10.0 (10.0-12.5) sec INR 0.9 (<1.2) APTT 23.6 (22.0-30.0) sec Sodium 137 (137-145) mmol/L Potassium 5.4 H (3.5-5.1) mmol/L Chloride 90 L (98-107) mmol/L Carbon Dioxide 45 H* (22-30) mmol/L Anion Gap 2 mmol/L BUN 13 (9-20) mg/dL Creatinine 0.52 L (0.66-1.25) mg/dL Est GFR (CKD-EPI)AfAm >90 (>60 ml/min/1.73 sqM) Est GFR (CKD-EPI)NonAf >90 (>60 ml/min/1.73 sqM) Glucose 95 (74-99) mg/dL Calcium 8.8 (8.4-10.2) mg/dL Magnesium 2.0 (1.6-2.3) mg/dL Total Bilirubin 0.5 (0.2-1.3) mg/dL AST 26 (17-59) U/L ALT 18 (4-49) U/L Alkaline Phosphatase 47 (38-126) U/L Troponin I (0.000-0.034) ng/mL NT-Pro-B Natriuret Pep 157 pg/mL Total Protein 7.0 (6.3-8.2) g/dL Albumin 3.9 (3.5-5.0) g/dL 10/07/23 Range/Units 19:16 WBC (3.8-10.6) k/uL RBC (4.30-5.90) m/uL Hgb (13.0-17.5) gm/dL Hct (39.0-53.0) % MCV (80.0-100.0) fL MCH (25.0-35.0) pg MCHC (31.0-37.0) g/dL RDW (11.5-15.5) % Plt Count (150-450) k/uL MPV Neutrophils % % Lymphocytes % % Monocytes % % Eosinophils % % Basophils % % Neutrophils # (1.3-7.7) k/uL Lymphocytes # (1.0-4.8) k/uL Monocytes # (0-1.0) k/uL Eosinophils # (0-0.7) k/uL Basophils # (0-0.2) k/uL Hypochromasia PT (10.0-12.5) sec INR (<1.2) APTT (22.0-30.0) sec Sodium (137-145) mmol/L Potassium (3.5-5.1) mmol/L Chloride (98-107) mmol/L Carbon Dioxide (22-30) mmol/L Anion Gap mmol/L BUN (9-20) mg/dL Creatinine (0.66-1.25) mg/dL Est GFR (CKD-EPI)AfAm (>60 ml/min/1.73 sqM) Est GFR (CKD-EPI)NonAf (>60 ml/min/1.73 sqM) Glucose (74-99) mg/dL Calcium (8.4-10.2) mg/dL Magnesium (1.6-2.3) mg/dL Total Bilirubin (0.2-1.3) mg/dL AST (17-59) U/L ALT (4-49) U/L Alkaline Phosphatase (38-126) U/L Troponin I 0.014 (0.000-0.034) ng/mL NT-Pro-B Natriuret Pep pg/mL Total Protein (6.3-8.2) g/dL Albumin (3.5-5.0) g/dL Disposition Clinical Impression: Congestive heart failure, Acute exacerbation of chronic obstructive pulmonary disease (COPD) Disposition: ADMITTED IP TO THIS HOSP Is patient prescribed a controlled substance at d/c from ED?: No Referrals: Irineo Mukherjee MD [Primary Care Provider] - 1-2 days Time of Disposition: 20:14
--- NOTE | 2023-10-07 18:08 | XR ---
EXAMINATION TYPE: XR chest 2V DATE OF EXAM: 10/07/2023 5:38 PM CLINICAL INDICATION:Male, 63 years old with history of dyspnea; H COMPARISON: Chest radiographs from 12/08/2021 TECHNIQUE: XR chest 2V Frontal and lateral views of the chest. FINDINGS: Lungs/Pleura: There is no evidence of pleural effusion, focal consolidation, or pneumothorax. Pulmonary vascularity: Pulmonary vascular congestion. Heart/mediastinum: Cardiomediastinal silhouette is enlarged and stable. Musculoskeletal: No acute osseous pathology. IMPRESSION: Cardiomegaly and mild pulmonary vascular congestion. Correlate with BNP for congestive heart failure.
[2023-10-07 19:34] LABS: ALT 18 U/L (4-49); AST 26 U/L (17-59); African American GFR (CKD) >90 (>60 ml/min/1.73 sqM); Albumin 3.9 g/dL (3.5-5.0); Alkaline Phosphatase 47 U/L (38-126); Blood Urea Nitrogen 13 mg/dL (9-20); Calcium 8.8 mg/dL (8.4-10.2); Chloride 90 mmol/L (98-107); Glucose 95 mg/dL (74-99); INR 0.9 (<1.2); Non-African American GFR(CKD) >90 (>60 ml/min/1.73 sqM); Partial Thromboplastin Time 23.6 sec (22.0-30.0); Potassium 5.4 mmol/L (3.5-5.1); Sodium 137 mmol/L (137-145); Total Bilirubin 0.5 mg/dL (0.2-1.3)
[2023-10-07 19:38] LABS: Basophils % (A) 1 %; Eosinophils # (A) 0.3 k/uL (0-0.7); Eosinophils % (A) 4 %; HCT 42.2 % (39.0-53.0); HGB 12.5 gm/dL (13.0-17.5); Hypochromasia Marked; Lymphocytes # (A) 1.3 k/uL (1.0-4.8); Lymphocytes % (A) 18 %; MCH 28.1 pg (25.0-35.0); MCHC 29.7 g/dL (31.0-37.0); MCV 94.7 fL (80.0-100.0); Mean Platelet Volume 8.1; Monocytes # (A) 0.6 k/uL (0-1.0); Monocytes % (A) 9 %; Neutrophils # (A) 4.7 k/uL (1.3-7.7); Neutrophils % (A) 67 %; Platelet Count 267 k/uL (150-450); RBC 4.46 m/uL (4.30-5.90)
[2023-10-07 19:40] LABS: Anion Gap 2 mmol/L
[2023-10-07 19:42] LABS: NT-Pro-B-Type Natriuretic Pept 157 pg/mL
[2023-10-07 20:02] LABS: Carbon Dioxide 45 mmol/L (22-30)
[2023-10-07] MEDS ORDERED: IPRATROPIUM-ALBUTEROL 3 ML NEB INHALATION PRN ×2 (20:15→22:06)
[2023-10-07] MEDS ORDERED: NALOXONE 0.4 MG/ML 1 ML VIAL IVP PRN (20:15)
[2023-10-07] MEDS: FUROSEMIDE 10 MG/ML 4 ML VIAL IV STA (20:42)
[2023-10-07] MEDS: NON FORMULARY DRUG (Ticagrelor [Brilinta] 60 MG Tablet) PO SCH (20:44)
[2023-10-07] MEDS: HYDROcodone/APAP 10-325MG 1 EACH TAB PO SCH (22:17)
[2023-10-07] MEDS: methylPREDNISolone SOD SUCCI 40 MG/ML 1 ML VIAL IV SCH (23:55)
[2023-10-08] MEDS: TAMSULOSIN 0.4 MG CAP.ER.24H PO SCH (00:12)
[2023-10-08 00:29] LABS: Appearance,Urine Clear (Clear); Bilirubin,Urine Negative (Negative); Blood,Urine Negative (Negative); Color,Urine Colorless; Glucose,Urine (UA) Negative (Negative); Ketones,Urine Negative (Negative); Leukocyte Esterase,Urine Negative (Negative); Nitrite,Urine Negative (Negative); PH, Urine 6.5 (5.0-8.0); Protein,Urine Negative (Negative); Specific Gravity,Urine 1.008 (1.001-1.035); Urobilinogen,Urine <2.0 mg/dL (<2.0)
--- NOTE | 2023-10-08 00:32 | HP ---
HISTORY AND PHYSICAL HISTORY OF PRESENT ILLNESS: A 63-year-old white male. He has had hypoxemia at home over the last 2-3 weeks, requiring more oxygen. He has a history of COPD, pulmonary embolisms, DVTs, and severe sleep apnea requiring BiPAP usually at home. The patient's breathing got worse for some reason. We are going to rule him out for sepsis. HOME MEDICINES: 1. Brilinta 60 b.i.d. 2. Mounjaro 7.5 weekly. 3. DuoNeb q.i.d. 4. Lasix 20 daily in the morning, 10 in the afternoon. 5. Potassium chloride 20 mEq daily. 6. [place] 10 q.i.d. 7. Zestril 20 daily. ALLERGIES: Prednisone. REVIEW OF SYSTEMS: 14-point review of systems otherwise negative. PAST MEDICAL HISTORY: Asthma, COPD, sleep apnea. He requires BiPAP at home. He has had colonoscopies, benign polypectomies, longstanding history of pulmonary problems with obstructive sleep apnea requiring BiPAP. FAMILY HISTORY: Father with COPD. Mother with COPD, hypertension. PHYSICAL EXAMINATION: VITAL SIGNS: Temp 98.1, pulse 72, respiratory rate 18 to 19, blood pressure 130-138/70- 72, O2 of 91% to 100%. HEENT: Normocephalic, atraumatic. GI: Soft. NEUROLOGIC: Cranial nerves intact. PSYCH: Fair mood and affect. LABORATORY DATA: EKG, ER . ASSESSMENT: 1. Acute hypoxemic respiratory failure. 2. Acute on chronic anemia. 3. Hyperkalemia. 4. Hypercapnic respiratory distress. 5. History of congestive heart failure. 6. Chronic obstructive pulmonary disease. 7. Asthma. 8. Obstructive sleep apnea, requiring BiPAP. PROGNOSIS: Guarded. Please see further orders. MMODL / IJN: [id number] /
--- NOTE | 2023-10-08 02:50 | P.CNPUL ---
History of Present Illness Consult date: 10/08/23 Requesting physician: Chuy Burt Reason for consult: COPD Chief complaint: Acute on chronic dyspnea History of present illness: Patient is a 63-year-old white male with past medical history significant for severe COPD, obstructive sleep apnea with home CPAP, chronic hypoxemic respiratory failure normally on 4 L/min nasal cannula, brain aneurysm with previous embolization, hypertension, among other things. His primary care provider is Dr. Irineo Mukherjee. Patient has followed up with Dr. Goff in the pulmonary office in the past, but has not recently followed up. He has severe COPD with an FEV1 35% of predicted. He reportedly quit smoking and drinking alcohol over 3 years ago. He utilizes a Breztri maintenance inhaler and albuterol rescue inhaler as needed. While at home yesterday, the patient was walking to the bathroom and became acutely short of breath. He states that he i s chronically short of breath, however, this was worse than normal. He could not catch his breath. He was not able to get to his rescue inhaler, and his called EMS. He is currently in the emergency department, room 16. He is on 5 L/min nasal cannula. He is alert and oriented. No signs of CO2 narcosis. Does not appear particularly short of breath at rest, but does keep standing and sitting at bedside. States his urinary catheter is bothering him. Denies any associated cough, sputum production, hemoptysis, fevers, chest pain. Denies any sick contacts. Denies any heart palpitations, lightheadedness or syncopal events, increased lower extremity swelling. There is a CPAP on standby at the bedside. Patient states that he normally wears a CPAP at at night, unsure of his pressure support. He has had issues with device compliance in the past. He was supposed to follow-up for split-night study with Dr. Goff, but never had follow-up. He does report an intolerance to prednisone and steroids, and wishes to avoid them if possible. He states he gets confused, agitated, and combative when taking systemic steroids. He did reportedly recently undergo a procedure in regards to his brain aneurysm at [facility]. Brain MRA done at our facility on 07/06/2022 showed postembolization changes to the prior left anterior CARLOS aneurysm. No new aneurysms definitively visualized. No neurological deficits reported. Chest x-ray done on admission showed stable cardiomegaly and possible pulmonary vascular congestion, however, film appears underpenetrated. No focal infiltrates or evidence of pneumonia. Afebrile. CBC unremarkable without leukocytosis. Viral screen negative for influenza, RSV, COVID. NT proBNP low. Troponin 0.014. D-dimer low. CMP on arrival: Sodium 13 7, potassium 5.4, chloride 90, serum bicarb 45, BUN 13, creatinine 0.52, glucose 95. LFTs not elevated. Of note, patient was unable to void on arrival to the emergency room. He was receiving Lasix, and takes Lasix outpatient. He ultimately had a indwelling urinary catheter placed. He does report some burning after the Quintanilla catheter was inserted. No other urinary complaints numbness hematuria, penile discharge, urinary frequency. He states has not had prior issues urinary retention or enlarged prostate. He has been started on Flomax. He remains afebrile. Most recent echocardiogram was from 2021 and estimated preserved left ventricular ejection fraction of 55 to 60%. Hemodynamics are currently stable. Review of Systems REVIEW OF SYSTEMS: CONSTITUTIONAL: Denies any recent significant weight loss or weight gain. EYES: Denies change in vision. EARS, NOSE, MOUTH, THROAT: Denies headaches, denies sore throat. CARDIOVASCULAR: Denies chest pain, palpitations or syncopal episodes. RESPIRATORY: See HPI GASTROINTESTINAL: Denies change in appetite, abdominal pain, nausea and vomiting, or diarrhea GENITOURINARY: Denies hematuria, denies infections. MUSKULOSKELETAL: Denies pain, denies swelling. INTEGUMENTARY: Reports some redness in his left groin. NEUROLOGICAL: Denies recent memory loss, no recent seizure activity. PSYCHIATRIC: Denies anxiety, denies depression. HEMATOLOGIC/LYMPHATIC: Denies anemia, denies enlarged lymph node Past Medical History Past Medical History: COPD, Pneumonia Additional Past Medical History / Comment(s): Pt states prior to today, he was never diagnosed with copd, pneumonia 20 yrs ago, chronic back pain, R arm numbness/tingling and also involves R shoulder. History of Any Multi-Drug Resistant Organisms: None Reported Additional Past Surgical History / Comment(s): Colonoscopies with benign polypectomy, back injections. Past Anesthesia/Blood Transfusion Reactions: No Reported Reaction Past Psychological History: No Psychological Hx Reported Smoking Status: Former smoker Past Alcohol Use History: None Reported Past Drug Use History: None Reported - Past Family History Father Family Medical History: COPD Additional Family Medical History / Comment(s): Father of copd at the age of 69yrs. He was a smoker. Mother Family Medical History: COPD, Hypertension Additional Family Medical History / Comment(s): Mother at the age of 78yrs. Medications and Allergies Home Medications Medication Instructions Recorded Confirmed Type Hydrocodone/Acetaminophen [[place] 1 tab PO QID 10/14/17 10/07/23 History 10-325] Potassium Chloride [Klor-Con 20] 20 meq PO DAILY 05/29/21 10/07/23 History Terbinafine [LamISIL] 250 mg PO DAILY 05/29/21 10/07/23 History Aspirin EC [Ecotrin Low Dose] 81 mg PO DAILY 10/07/23 10/07/23 History Furosemide [Lasix] 10 mg PO HS 10/07/23 10/07/23 History Furosemide [Lasix] 20 mg PO DAILY 10/07/23 10/07/23 History Ipratropium-Albuterol Nebulize 3 ml INHALATION RT-QID PRN 10/07/23 10/07/23 History [Duoneb 0.5 mg-3 mg/3 ml Soln] Loratadine [Claritin] 10 mg PO DAILY 10/07/23 10/07/23 History Pantoprazole Sodium [Protonix] 40 mg PO DAILY 10/07/23 10/07/23 History Ticagrelor [Brilinta] 60 mg PO BID 10/07/23 10/07/23 History Tirzepatide [Mounjaro] 7.5 mg SQ SA 10/07/23 10/07/23 History lisinopriL [Zestril] 20 mg PO DAILY 10/07/23 10/07/23 History metroNIDAZOLE 0.75% CREAM 1 applic TOPICAL DAILY 10/07/23 10/07/23 History [Metrocream 0.75%] Allergies Allergy/AdvReac Type Severity Reaction Status Date / Time prednisone AdvReac Confusion Verified 10/07/23 18:12 Physical Exam Vitals: Vital Signs Temp Pulse Resp BP Pulse Ox 10/07/23 20:45 68 18 114/45 92 L 10/07/23 19:30 98.1 F 72 19 130/72 91 L 10/07/23 17:20 75 18 138/70 100 Intake and Output 10/07/23 10/07/23 10/08/23 14:59 22:59 06:59 Output Total 1999 Balance -1999 Output: Urine 1999 Uretheral (Quintanilla) 1999 Other: Weight 145.15 kg GENERAL EXAM: Alert, 63-year-old obese male, sitting at the edge of the bed, in no apparent distress. HEAD: Normocephalic and atraumatic EYES: Normal reaction of pupils, equal size. NOSE: Clear with pink turbinates. THROAT: No erythema or exudates. NECK: No masses, no JVD. CHEST: No chest wall deformity. LUNGS: Equal air entry with no crackles, wheeze, rhonchi or dullness. On 5 L/min nasal cannula. No conversational dyspnea or accessory muscle use while at rest. CVS: S1 and S2 normal with no audible murmur, regular rhythm. No extra heart sounds ABDOMEN: Obese abdomen, no hepatosplenomegaly, active bowel sounds, no guarding or rigidity. SPINE: No scoliosis or deformity SKIN: Left groin erythema, moist CENTRAL NERVOUS SYSTEM: No focal deficits, tone is normal in all 4 extremities. EXTREMITIES: There is no peripheral edema, clubbing, or cyanosis. Peripheral pulses are intact. Results - Laboratory Findings CBC and BMP: 10/07/23 19:16 10/07/23 19:16 PT/INR, D-dimer PT 10.0 sec (10.0-12.5) 10/07/23 19:16 INR 0.9 (<1.2) 10/07/23 19:16 D-Dimer 0.45 mg/L FEU (<0.60) 10/07/23 22:20 Abnormal lab findings: Abnormal Labs 10/07/23 10/07/23 19:16 19:16 Hgb 12.5 L MCHC 29.7 L Potassium 5.4 H Chloride 90 L Carbon Dioxide 45 H* Creatinine 0.52 L - Diagnostic Findings Chest x-ray: image reviewed Assessment and Plan Assessment: Suspect acute COPD exacerbation, Chest x-ray done on admission showed stable cardiomegaly and possible pulmonary vascular congestion, however, film appears underpenetrated. NT proBNP was low. No focal infiltrates or evidence of pneumonia. No leukocytosis. No fever. Negative for influenza, RSV, COVID. Acute on chronic hypoxemic respiratory failure, currently on 5 L/min nasal cannula, secondary to above Severe chronic obstructive pulmonary disease, with an FEV1 35% of predicted. Normally maintained on Breztri maintenance inhaler and as needed albuterol rescue inhaler. Chronic hypoxemic respiratory failure, normally maintained on 4 L/min nasal cannula, secondary to above Obstructive sleep apnea, with home CPAP or BIPAP device, issues with compliance in the past, has not routinely followed up in the pulmonary office. Urinary retention, currently with indwelling urinary catheter and started on Flomax Morbid obesity, with a BMI of 47.3 kg/m, currently on Mounjaro History of hypertension History of brain aneurysm with previous embolization Former tobacco dependence Plan: Patient's medications, labs, chest x-ray reviewed Continue supplemental oxygen maintain oxygen saturation of 90% or greater No signs of CO2 narcosis Viral screen negative for influenza, RSV, COVID. No obvious focal infiltrates on chest x-ray. Procalcitonin level is pending. Patient reports an intolerance to systemic steroids, states he becomes confused, agitated, and combative. Will try to avoid systemic steroids if possible. Start patient on combination of Symbicort inhaler, DuoNebs [id number] and as needed There is an echocardiogram pending. He was restarted on his Lasix, which has been increased to 40 mg twice daily. obtain UA We will continue to follow. I have personally seen and examined the patient, performed the documentation and the assessment and plan as written. Number of minutes spent on the visit:20 Time with Patient: Greater than 30
[2023-10-08] MEDS: IPRATROPIUM-ALBUTEROL 3 ML NEB INHALATION SCH (07:41)
[2023-10-08] MEDS: SYMBICORT 160-4.5 MCG INHALER INHALATION SCH (07:42)
[2023-10-08] MEDS: PANTOPRAZOLE 40 MG TABLET PO SCH (09:35)
[2023-10-08] MEDS: ASPIRIN 81 MG PO SCH (09:35)
[2023-10-08] MEDS: METOPROLOL SUCCINATE (ER) 25 MG TAB.ER.24H PO SCH (09:35)
[2023-10-08] MEDS: LORATADINE 10 MG TAB PO SCH (09:35)
[2023-10-08] MEDS: lisinopriL 20 MG TAB PO SCH (09:35)
[2023-10-08] MEDS: SPIRONOLACTONE 25 MG TAB PO SCH (09:36)
[2023-10-08] MEDS: BUMETANIDE 1 MG TAB PO SCH (09:38)
[2023-10-08] MEDS: POTASSIUM CHLORIDE ER 20 MEQ TAB.ER PO SCH (09:46)
[2023-10-08] MEDS: FUROSEMIDE 10 MG/ML 4 ML VIAL IV SCH (09:46)
--- NOTE | 2023-10-08 11:51 | P.CRDCN ---
History of Present Illness Consult date: 10/08/23 Reason for Consult (text): Dyspnea History of present illness: History of present illness: This is a 63-year-old male patient of Dr. Thompson with past medical history of hypertension, severe COPD, chronic hypoxic respiratory failure on home O2 at 4 L nasal cannula, obstructive sleep apnea on CPAP, morbid obesity, history of brain aneurysm status post coiling done at [facility], chronic dyspnea on exertion, chronic peripheral edema, remote history of tobacco use and dependencequit 3 years ago. We have been asked to evaluate the patient for dyspnea. Patient states that he came into the hospital because of trouble breathing although he feels that it is better right now. He states that difficulty of breathing comes and goes. EKG sinus rhythm with no acute ST changes. Chest x-ray: Cardiomegaly and mild pulmonary vascular congestion. WBC 7, hemoglobin 12.5. D-dimer 0.45. Sodium 137, potassium 5.4, CO2 45. BUN 13 creatinine 0.52. proBNP 157. Procalcitonin 0.07. Troponin negative x 1. Influenza A, influenza B, RSV, COVID-19 not detected. Home cardiac medications: Aspirin 81 mg daily, Lasix 20 mg in the morning 10 mg at bedtime, lisinopril 20 mg daily, potassium chloride 20 mill equivalents daily, Brilinta 60 mg twice daily. Patient is also on Mounjaro 7.5 mg weekly. Echocardiogram performed 12/11/2021 reveals EF of 55 to 60%. Suboptimal acoustic windows. Technically difficult study. Review Of Systems: At the time of my exam: CONSTITUTIONAL: Denies fever or chills. HEENT: Denies blurred vision, vision changes, or eye pain. Denies hemoptysis CARDIOVASCULAR: Denies chest pain. Denies PND. Denies palpitations RESPIRATORY: Reports intermittent shortness of breath. Chronic dyspnea on exertion GASTROINTESTINAL: Denies abdominal pain. Denies nausea or vomiting. HEMATOLOGIC: Denies bleeding disorders. GENITOURINARY: Denies any blood in urine. SKIN: Denies pruitis. Denies rash. Physical examination: Gen: This is a morbidly obese 63-year-old male in no acute distress VS: reviewed, blood pressure 128/46, heart rate 74, pulse ox 92% on 5 L nasal cannula. HEENT: Head is atraumatic, normocephalic. Pupils equal, round. Sclerae is anicteric. NECK: Supple. No JVD. LUNGS: Clear to auscultation. No wheezes or rhonchi. No intercostal retractions. HEART: Regular rate and rhythm. 2/6 systolic ejection murmur at the base. ABDOMEN: Soft No tenderness. EXTREMITIES: No pedal edema. No calf tenderness. NEUROLOGICAL: Patient is awake, alert and oriented x3. Assessment: Acute on chronic hypoxic respiratory failure secondary to COPD exacerbation Chronic hypoxic respiratory failure on home O2 at 4 L nasal cannula Obstructive sleep apnea on CPAP Hypertension Morbid obesity History of brain aneurysm status post coiling Chronic dyspnea on exertion Urinary retention requiring Quintanilla Remote history of tobacco use and dependence Plan: Resume patient's home cardiac medications with the following changes: Discontinue IV Lasix Start patient on Bumex 1 mg oral daily Discontinue potassium Start patient on Aldactone 25 mg daily Start patient on Toprol XL 25 mg daily Obtain 2-D echocardiogram and Doppler study to assess cardiac structure and function Further recommendations to follow based upon clinical course Thank you kindly for this consultation. Nurse practitioner note has been reviewed, I agree with documented findings and plan of care. Patient was seen and examined. Past Medical History Past Medical History: COPD, Pneumonia Additional Past Medical History / Comment(s): Pt states prior to today, he was never diagnosed with copd, pneumonia 20 yrs ago, chronic back pain, R arm numbness/tingling and also involves R shoulder. History of Any Multi-Drug Resistant Organisms: None Reported Additional Past Surgical History / Comment(s): Colonoscopies with benign polypectomy, back injections. Past Anesthesia/Blood Transfusion Reactions: No Reported Reaction Past Psychological History: No Psychological Hx Reported Smoking Status: Former smoker Past Alcohol Use History: None Reported Past Drug Use History: None Reported - Past Family History Father Family Medical History: COPD Additional Family Medical History / Comment(s): Father of copd at the age of 69yrs. He was a smoker. Mother Family Medical History: COPD, Hypertension Additional Family Medical History / Comment(s): Mother at the age of 78yrs. Medications and Allergies Home Medications Medication Instructions Recorded Confirmed Type Hydrocodone/Acetaminophen [[place] 1 tab PO QID 10/14/17 10/07/23 History 10-325] Potassium Chloride [Klor-Con 20] 20 meq PO DAILY 05/29/21 10/07/23 History Terbinafine [LamISIL] 250 mg PO DAILY 05/29/21 10/07/23 History Aspirin EC [Ecotrin Low Dose] 81 mg PO DAILY 10/07/23 10/07/23 History Furosemide [Lasix] 10 mg PO HS 10/07/23 10/07/23 History Furosemide [Lasix] 20 mg PO DAILY 10/07/23 10/07/23 History Ipratropium-Albuterol Nebulize 3 ml INHALATION RT-QID PRN 10/07/23 10/07/23 History [Duoneb 0.5 mg-3 mg/3 ml Soln] Loratadine [Claritin] 10 mg PO DAILY 10/07/23 10/07/23 History Pantoprazole Sodium [Protonix] 40 mg PO DAILY 10/07/23 10/07/23 History Ticagrelor [Brilinta] 60 mg PO BID 10/07/23 10/07/23 History Tirzepatide [Mounjaro] 7.5 mg SQ SA 10/07/23 10/07/23 History lisinopriL [Zestril] 20 mg PO DAILY 10/07/23 10/07/23 History metroNIDAZOLE 0.75% CREAM 1 applic TOPICAL DAILY 10/07/23 10/07/23 History [Metrocream 0.75%] Allergies Allergy/AdvReac Type Severity Reaction Status Date / Time prednisone AdvReac Confusion Verified 10/07/23 18:12 Physical Exam Vitals: Vital Signs Temp Pulse Resp BP Pulse Ox 10/08/23 07:58 78 10/08/23 07:48 92 L 10/08/23 07:46 74 10/08/23 05:52 98.2 F 61 18 128/46 91 L 10/08/23 04:49 68 18 110/47 94 L 10/08/23 03:11 68 19 109/58 96 10/08/23 00:17 66 17 110/68 93 L 10/07/23 20:45 68 18 114/45 92 L 10/07/23 19:30 98.1 F 72 19 130/72 91 L 10/07/23 17:20 75 18 138/70 100 Intake and Output 10/07/23 10/08/23 10/08/23 22:59 06:59 14:59 Output Total 2480 Balance -2480 Output: Urine 2480 Uretheral (Quintanilla) 1999 Other: Weight 145.15 kg Results 10/07/23 19:16 10/07/23 19:16 Cardiac Enzymes 10/07/23 10/07/23 Range/Units 19:16 19:16 AST 26 (17-59) U/L Troponin I 0.014 (0.000-0.034) ng/mL Coagulation 10/07/23 Range/Units 19:16 PT 10.0 (10.0-12.5) sec APTT 23.6 (22.0-30.0) sec CBC 10/07/23 Range/Units 19:16 WBC 7.0 (3.8-10.6) k/uL RBC 4.46 (4.30-5.90) m/uL Hgb 12.5 L (13.0-17.5) gm/dL Hct 42.2 (39.0-53.0) % Plt Count 267 (150-450) k/uL Comprehensive Metabolic Panel 10/07/23 Range/Units 19:16 Sodium 137 (137-145) mmol/L Potassium 5.4 H (3.5-5.1) mmol/L Chloride 90 L (98-107) mmol/L Carbon Dioxide 45 H* (22-30) mmol/L BUN 13 (9-20) mg/dL Creatinine 0.52 L (0.66-1.25) mg/dL Glucose 95 (74-99) mg/dL Calcium 8.8 (8.4-10.2) mg/dL AST 26 (17-59) U/L ALT 18 (4-49) U/L Alkaline Phosphatase 47 (38-126) U/L Total Protein 7.0 (6.3-8.2) g/dL Albumin 3.9 (3.5-5.0) g/dL Current Medications Generic Name Dose Route Start Last Admin Trade Name Freq PRN Reason Stop Dose Admin Hydrocodone Bitart/Acetaminophen 1 each 10/07/23 22:00 10/07/23 22:17 Hydrocodone/Apap 10-325mg 1 Each Tab PO 1 each QID ARY Administration Albuterol/Ipratropium 3 ml 10/08/23 08:00 10/08/23 07:41 Ipratropium-Albuterol 3 Ml Neb INHALATION 3 ml RT-QID ARY Administration Albuterol/Ipratropium 3 ml 10/07/23 20:15 Ipratropium-Albuterol 3 Ml Neb INHALATION RT-Q2H PRN Shortness Of Breath Or Wheezing Aspirin 81 mg 10/08/23 09:00 Aspirin 81 Mg PO DAILY [facility] Budesonide/Formoterol Fumarate 2 puff 10/08/23 08:00 10/08/23 07:42 Symbicort 160-4.5 Mcg Inhaler INHALATION 2 puff RT-BID ARY Administration Furosemide 40 mg 10/08/23 09:00 Furosemide 10 Mg/Ml 4 Ml Vial IV Q12HR [facility] Lisinopril 20 mg 10/08/23 09:00 Lisinopril 20 Mg Tab PO DAILY [facility] Loratadine 10 mg 10/08/23 09:00 Loratadine 10 Mg Tab PO DAILY [facility] Naloxone HCl 0.2 mg 10/07/23 20:15 Naloxone 0.4 Mg/Ml 1 Ml Vial IVP Q2M PRN Opioid Reversal Non-Formulary Medication 60 mg 10/07/23 21:00 10/07/23 22:18 Ticagrelor [Brilinta] PO 60 mg BID [facility] Administration Non-Formulary Medication 7.5 mg 10/12/23 20:10 Tirzepatide [Mounjaro] SQ SA [facility] Pantoprazole Sodium 40 mg 10/08/23 09:00 Pantoprazole 40 Mg Tablet PO DAILY [facility] Potassium Chloride 20 meq 10/08/23 09:00 Potassium Chloride Er 20 Meq Tab.Er PO DAILY [facility] Tamsulosin HCl 0.4 mg 10/07/23 22:30 10/08/23 00:12 Tamsulosin 0.4 Mg Cap.Er.24h PO 0.4 mg PC-SUPPER ARY Administration Intake and Output 10/07/23 10/08/23 10/08/23 22:59 06:59 14:59 Output Total 2480 Balance -2480 Output: Urine 2480 Uretheral (Quintanilla) 1999 Other: Weight 145.15 kg 10/07/23 19:16 10/07/23 19:16
--- NOTE | 2023-10-09 10:26 | P.PN ---
Subjective Progress Note Date: 10/09/23 Reason for Consult (text): Dyspnea History of present illness: This is a 63-year-old male patient of Dr. Thompson with past medical history of hypertension, severe COPD, chronic hypoxic respiratory failure on home O2 at 4 L nasal cannula, obstructive sleep apnea on CPAP, morbid obesity, history of brain aneurysm status post coiling done at [facility], chronic dyspnea on exertion, chronic peripheral edema, remote history of tobacco use and dependenc equit 3 years ago. We have been asked to evaluate the patient for dyspnea. Patient states that he came into the hospital because of trouble breathing although he feels that it is better right now. He states that difficulty of breathing comes and goes. EKG sinus rhythm with no acute ST changes. Chest x-ray: Cardiomegaly and mild pulmonary vascular congestion. WBC 7, hemoglobin 12.5. D-dimer 0.45. Sodium 137, potassium 5.4, CO2 45. BUN 13 creatinine 0.52. proBNP 157. Procalcitonin 0.07. Troponin negative x 1. Influenza A, influenza B, RSV, COVID-19 not detected. Home cardiac medications: Aspirin 81 mg daily, Lasix 20 mg in the morning 10 mg at bedtime, lisinopril 20 mg daily, potassium chloride 20 mill equivalents daily, Brilinta 60 mg twice daily. Patient is also on Mounjaro 7.5 mg weekly. Echocardiogram performed 12/11/2021 reveals EF of 55 to 60%. Suboptimal acoustic windows. Technically difficult study. 10/08 Patient is seen today on the OBS unit. Patient is close to baseline. Breathing appears to be stable. Reviewed previous echocardiogram with the patient as well as the medication changes done yesterday. Blood pressure 113/69, heart rate 68, pulse ox 91% on 2 L nasal cannula. Physical examination: Gen: This is a morbidly obese 63-year-old male in no acute distress VS: reviewed HEENT: Head is atraumatic, normocephalic. Pupils equal, round. Sclerae is anicteric. NECK: Supple. No JVD. LUNGS: Clear to auscultation. No wheezes or rhonchi. No intercostal ret ractions. HEART: Regular rate and rhythm. 2/6 systolic ejection murmur at the base. ABDOMEN: Soft No tenderness. EXTREMITIES: No pedal edema. No calf tenderness. NEUROLOGICAL: Patient is awake, alert and oriented x3. Assessment: Acute on chronic hypoxic respiratory failure secondary to COPD exacerbation Chronic hypoxic respiratory failure on home O2 at 4 L nasal cannula Obstructive sleep apnea on CPAP Hypertension Morbid obesity History of brain aneurysm status post coiling Chronic dyspnea on exertion Urinary retention requiring Quintanilla Remote history of tobacco use and dependence Plan: Continue patient's home cardiac medications with the following changes: Continue Bumex 1 mg oral daily Discontinue potassium Continue Aldactone 25 mg daily Continue Toprol XL 25 mg daily Cardiology will sign off this case and follow on an as-needed basis. Please reconsult for any new concerns. Patient may follow-up in the office in one to [address] Thompson. Nurse practitioner note has been reviewed, I agree with documented findings and plan of care. Patient was seen and examined. Objective - Vital Signs Vital signs: Vital Signs Temp 98.3 F 10/09/23 07:00 Pulse 68 10/09/23 07:43 Resp 16 10/09/23 07:00 BP 113/69 10/09/23 07:00 Pulse Ox 91 L 10/09/23 07:00 FiO2 Intake & Output 10/08/23 10/09/23 10/09/23 18:59 06:59 18:59 Intake Total 118 Output Total 550 Balance 118 -550 Weight 145.15 kg Intake: Oral 118 Output: Urine 550 Other: Voiding Method Indwelling Catheter Indwelling Catheter # Bowel Movements 0 - Labs CBC & Chem 7: 10/07/23 19:16 10/07/23 19:16
[2023-10-09 10:41] LABS: BUN/Creat Ratio 26.29 Ratio (12.00-20.00); Blood Urea Nitrogen 18.4 mg/dL (9.0-27.0); Calcium 8.9 mg/dL (8.7-10.3); Carbon Dioxide 38.8 mmol/L (21.6-31.8); Chloride 87 mmol/L (96-109); Glucose 120 mg/dL (70-110); Potassium 4.4 mmol/L (3.5-5.5); Sodium 135 mmol/L (135-145)
--- NOTE | 2023-10-09 13:25 | P.PN ---
Subjective Progress Note Date: 10/09/23 Patient is a 63-year-old white male with past medical history significant for severe COPD, obstructive sleep apnea with home CPAP, chronic hypoxemic respiratory failure normally on 4 L/min nasal cannula, brain aneurysm with previous embolization, hypertension, among other things. His primary care provider is Dr. Irineo Mukherjee. Patient has followed up with Dr. Goff in the pulmonary office in the past, but has not recently followed up. He has severe COPD with an FEV1 35% of predicted. He reportedly quit smoking and drinking alcohol over 3 years ago. He utilizes a Breztri maintenance inhaler and albuterol rescue inhaler as needed. While at home yesterday, the patient was walking to the bathroom and became acutely short of breath. He states that he is chronically short of breath, however, this was worse than normal. He could not catch his breath. He was not able to get to his rescue inhaler, and his called EMS. He is currently in the emergency department, room 16. He is on 5 L/min nasal cannula. He is alert and oriented. No signs of CO2 narcosis. Does not appear particularly short of breath at rest, but does keep standing and sitting at bedside. States his urinary catheter is bothering him. Denies any associated cough, sputum production, hemoptysis, fevers, chest pain. Denies any sick contacts. Denies any heart palpitations, lightheadedness or syncopal events, increased lower extremity swelling. There is a CPAP on standby at the bedside. Patient states that he normally wears a CPAP at at night, unsure of his pressure support. He has had issues with device compliance in the past. He was supposed to follow-up for split-night study with Dr. Goff, but never had follow-up. He does report an intolerance to prednisone and steroids, and wishes to avoid them if possible. He states he gets confused, agitated, and combative when taking systemic steroids. He did reportedly recently undergo a procedure in regards to his brain aneurysm at [facility]. Brain MRA done at our facility on 07/06/2022 showed postembolization changes to the prior left an terior CARLOS aneurysm. No new aneurysms definitively visualized. No neurological deficits reported. Chest x-ray done on admission showed stable cardiomegaly and possible pulmonary vascular congestion, however, film appears underpenetrated. No focal infiltrates or evidence of pneumonia. Afebrile. CBC unremarkable without leukocytosis. Viral screen negative for influenza, RSV, COVID. NT proBNP low. Troponin 0.014. D-dimer low. CMP on arrival: Sodium 137, potassium 5.4, chloride 90, serum bicarb 45, BUN 13, creatinine 0.52, glucose 95. LFTs not elevated. Of note, patient was unable to void on arrival to the emergency room. He was receiving Lasix, and takes Lasix outpatient. He ultimately had a indwelling urinary catheter placed. He does report some burning after the Quintanilla catheter was inserted. No other urinary complaints numbness hematuria, penile discharge, urinary frequency. He states has not had prior issues urinary retention or enlarged prostate. He has been started on Flomax. He remains afebrile. Most recent echocardiogram was from 2021 and estimated preserved left ventricular ejection fraction of 55 to 60%. Hemodynamics are currently stable. The patient is seen today October 09, 2023 in follow-up on the regular medical floor. He is awake and alert sitting up in a chair at the bedside. He is feeling better today compared to yesterday. Currently on 5 L of oxygen per nasal cannula. He is continued on DuoNeb inhalations, Symbicort. He does have an allergy to steroids. His D-dimer was 0.45. His procalcitonin was also negative at 0.07. Sodium 135. Potassium 4.4. Bicarb 39. BUN 18. Creatinine 0.7. Glucose 120. Viral screen was negative. Urinalysis clean. Objective - Vital Signs Vital signs: Vital Signs Temp 98.3 F 10/09/23 07:00 Pulse 72 10/09/23 11:22 Resp 16 10/09/23 07:00 BP 113/69 10/09/23 07:00 Pulse Ox 96 10/09/23 11:00 FiO2 Intake & Output 10/08/23 10/09/23 10/09/23 18:59 06:59 18:59 Intake Total 118 118 Output Total 550 Balance 118 -550 118 Weight 145.15 kg Intake: Oral 118 118 Output: Urine 550 Other: Voiding Method Indwelling Catheter Indwelling Catheter Indwelling Catheter # Bowel Movements 0 - Exam GENERAL EXAM: Alert, pleasant 63-year-old obese male, sitting in a chair, on 5 L/min nasal cannula, in no apparent distress. HEAD: Normocephalic and atraumatic EYES: Normal reaction of pupils, equal size. NOSE: Clear with pink turbinates. THROAT: No erythema or exudates. NECK: No masses, no JVD. CHEST: No chest wall deformity. LUNGS: Equal air entry with no crackles, wheeze, rhonchi or dullness. CVS: S1 and S2 normal with no audible murmur, regular rhythm. No extra heart sounds ABDOMEN: Obese abdomen, no hepatosplenomegaly, active bowel sounds, no guarding or rigidity. SPINE: No scoliosis or deformity SKIN: Left groin erythema, moist CENTRAL NERVOUS SYSTEM: No focal deficits, tone is normal in all 4 extremities. EXTREMITIES: There is no peripheral edema, clubbing, or cyanosis. Peripheral pulses are intact. - Labs CBC & Chem 7: 10/07/23 19:16 10/09/23 06:57 Labs: Abnormal Lab Results - Last 24 Hours (Table) 10/09/23 Range/Units 06:57 Chloride 87 L (96-109) mmol/L Carbon Dioxide 38.8 H (21.6-31.8) mmol/L BUN/Creatinine Ratio 26.29 H (12.00-20.00) Ratio Glucose 120 H (70-110) mg/dL Assessment and Plan Assessment: Suspect acute COPD exacerbation, Chest x-ray done on admission showed stable cardiomegaly and possible pulmonary vascular congestion, however, film appears underpenetrated. NT proBNP was low. No focal infiltrates or evidence of pneumonia. No leukocytosis. No fever. Negative for influenza, RSV, COVID. D- dimer 0.45. Procalcitonin 0.07. Acute on chronic hypoxemic respiratory failure, currently on 5 L/min nasal cannula, secondary to above Severe chronic obstructive pulmonary disease, with an FEV1 35% of predicted. Normally maintained on Breztri maintenance inhaler and as needed albuterol rescue inhaler. Chronic hypoxemic respiratory failure, normally maintained on 4 L/min nasal cannula, secondary to above Obstructive sleep apnea, with home CPAP or BIPAP device, issues with compliance in the past, has not routinely followed up in the pulmonary office. Urinary retention, currently with indwelling urinary catheter and started on Flomax Morbid obesity, with a BMI of 47.3 kg/m, currently on Mounjaro History of hypertension History of brain aneurysm with previous embolization Former tobacco dependence Plan: The patient was seen and evaluated Labs and medications reviewed Improved but not back to his baseline Titrate down the FiO2 as tolerated Sensitivity to steroids, none ordered Remains on DuoNeb inhalations and Symbicort We will continue to follow I have personally seen and examined the patient, performed the documentation and the assessment and plan as written. Number of minutes spent on the visit: 10.
--- NOTE | 2023-10-09 23:41 | PN ---
PROGRESS NOTE SUBJECTIVE: Babatunde Russell remains on his Brilinta, Mounjaro, Protonix, Aldactone, Flomax, Symbicort, [place], Bumex, DuoNeb. He has a CPAP machine figured out with Dr. Goff today, so he can possibly go home once the settings are placed on his BiPAP, CPAP, saturating 93% on 5 L. OBJECTIVE: VITAL SIGNS: Blood pressure 97/53, temp 98.7, pulse 60s, respiratory rate 16 to 18. We will do some orthostatic blood pressure checks done before he goes home. BMI is over 50. CARDIOVASCULAR: S1, S2. LUNGS: Scattered rhonchi, wheeze. PSYCH: Poor mood and affect. Continue current CPAP at night. Breathing treatments today. Prognosis guarded. CPAP settings will have to be set up with Dr. Goff. The patient can be sent home tomorrow after orthostatic changes are ordered. MMODL / IJN: [id number] /
--- NOTE | 2023-10-10 09:51 | CA ---
Transthoracic Echo Report Name: Babatunde Russell Age: 63 Gender: M : 1960 Exam Date: 10/09/2023 18:07 Exam Location: [place] [facility] Ht (in): 69 Wt (lb): 320 Ordering Physician: Chuy Burt DO Attending/Referring Phys: Maturity Checker María Sprague RDCS Procedure CPT: Indications: dyspnea Cardiac Hx: Technical Quality: Very technically difficult study Contrast 1: Definity Total Dose (mL): 2 Contrast 2: Total Dose (mL): MEASUREMENTS (Male / Female) Normal Values 2D ECHO LV Diastolic Diameter PLAX 5.3 cm 4.2 - 5.9 / 3.9 - 5.3 cm LV Systolic Diameter PLAX 3.4 cm IVS Diastolic Thickness 1.1 cm 0.6 - 1.0 / 0.6 - 0.9 cm LVPW Diastolic Thickness 1.2 cm 0.6 - 1.0 / 0.6 - 0.9 cm LV Relative Wall Thickness 0.4 RV Internal Dim ED PLAX 4.5 cm LVOT Diameter 2.5 cm Ascending Aorta Diameter 3.7 cm DOPPLER AV Peak Velocity 143.8 cm/s AV Peak Gradient 8.3 mmHg AV Mean Velocity 115.1 cm/s AV Mean Gradient 5.6 mmHg AV Velocity Time Integral 25.2 cm LVOT Peak Velocity 96.6 cm/s LVOT Peak Gradient 3.7 mmHg LVOT Velocity Time Integral 17.6 cm LVOT Stroke Volume 86.5 cm??? LVOT Stroke Volume Index 34.3 ml/m??? LVOT Cardiac Index 2308.6 cm???/min???m??? AV Area Cont Eq vti 3.4 cm??? AV Area Cont Eq pk 3.3 cm??? MV Area PHT 4.2 cm??? Mitral E Point Velocity 54.7 cm/s Mitral A Point Velocity 44.0 cm/s Mitral E to A Ratio 1.2 MV Deceleration Time 180.0 ms PV Peak Velocity 121.5 cm/s PV Peak Gradient 5.9 mmHg FINDINGS Left Ventricle Left ventricular ejection fraction is estimated at 60-65 % by visual. Mildly increased septal wall thickness. Technically difficult study no clearcut wall motion abnormalities Right Ventricle Right ventricle not well visualized. Right Atrium Right atrium not well visualized. Left Atrium Left atrium not well visualized. Mitral Valve Mitral valve not well visualized. No mitral stenosis, regurgitation or prolapse. Aortic Valve Aortic valve not well visualized. No aortic valve stenosis or regurgitation. Tricuspid Valve Tricuspid valve not well visualized. Pulmonic Valve Pulmonic valve not well visualized. No pulmonic stenosis. No pulmonic regurgitation. Pericardium No pericardial effusion. Prominent epicardial fat. Aorta Normal size aortic root and proximal ascending aorta. CONCLUSIONS Limited study normal LV systolic function. Echo contrast was used. Poor visualization of valvular structures. Cannot comment upon Doppler exam. No clearcut pericardial effusion Previewed by: Dr. Sudhakar Hilton MD (Electronically Signed) Final Date: 10 Oct 2023 09:50
--- NOTE | 2023-10-10 10:02 | P.PN ---
Subjective Progress Note Date: 10/10/23 Reason for Consult (text): Dyspnea History of present illness: This is a 63-year-old male patient of Dr. Thompson with past medical history of hypertension, severe COPD, chronic hypoxic respiratory failure on home O2 at 4 L nasal cannula, obstructive sleep apnea on CPAP, morbid obesity, history of brain aneurysm status post coiling done at [facility], chronic dyspnea on exertion, chronic peripheral edema, remote history of tobacco use and dependenc equit 3 years ago. We have been asked to evaluate the patient for dyspnea. Patient states that he came into the hospital because of trouble breathing although he feels that it is better right now. He states that difficulty of breathing comes and goes. EKG sinus rhythm with no acute ST changes. Chest x-ray: Cardiomegaly and mild pulmonary vascular congestion. WBC 7, hemoglobin 12.5. D-dimer 0.45. Sodium 137, potassium 5.4, CO2 45. BUN 13 creatinine 0.52. proBNP 157. Procalcitonin 0.07. Troponin negative x 1. Influenza A, influenza B, RSV, COVID-19 not detected. Home cardiac medications: Aspirin 81 mg daily, Lasix 20 mg in the morning 10 mg at bedtime, lisinopril 20 mg daily, potassium chloride 20 mill equivalents daily, Brilinta 60 mg twice daily. Patient is also on Mounjaro 7.5 mg weekly. Echocardiogram performed 12/11/2021 reveals EF of 55 to 60%. Suboptimal acoustic windows. Technically difficult study. 10/08 Patient is seen today on the OBS unit. Patient is close to baseline. Breathing appears to be stable. Reviewed previous echocardiogram with the patient as well as the medication changes done yesterday. Blood pressure 113/69, heart rate 68, pulse ox 91% on 2 L nasal cannula. 10/09 Patient is seen in follow-up today. No shortness of breath. He denies having any chest pain. Echocardiogram reveals a limited study with normal LV systolic function. Cannot comment upon Doppler exam. No clear-cut pericardial effusion. Blood pressure 137/66, heart rate 65, pulse ox 92% on 5 L nasal cannula. Physical examination: Gen: This is a morbidly obese 63-year-old male in no acute distress VS: reviewed HEENT: Head is atraumatic, normocephalic. Pupils equal, round. Sclerae is anicteric. NECK: Supple. No JVD. LUNGS: Clear to auscultation. No wheezes or rhonchi. No intercostal retractions. HEART: Regular rate and rhythm. 2/6 systolic ejection murmur at the base. ABDOMEN: Soft No tenderness. EXTREMITIES: No pedal edema. No calf tenderness. NEUROLOGICAL: Patient is awake, alert and oriented x3. Assessment: Acute on chronic hypoxic respiratory failure secondary to COPD exacerbation Chronic hypoxic respiratory failure on home O2 at 4 L nasal cannula Obstructive sleep apnea on CPAP Hypertension Morbid obesity History of brain aneurysm status post coiling Chronic dyspnea on exertion Urinary retention requiring Quintanilla Remote history of tobacco use and dependence Plan: Continue patient's home cardiac medications with the following changes: Continue Bumex 1 mg oral daily Continue Aldactone 25 mg daily Continue Toprol XL 25 mg daily Cardiology will sign off this case and follow on an as-needed basis. Please reconsult for any new concerns. Patient may follow-up in the office in one to [address] Thompson. Nurse practitioner note has been reviewed, I agree with documented findings and plan of care. Patient was seen and examined. Objective - Vital Signs Vital signs: Vital Signs Temp 98.4 F 10/10/23 03:18 Pulse 71 10/10/23 03:18 Resp 18 10/10/23 03:18 BP 141/81 10/10/23 03:18 Pulse Ox 96 10/10/23 03:18 FiO2 Intake & Output 10/09/23 10/10/23 10/10/23 18:59 06:59 18:59 Intake Total 236 Output Total 900 825 Balance -664 -825 Intake: Oral 236 Output: Urine 900 825 Other: Voiding Method Indwelling Catheter Indwelling Catheter # Bowel Movements 0 - Labs CBC & Chem 7: 10/07/23 19:16 10/09/23 06:57 Labs: Abnormal Lab Results - Last 24 Hours (Table) 10/09/23 Range/Units 06:57 Chloride 87 L (96-109) mmol/L Carbon Dioxide 38.8 H (21.6-31.8) mmol/L BUN/Creatinine Ratio 26.29 H (12.00-20.00) Ratio Glucose 120 H (70-110) mg/dL
--- NOTE | 2023-10-10 14:11 | P.PN ---
Subjective Progress Note Date: 10/10/23 Patient is a 63-year-old white male with past medical history significant for severe COPD, obstructive sleep apnea with home CPAP, chronic hypoxemic respiratory failure normally on 4 L/min nasal cannula, brain aneurysm with previous embolization, hypertension, among other things. His primary care provider is Dr. Irineo Mukherjee. Patient has followed up with Dr. Goff in the pulmonary office in the past, but has not recently followed up. He has severe COPD with an FEV1 35% of predicted. He reportedly quit smoking and drinking alcohol over 3 years ago. He utilizes a Breztri maintenance inhaler and albuterol rescue inhaler as needed. While at home yesterday, the patient was walking to the bathroom and became acutely short of breath. He states that he is chronically short of breath, however, this was worse than normal. He could not catch his breath. He was not able to get to his rescue inhaler, and his called EMS. He is currently in the emergency department, room 16. He is on 5 L/min nasal cannula. He is alert and oriented. No signs of CO2 narcosis. Does not appear particularly short of breath at rest, but does keep standing and sitting at bedside. States his urinary catheter is bothering him. Denies any associated cough, sputum production, hemoptysis, fevers, chest pain. Denies any sick contacts. Denies any heart palpitations, lightheadedness or syncopal events, increased lower extremity swelling. There is a CPAP on standby at the bedside. Patient states that he normally wears a CPAP at at night, unsure of his pressure support. He has had issues with device compliance in the past. He was supposed to follow-up for split-night study with Dr. Goff, but never had follow-up. He does report an intolerance to prednisone and steroids, and wishes to avoid them if possible. He states he gets confused, agitated, and combative when taking systemic steroids. He did reportedly recently undergo a procedure in regards to his brain aneurysm at [facility]. Brain MRA done at our facility on 07/06/2022 showed postembolization changes to the prior left an terior CARLOS aneurysm. No new aneurysms definitively visualized. No neurological deficits reported. Chest x-ray done on admission showed stable cardiomegaly and possible pulmonary vascular congestion, however, film appears underpenetrated. No focal infiltrates or evidence of pneumonia. Afebrile. CBC unremarkable without leukocytosis. Viral screen negative for influenza, RSV, COVID. NT proBNP low. Troponin 0.014. D-dimer low. CMP on arrival: Sodium 137, potassium 5.4, chloride 90, serum bicarb 45, BUN 13, creatinine 0.52, glucose 95. LFTs not elevated. Of note, patient was unable to void on arrival to the emergency room. He was receiving Lasix, and takes Lasix outpatient. He ultimately had a indwelling urinary catheter placed. He does report some burning after the Quintanilla catheter was inserted. No other urinary complaints numbness hematuria, penile discharge, urinary frequency. He states has not had prior issues urinary retention or enlarged prostate. He has been started on Flomax. He remains afebrile. Most recent echocardiogram was from 2021 and estimated preserved left ventricular ejection fraction of 55 to 60%. Hemodynamics are currently stable. The patient is seen today October 09, 2023 in follow-up on the regular medical floor. He is awake and alert sitting up in a chair at the bedside. He is feeling better today compared to yesterday. Currently on 5 L of oxygen per nasal cannula. He is continued on DuoNeb inhalations, Symbicort. He does have an allergy to steroids. His D-dimer was 0.45. His procalcitonin was also negative at 0.07. Sodium 135. Potassium 4.4. Bicarb 39. BUN 18. Creatinine 0.7. Glucose 120. Viral screen was negative. Urinalysis clean. Patient is seen today October 10, 2023 in follow-up on the regular medical floor. He is awake and alert in no acute distress. Currently sitting up in a chair at the bedside. Denies any worsening shortness of breath, cough or congestion. Is maintaining O2 saturations in the 90s on 5 L/min per nasal cannula. He is afebrile. Hemodynamically stable. Echocardiogram revealed preserved left v entricular systolic function with ejection fraction 65%. He remains on oral diuretics. Continued on Symbicort and DuoNeb inhalations. Objective - Vital Signs Vital signs: Vital Signs Temp 98.3 F 10/10/23 07:00 Pulse 60 10/10/23 12:23 Resp 16 10/10/23 07:00 BP 137/66 10/10/23 07:00 Pulse Ox 92 L 10/10/23 09:44 FiO2 Intake & Output 10/09/23 10/10/23 10/10/23 18:59 06:59 18:59 Intake Total 236 118 Output Total 900 825 Balance -664 -825 118 Intake: Oral 236 118 Output: Urine 900 825 Other: Voiding Method Indwelling Catheter Indwelling Catheter Indwelling Catheter # Bowel Movements 0 - Exam GENERAL EXAM: Alert, 63-year-old obese male, up in a chair, on 5 L/min nasal cannula, in no apparent distress. HEAD: Normocephalic and atraumatic EYES: Normal reaction of pupils, equal size. NOSE: Clear with pink turbinates. THROAT: No erythema or exudates. NECK: No masses, no JVD. CHEST: No chest wall deformity. LUNGS: Equal air entry with no crackles, wheeze, rhonchi or dullness. CVS: S1 and S2 normal with no audible murmur, regular rhythm. No extra heart sounds ABDOMEN: Obese abdomen, no hepatosplenomegaly, active bowel sounds, no guarding or rigidity. SPINE: No scoliosis or deformity SKIN: Left groin erythema, moist CENTRAL NERVOUS SYSTEM: No focal deficits, tone is normal in all 4 extremities. EXTREMITIES: There is no peripheral edema, clubbing, or cyanosis. Peripheral pulses are intact. - Labs CBC & Chem 7: 10/07/23 19:16 10/09/23 06:57 Assessment and Plan Assessment: Suspect acute COPD exacerbation, Chest x-ray done on admission showed stable cardiomegaly and possible pulmonary vascular congestion, however, film appears underpenetrated. NT proBNP was low. No focal infiltrates or evidence of pneumonia. No leukocytosis. No fever. Negative for influenza, RSV, COVID. D- dimer 0.45. Procalcitonin 0.07. Acute on chronic hypoxemic respiratory failure, currently on 5 L/min nasal cannula, secondary to above Severe chronic obstructive pulmonary disease, with an FEV1 35% of predicted. Normally maintained on Breztri maintenance inhaler and as needed albuterol rescue inhaler. Chronic hypoxemic respiratory failure, normally maintained on 4 L/min nasal cannula, secondary to above Obstructive sleep apnea, with home CPAP or BIPAP device, issues with compliance in the past, has not routinely followed up in the pulmonary office. Urinary retention, currently with indwelling urinary catheter and started on Flomax Morbid obesity, with a BMI of 47.3 kg/m, currently on Mounjaro History of hypertension History of brain aneurysm with previous embolization Former tobacco dependence Plan: The patient was seen and evaluated Medications reviewed Feeling back to his baseline Cleared for discharge from pulmonary standpoint Continue his home pulmonary medications, oxygen Intolerant to steroids Follow-up in our office in 1 week I have personally seen and examined the patient, performed the documentation and the assessment and plan as written. Number of minutes spent on the visit: 10.
[2023-10-11 07:59] VITALS: RESP 16
--- NOTE | 2023-10-11 14:39 | P.PN ---
Subjective Progress Note Date: 10/11/23 Patient is a 63-year-old white male with past medical history significant for severe COPD, obstructive sleep apnea with home CPAP, chronic hypoxemic respiratory failure normally on 4 L/min nasal cannula, brain aneurysm with previous embolization, hypertension, among other things. His primary care provider is Dr. Irineo Mukherjee. Patient has followed up with Dr. Goff in the pulmonary office in the past, but has not recently followed up. He has severe COPD with an FEV1 35% of predicted. He reportedly quit smoking and drinking alcohol over 3 years ago. He utilizes a Breztri maintenance inhaler and albuterol rescue inhaler as needed. While at home yesterday, the patient was walking to the bathroom and became acutely short of breath. He states that he is chronically short of breath, however, this was worse than normal. He could not catch his breath. He was not able to get to his rescue inhaler, and his called EMS. He is currently in the emergency department, room 16. He is on 5 L/min nasal cannula. He is alert and oriented. No signs of CO2 narcosis. Does not appear particularly short of breath at rest, but does keep standing and sitting at bedside. States his urinary catheter is bothering him. Denies any associated cough, sputum production, hemoptysis, fevers, chest pain. Denies any sick contacts. Denies any heart palpitations, lightheadedness or syncopal events, increased lower extremity swelling. There is a CPAP on standby at the bedside. Patient states that he normally wears a CPAP at at night, unsure of his pressure support. He has had issues with device compliance in the past. He was supposed to follow-up for split-night study with Dr. Goff, but never had follow-up. He does report an intolerance to prednisone and steroids, and wishes to avoid them if possible. He states he gets confused, agitated, and combative when taking systemic steroids. He did reportedly recently undergo a procedure in regards to his brain aneurysm at [facility]. Brain MRA done at our facility on 07/06/2022 showed postembolization changes to the prior left an terior CARLOS aneurysm. No new aneurysms definitively visualized. No neurological deficits reported. Chest x-ray done on admission showed stable cardiomegaly and possible pulmonary vascular congestion, however, film appears underpenetrated. No focal infiltrates or evidence of pneumonia. Afebrile. CBC unremarkable without leukocytosis. Viral screen negative for influenza, RSV, COVID. NT proBNP low. Troponin 0.014. D-dimer low. CMP on arrival: Sodium 137, potassium 5.4, chloride 90, serum bicarb 45, BUN 13, creatinine 0.52, glucose 95. LFTs not elevated. Of note, patient was unable to void on arrival to the emergency room. He was receiving Lasix, and takes Lasix outpatient. He ultimately had a indwelling urinary catheter placed. He does report some burning after the Quintanilla catheter was inserted. No other urinary complaints numbness hematuria, penile discharge, urinary frequency. He states has not had prior issues urinary retention or enlarged prostate. He has been started on Flomax. He remains afebrile. Most recent echocardiogram was from 2021 and estimated preserved left ventricular ejection fraction of 55 to 60%. Hemodynamics are currently stable. The patient is seen today October 09, 2023 in follow-up on the regular medical floor. He is awake and alert sitting up in a chair at the bedside. He is feeling better today compared to yesterday. Currently on 5 L of oxygen per nasal cannula. He is continued on DuoNeb inhalations, Symbicort. He does have an allergy to steroids. His D-dimer was 0.45. His procalcitonin was also negative at 0.07. Sodium 135. Potassium 4.4. Bicarb 39. BUN 18. Creatinine 0.7. Glucose 120. Viral screen was negative. Urinalysis clean. Patient is seen today October 10, 2023 in follow-up on the regular medical floor. He is awake and alert in no acute distress. Currently sitting up in a chair at the bedside. Denies any worsening shortness of breath, cough or congestion. Is maintaining O2 saturations in the 90s on 5 L/min per nasal cannula. He is afebrile. Hemodynamically stable. Echocardiogram revealed preserved left v entricular systolic function with ejection fraction 65%. He remains on oral diuretics. Continued on Symbicort and DuoNeb inhalations. The patient is seen today October 11, 2023 in follow-up on the regular medical floor. He is sitting up in a chair. Awake and alert in no acute distress. Denies any worsening shortness of breath, cough or congestion. He is maintaining O2 saturations in the 90s on 5 L/min per nasal cannula. He is continue on DuoNeb inhalations, Symbicort. He is intolerant to steroids. No new labs today. Objective - Vital Signs Vital signs: Vital Signs Temp 97.7 F 10/11/23 07:00 Pulse 68 10/11/23 11:28 Resp 16 10/11/23 07:00 BP 102/63 10/11/23 07:00 Pulse Ox 93 L 10/11/23 07:00 FiO2 Intake & Output 10/10/23 10/11/23 10/11/23 18:59 06:59 18:59 Intake Total 928 236 Output Total 1000 900 Balance 058 1000 -873 Intake: Oral 928 236 Output: Urine 1000 900 Other: Voiding Method Indwelling Catheter Indwelling Catheter Indwelling Catheter # Bowel Movements 1 - Exam GENERAL EXAM: Alert, pleasant 63-year-old obese male, up in a chair, on 5 L/min nasal cannula, in no apparent distress. HEAD: Normocephalic and atraumatic EYES: Normal reaction of pupils, equal size. NOSE: Clear with pink turbinates. THROAT: No erythema or exudates. NECK: No masses, no JVD. CHEST: No chest wall deformity. LUNGS: Equal air entry with no crackles, wheeze, rhonchi or dullness. CVS: S1 and S2 normal with no audible murmur, regular rhythm. No extra heart sounds ABDOMEN: Obese abdomen, no hepatosplenomegaly, active bowel sounds, no guarding or rigidity. SPINE: No scoliosis or deformity SKIN: Left groin erythema, moist CENTRAL NERVOUS SYSTEM: No focal deficits, tone is normal in all 4 extremities. EXTREMITIES: There is no peripheral edema, clubbing, or cyanosis. Peripheral pulses are intact. - Labs CBC & Chem 7: 10/07/23 19:16 10/09/23 06:57 Assessment and Plan Assessment: Suspect acute COPD exacerbation, Chest x-ray done on admission showed stable cardiomegaly and possible pulmonary vascular congestion, however, film appears underpenetrated. NT proBNP was low. No focal infiltrates or evidence of pneumonia. No leukocytosis. No fever. Negative for influenza, RSV, COVID. D- dimer 0.45. Procalcitonin 0.07. Acute on chronic hypoxemic respiratory failure, currently on 5 L/min nasal cannula, secondary to above Severe chronic obstructive pulmonary disease, with an FEV1 35% of predicted. Normally maintained on Breztri maintenance inhaler and as needed albuterol rescue inhaler Chronic hypoxemic respiratory failure, normally maintained on 4 L/min nasal cannula, secondary to above Obstructive sleep apnea, with home CPAP or BIPAP device, issues with compliance in the past, has not routinely followed up in the pulmonary office Urinary retention, currently with indwelling urinary catheter and started on Flomax Morbid obesity, with a BMI of 47.3 kg/m, currently on Mounjaro History of hypertension History of brain aneurysm with previous embolization Former tobacco dependence Plan: The patient was seen and evaluated Medications reviewed, intolerant to steroids Cleared for discharge from pulmonary standpoint Continue his home pulmonary medications, oxygen Continue his home CPAP Follow-up in our office in 1 week I have personally seen and examined the patient, performed the documentation and the assessment and plan as written. Number of minutes spent on the visit: 10.
[2023-10-11 15:56] VITALS: BP 111/54; PULSE 72; TEMP 97.3
--- NOTE | 2023-10-12 05:20 | PN ---
PROGRESS NOTE DATE OF SERVICE: 10/10/2023 SUBJECTIVE: Babatunde Russell is a 63-year-old white male. He is breathing better. He wants to get an MRA prior to going home. We can get it at the time he has to go home. He has been cleared by Pulmonary for discharge. OBJECTIVE: VITAL SIGNS: Stable. Afebrile. Sats are in mid 90s on 4 L. CARDIOVASCULAR: S1, S2. LUNGS: Decreased breath sounds x4. ENDOCRINE: BMI is over 40. ASSESSMENT: COPD, asthma, acute hypoxic respiratory distress, sleep apnea, severe. Continue current medications, CPAP. He was given new ranges for him per Pulmonology, follow up in the Pulmonology office. Continue current treatment. Prognosis guarded. MMODL / IJN: [id number] /
[2023-10-12] MEDS ORDERED: NON FORMULARY DRUG (Tirzepatide [Mounjaro] 7.5 MG/0.5 ML Pen.Injctr) SQ SCH (20:10)
== END 2023-10-11 16:58 | disposition home or self-care (01) ==
LOC: EC 17:02 → 6NMEDSUR 20:15
PROVIDERS: ADMIT Family Medicine; ATTEND Family Medicine
DX: J96.01 Acute respiratory failure with hypoxia (principal); Z86.711 Personal history of pulmonary embolism; Z86.718 Personal history of other venous thrombosis and embolism; J44.9 Chronic obstructive pulmonary disease, unspecified; D50.9 Iron deficiency anemia, unspecified; D64.9 Anemia, unspecified; E87.5 Hyperkalemia; G47.33 Obstructive sleep apnea (adult) (pediatric); Z99.81 Dependence on supplemental oxygen; Z88.8 Allergy status to other drugs, medicaments and biological substances; Z82.5 Family history of asthma and other chronic lower respiratory diseases; Z82.49 Family history of ischemic heart disease and other diseases of the circulatory system; Z79.899 Other long term (current) drug therapy; Z79.82 Long term (current) use of aspirin; Z79.02 Long term (current) use of antithrombotics/antiplatelets; I50.9 Heart failure, unspecified
CPT/HCPCS: 96374; 99285; 51798; 36415; 94660; 94640 ×8; 94760; 93005; 93306; 85379; 83880; 80053; 80048; 83735; 84484; 85025; 85610; 85730; 81003; 84145; 87636; 71046; G0378 ×5; J1940; Q9957